=== PATIENT | female | born 1950 | race Caucasian/White ===

== ENCOUNTER 2020-11-26 06:45 | Inpatient (IN) | payer MEDICARE ==
[2020-11-26] MEDS ORDERED: METOPROLOL TARTRATE 5 MG/5 ML VIAL IVP STA (06:47)
[2020-11-26] MEDS ORDERED: HEPARIN SODIUM,PORCINE 5,000 UNIT/ML 1 ML VIAL IV ONE (06:47)
[2020-11-26] MEDS ORDERED: NITROGLYCERIN SL TABS 0.4 MG TAB SUBLINGUAL PRN (06:47)
[2020-11-26] MEDS ORDERED: SODIUM CHLORIDE 0.9% 1,000 ML IV STA (06:47)
[2020-11-26] MEDS ORDERED: ASPIRIN 81 MG PO STA (06:47)
[2020-11-26] MEDS ORDERED: HEPARIN SODIUM,PORCINE 5,000 UNIT/ML 1 ML VIAL IV PRN (06:47)
[2020-11-26] MEDS ORDERED: NITROGLYCERIN-D5W PMX 50 MG in DEXTROSE/WATER 1 250ML.BAG IV ONE (06:50)
--- NOTE | 2020-11-26 06:50 | ED ---
Chest Pain HPI - General Stated Complaint: Chest Pain Time Seen by Provider: 11/26/20 06:47 Source: RN notes reviewed, old records reviewed Limitations: no limitations - History of Present Illness Initial Comments: This is a 70-year-old female DF for evaluation. Patient is a prehospital STEMI secondary severe chest pain and not feeling well. Severe diaphoresis for a cyst, patient is a poor strain secondary to clinical state history obtained by EMS. Prehospital EKG does show positive ST elevated MS MD Complaint: chest pain -: minutes(s) Onset: during rest, awoke with symptoms Pain Location: substernal, left chest Pain Radiation: none Severity: moderate Severity scale (1-10): 6 Quality: tightness, aching, heaviness Consistency: constant Improves With: nothing Worsens With: nothing Anginal Symptoms: diaphoresis, dyspnea Other Symptoms: acid taste in mouth, palpitations Treatments Prior to Arrival: none - Related Data Home Medications Medication Instructions Recorded Confirmed Levothyroxine Sodium [Synthroid] 88 mcg PO SUTUTHSA 02/24/15 11/26/20 Aspirin 81 mg PO DAILY 02/26/15 11/26/20 hydrALAZINE HCL [Apresoline] 50 mg PO TID 02/26/15 11/26/20 Cholecalciferol (Vitamin D3) 125 mcg PO DAILY 11/26/20 11/26/20 [Vitamin D3 (5000 Iu)] Fish Oil/Dha/Epa [Fish Oil 1,200 1 cap PO DAILY 11/26/20 11/26/20 mg Fish Oil] Levothyroxine Sodium [Synthroid] 100 mcg PO MOWEFR 11/26/20 11/26/20 Vitamin B12/Folate & B6 Sl 1 tab PO DAILY 11/26/20 11/26/20 Previous Rx's Medication Instructions Recorded Atorvastatin [Lipitor] 80 mg PO DAILY #30 tab 11/29/20 Clopidogrel [Plavix] 75 mg PO DAILY #30 tab 11/29/20 Furosemide [Lasix] 20 mg PO DAILY #30 tab 11/29/20 Metoprolol Tartrate [Lopressor] 25 mg PO BID #60 tab 11/29/20 Nitroglycerin Sl Tabs [Nitrostat] 0.4 mg SUBLINGUAL Q5M PRN #25 tab 11/29/20 Pantoprazole [Protonix] 40 mg PO AC-BRKFSOnofre #30 tablet. 11/29/20 amLODIPine [Norvasc] 5 mg PO DAILY #30 tab 11/29/20 bisacodyL [Dulcolax] 5 mg PO BID PRN tablet. 11/29/20 Allergies Allergy/AdvReac Type Severity Reaction Status Date / Time NITRILE GLOVES Allergy Rash/Hives-SYSTEMIC Uncoded 11/26/20 07:11 REACTION Review of Systems ROS Statement: Those systems with pertinent positive or pertinent negative responses have been documented in the HPI. ROS Other: All systems not noted in ROS Statement are negative. EKG Findings - EKG Comments: EKG Findings:: EKG shows prehospital EKG rate of 47, ST elevation inferior to 3 aVF and V1 V2 T-wave inversions, KS 226, QRS 62, QTC 4:30. In hospital. EKG shows sinus bradycardia 47 KS 202 QRS 72 QTC 423 Past Medical History Past Medical History: Hypertension, Thyroid Disorder Additional Past Medical History / Comment(s): FRACTURE LEFT ARM History of Any Multi-Drug Resistant Organisms: None Reported Past Surgical History: Cholecystectomy, Hysterectomy Additional Past Surgical History / Comment(s): BILATERAL OOPHORECTOMY Past Anesthesia/Blood Transfusion Reactions: No Reported Reaction Past Psychological History: No Psychological Hx Reported Past Alcohol Use History: Rare Past Drug Use History: None Reported - Past Family History Mother Daughter(s) Family Medical History: Cancer General Exam General appearance: alert, in no apparent distress, anxious Head exam: Present: atraumatic, normocephalic, normal inspection Eye exam: Present: normal appearance, PERRL, EOMI. Absent: scleral icterus, conjunctival injection, periorbital swelling ENT exam: Present: normal exam, mucous membranes moist Neck exam: Present: normal inspection. Absent: tenderness, meningismus, lymphad enopathy Respiratory exam: Present: normal lung sounds bilaterally. Absent: respiratory distress, wheezes, rales, rhonchi, stridor Cardiovascular Exam: Present: regular rate, normal rhythm, normal heart sounds. Absent: systolic murmur, diastolic murmur, rubs, gallop, clicks GI/Abdominal exam: Present: soft, normal bowel sounds. Absent: distended, tenderness, guarding, rebound, rigid Extremities exam: Present: normal inspection, full ROM, normal capillary refill. Absent: tenderness, pedal edema, joint swelling, calf tenderness Back exam: Present: normal inspection Neurological exam: Present: alert, oriented X3, CN II-XII intact Psychiatric exam: Present: normal affect, normal mood Skin exam: Present: warm, dry, intact, normal color. Absent: rash Course Vital Signs 11/26/20 11/26/20 11/26/20 06:46 07:00 07:02 Temperature 98.3 F Pulse Rate 52 L 58 L 58 L Pulse Rate [ Registered Public Surveyor ] Pulse Rate [ Right Supine Radial] Respiratory 18 18 Rate Blood Pressure 170/146 207/116 Blood Pressure [Left Arm] Blood Pressure [Right Arm] O2 Sat by Pulse 95 94 L Oximetry 11/26/20 11/26/20 11/26/20 07:07 07:27 08:55 Temperature Pulse Rate 52 L Pulse Rate [ 66 Registered Public Surveyor ] Pulse Rate [ 56 L Right Supine Radial] Respiratory 18 16 Rate Blood Pressure Blood Pressure 190/82 [Left Arm] Blood Pressure [Right Arm] O2 Sat by Pulse 95 Oximetry 11/26/20 11/26/20 11/26/20 09:10 09:24 09:40 Temperature Pulse Rate Pulse Rate [ 64 63 62 Registered Public Surveyor ] Pulse Rate [ Right Supine Radial] Respiratory 16 16 16 Rate Blood Pressure Blood Pressure 189/81 130/62 146/65 [Left Arm] Blood Pressure [Right Arm] O2 Sat by Pulse 96 96 96 Oximetry 11/26/20 11/26/20 11/26/20 09:55 10:23 10:50 Temperature Pulse Rate Pulse Rate [ 55 L 65 35 L Registered Public Surveyor ] Pulse Rate [ Right Supine Radial] Respiratory 16 16 Rate Blood Pressure Blood Pressure 124/64 135/66 [Left Arm] Blood Pressure [Right Arm] O2 Sat by Pulse 97 96 Oximetry 11/26/20 11/26/20 11/26/20 10:52 11:11 11:17 Temperature Pulse Rate Pulse Rate [ 74 83 80 Registered Public Surveyor ] Pulse Rate [ Right Supine Radial] Respiratory 16 16 16 Rate Blood Pressure Blood Pressure [Left Arm] Blood Pressure 104/58 133/62 132/64 [Right Arm] O2 Sat by Pulse 94 L 92 L Oximetry 11/26/20 12:30 Temperature 97.5 F L Pulse Rate 74 Pulse Rate [ Registered Public Surveyor ] Pulse Rate [ Right Supine Radial] Respiratory 14 Rate Blood Pressure 147/90 Blood Pressure [Left Arm] Blood Pressure [Right Arm] O2 Sat by Pulse 95 Oximetry - Reevaluation(s) Reevaluation #1: STEMI is paged prior to patient arrival Patient is stabilized and taken to the Tinning Equipment Tender Patient is informed of all results and questions are answered Chest Pain MDM - MDM 70 female DEL with prehospital ST elevated MS, patient taken to catheter lab arrival to ER Critical Care Time Critical Care Time: Yes Total Critical Care Time: 31 Disposition Clinical Impression: STEMI (ST elevation myocardial infarction) Disposition: ADMITTED IP TO THIS HOSP Condition: Good Is patient prescribed a controlled substance at d/c from ED?: No
[2020-11-26] MEDS ORDERED: HEPARIN SOD,PORK IN 0.45% NACL 25,000 UNIT in 0.45% NACL 1 250ML.BAG IV SCH (07:00)
[2020-11-26] MEDS ORDERED: NITROGLYCERIN SL TABS 0.4 MG TAB SUBLINGUAL ONE (07:17)
[2020-11-26] MEDS ORDERED: IV FLUID CONTINUATION 1,000 ML IV ONE (07:17)
[2020-11-26] MEDS ORDERED: LIDOCAINE 1% INJ 10MG/ML (20 ML MDV) SQ ONE (07:24)
[2020-11-26] MEDS ORDERED: MIDAZOLAM 2 MG/2 ML VIAL IV ONE (07:25)
[2020-11-26 07:26] LABS: Basophils # (A) 0.1 k/uL (0-0.2); Basophils % (A) 1 %; Eosinophils # (A) 0.3 k/uL (0-0.7); Eosinophils % (A) 4 %; HGB 16.4 gm/dL (11.4-16.0); Lymphocytes % (A) 37 %; MCH 30.5 pg (25.0-35.0); MCHC 32.1 g/dL (31.0-37.0); Mean Platelet Volume 8.9; Monocytes % (A) 13 %; Neutrophils # (A) 3.3 k/uL (1.3-7.7); Neutrophils % (A) 42 %; Platelet Count 197 k/uL (150-450); RBC 5.37 m/uL (3.80-5.40); RDW 13.9 % (11.5-15.5)
[2020-11-26] MEDS ORDERED: fentaNYL (PF) 50 MCG/ML 2 ML AMP ONE (07:31)
[2020-11-26] MEDS ORDERED: fentaNYL (PF) 50 MCG/ML 2 ML AMP IV ONE (07:33)
--- NOTE | 2020-11-26 07:36 | XR ---
EXAMINATION TYPE: XR chest 1V portable DATE OF EXAM: 11/26/2020 COMPARISON: None INDICATION: Chest pain TECHNIQUE: Single frontal view of the chest is obtained. FINDINGS: The heart size is mildly prominent. The pulmonary vasculature is normal. There may be some mild left lower lobe infiltrate present. This is nonspecific. Correlate for atelect asis. IMPRESSION: 1. Cardiomegaly. 2. Mild left lower lobe infiltrate may be related to atelectasis. Follow-up can be performed as clini mary indicated
[2020-11-26 07:45] LABS: Albumin 4.2 g/dL (3.5-5.0); Calcium 9.5 mg/dL (8.4-10.2); Magnesium 1.9 mg/dL (1.6-2.3); Potassium 4.1 mmol/L (3.5-5.1); Total Bilirubin 0.6 mg/dL (0.2-1.3); Total Protein 7.2 g/dL (6.3-8.2)
[2020-11-26] MEDS ORDERED: IOPAMIDOL-370 100ML BTL INJ ONE (07:56)
[2020-11-26] MEDS ORDERED: IOPAMIDOL-370 125ML BTL INJ ONE ×2 (08:05→08:24)
[2020-11-26] MEDS ORDERED: hydrALAZINE HCL 20 MG/ML 1 ML VIAL ONE (08:21)
[2020-11-26] MEDS ORDERED: hydrALAZINE HCL 20 MG/ML 1 ML VIAL IV ONE (08:24)
[2020-11-26] MEDS ORDERED: FUROSEMIDE 10 MG/ML 4 ML VIAL ONE (08:26)
[2020-11-26] MEDS ORDERED: RX INFO: IV CONTRAST WAS GIVEN 1 EACH MISC MISCELLANE PRN (08:34)
[2020-11-26] MEDS ORDERED: FUROSEMIDE 10 MG/ML 4 ML VIAL IV ONE (08:39)
[2020-11-26] MEDS ORDERED: SODIUM CHLORIDE 0.9% 1,000 ML IV SCH (08:45)
[2020-11-26] MEDS ORDERED: LEVOTHYROXINE 88 MCG TAB PO SCH (08:45)
--- NOTE | 2020-11-26 08:47 | P.CRDCN ---
History of Present Illness Consult date: 11/26/20 Chief complaint: Chest pain History of present illness: This is a 70-year-old female patient with hypertension and dyslipidemia who we consulted to see for further evaluation of chest discomfort and possible acute ST segment elevation myocardial infarction. 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 The discomfort was in the middle of the chest as a pre ssure/sharp kind of discomfort with some radiation to her left arm. No associated symptoms of shortness of breath or sweating or dizziness or syncope. In the emergency room we called to see her for possible STEMI. 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 Finally I did perform an aortic root angiogram which revealed fairly calcified right coronary artery which probably is occluded. Potentially down the line she to undergo a CTA for further clarification. We and did not blink any angioplasty on the left circumflex coronary artery because the patient was chest pain-free throughout the procedure. Please note that the patient's blood pressure was more than 200 mm systolic throughout the procedure and also her left ventricular end-diastolic pressure was 35 mmHg. The procedure was performed from the right common femoral artery and ended without any complication. The patient was chest pain-free by the end of the procedure. Past Medical History Past Medical History: Hypertension, Thyroid Disorder Additional Past Medical History / Comment(s): FRACTURE LEFT ARM History of Any Multi-Drug Resistant Organisms: None Reported Past Surgical History: Cholecystectomy, Hysterectomy Additional Past Surgical History / Comment(s): BILATERAL OOPHORECTOMY Past Anesthesia/Blood Transfusion Reactions: No Reported Reaction Past Psychological History: No Psychological Hx Reported Past Alcohol Use History: Rare Past Drug Use History: None Reported - Past Family History Mother Daughter(s) Family Medical History: Cancer Medications and Allergies Home Medications Medication Instructions Recorded Confirmed Type Levothyroxine Sodium [Synthroid] 88 mcg PO MOTUWETHFR 02/24/15 11/26/20 History Aspirin 81 mg PO DAILY 02/26/15 11/26/20 History hydrALAZINE HCL [Apresoline] 50 mg PO QID 02/26/15 11/26/20 History Cholecalciferol (Vitamin D3) 125 mcg PO DAILY 11/26/20 11/26/20 History [Vitamin D3 (5000 Iu)] Fish Oil/Dha/Epa [Fish Oil 1,200 1 cap PO DAILY 11/26/20 11/26/20 History mg Fish Oil] Levothyroxine Sodium [Synthroid] 100 mcg PO SUSA 11/26/20 11/26/20 History Metoprolol Tartrate [Lopressor] 100 mg PO BID 11/26/20 11/26/20 History Vitamin B12/Folate & B6 Sl 1 tab PO DAILY 11/26/20 11/26/20 History Allergies Allergy/AdvReac Type Severity Reaction Status Date / Time NITRILE GLOVES Allergy Rash/Hives-SYSTEMIC Uncoded 11/26/20 07:11 REACTION Physical Exam Vitals: Vital Signs Temp Pulse Pulse Resp BP Pulse Ox 11/26/20 07:27 56 L 11/26/20 07:07 52 L 18 11/26/20 07:02 58 L 18 207/116 94 L 11/26/20 07:00 58 L 11/26/20 06:46 98.3 F 52 L 18 170/146 95 Intake and Output 11/25/20 11/26/20 11/26/20 22:59 06:59 14:59 Intake Total 200 Balance 200 Intake: IV 200 Other: Weight 96.615 kg - Constitutional General appearance: no acute distress - Respiratory Respiratory: bilateral: diminished - Cardiovascular Rhythm: regular Results 11/26/20 06:50 11/26/20 07:02 Cardiac Enzymes 11/26/20 11/26/20 Range/Units 07:02 07:02 AST 32 (14-36) U/L Troponin I <0.012 (0.000-0.034) ng/mL CBC 11/26/20 Range/Units 06:50 WBC 8.0 (3.8-10.6) k/uL RBC 5.37 (3.80-5.40) m/uL Hgb 16.4 H (11.4-16.0) gm/dL Hct 51.0 H (34.0-46.0) % Plt Count 197 (150-450) k/uL Comprehensive Metabolic Panel 11/26/20 Range/Units 07:02 Sodium 140 (137-145) mmol/L Potassium 4.1 (3.5-5.1) mmol/L Chloride 106 (98-107) mmol/L Carbon Dioxide 26 (22-30) mmol/L BUN 25 H (7-17) mg/dL Creatinine 1.34 H (0.52-1.04) mg/dL Glucose 143 H (74-99) mg/dL Calcium 9.5 (8.4-10.2) mg/dL AST 32 (14-36) U/L ALT 30 (4-34) U/L Alkaline Phosphatase 82 (38-126) U/L Total Protein 7.2 (6.3-8.2) g/dL Albumin 4.2 (3.5-5.0) g/dL Current Medications Generic Name Dose Route Start Last Admin Trade Name Freq PRN Reason Stop Dose Admin Aspirin 81 mg 11/26/20 09:00 Aspirin 81 Mg PO DAILY [facility] Atorvastatin Calcium 80 mg 11/26/20 09:00 Atorvastatin 80 Mg Tab PO DAILY [facility] Cholecalciferol 125 mcg 11/26/20 09:00 Cholecalciferol 25 Mcg (1000 Iu) Tablet PO DAILY [facility] Heparin Sodium (Porcine) 0 unit 11/26/20 06:47 Heparin Sodium,Porcine 5,000 Unit/Ml 1 Ml Vial IV Q6HR PRN Low PTT Protocol Hydralazine HCl 50 mg 11/26/20 09:00 Hydralazine Hcl 50 Mg Tab PO QID [facility] Sodium Chloride 1,000 mls @ 100 mls/hr 11/26/20 06:47 11/26/20 07:01 Saline 0.9% IV 11/26/20 16:46 100 mls/hr .Q10H STA Administration Heparin Sodium/Sodium Chloride 250 mls @ 10 mls/hr 11/26/20 07:00 25,000 unit/ Sodium Chloride IV .Q24H [facility] Protocol 10.35 UNITS/KG/HR Nitroglycerin/Dextrose 50 mg/ 250 mls @ 3 mls/hr 11/26/20 06:50 IV Solution IV 11/27/20 06:49 .Q24H ONE Protocol 10 MCG/MIN Sodium Chloride 1,000 mls @ 50 mls/hr 11/26/20 08:45 Saline 0.9% IV 11/26/20 16:46 .Q20H [facility] Levothyroxine Sodium 88 mcg 11/26/20 08:45 Levothyroxine 88 Mcg Tab PO [id number] [facility] Levothyroxine Sodium 100 mcg 11/29/20 06:30 Levothyroxine 100 Mcg Tab PO [id number] [facility] Metoprolol Tartrate 100 mg 11/26/20 09:00 Metoprolol Tartrate 50 Mg Tab PO BID [facility] Miscellaneous Information 1 each 11/26/20 08:34 Rx Info: Iv Contrast Was Given 1 Each Misc MISCELLANE 11/28/20 08:34 DAILY PRN Per Protocol Morphine Sulfate 4 mg 11/26/20 06:47 Morphine Sulfate 4 Mg/Ml Syringe IV Q4HR PRN Chest Pain Nitroglycerin 0.4 mg 11/26/20 06:47 Nitroglycerin Sl Tabs 0.4 Mg Tab SUBLINGUAL Q5M PRN Chest Pain Non-Formulary Medication 1 cap 11/26/20 09:00 Fish Oil/Dha/Epa [Fish Oil 1,200 Mg Fish Oil] PO DAILY [facility] Non-Formulary Medication 1 tab 11/26/20 09:00 Vitamin B12/Folate & B6 Sl PO DAILY [facility] Intake and Output 11/25/20 11/26/20 11/26/20 22:59 06:59 14:59 Intake Total 200 Balance 200 Intake: IV 200 Other: Weight 96.615 kg 11/26/20 06:50 11/26/20 07:02 Assessment and Plan Assessment: Assessment #1 hypertension emergency #2 elevated left ventricular end-diastolic pressure #3 chest discomfort which has resolved and likely related to hypertension emergency #4 dyslipidemia Plan #1 blood pressure control #2 DC metoprolol in view of the bradycardia #3 start the patient on Norvasc #4 start the patient on IV diuretics #5 continue aspirin #6 high intensity statin #7 an echocardiogram was Doppler #8 monitor the kidney function and electrolytes #9 consider PCI of the left circumflex if the patient started symptomatic again Thank you for allowing us participate in her care
[2020-11-26] MEDS ORDERED: METOPROLOL TARTRATE 25 MG TAB PO SCH (09:00)
[2020-11-26] MEDS ORDERED: CHOLECALCIFEROL 25 MCG (1000 IU) TABLET PO SCH (09:00)
[2020-11-26] MEDS ORDERED: METOPROLOL TARTRATE 50 MG TAB PO SCH (09:00)
[2020-11-26] MEDS: amLODIPine 5 MG TAB PO SCH (09:37)
[2020-11-26] MEDS: hydrALAZINE HCL 50 MG TAB PO SCH ×4 (09:37→21:19)
--- NOTE | 2020-11-26 09:40 | LTR ---
November 26, 2020 Re: Sybil Maldonado Dear Dr. Moore: Mrs. Sybil Maldonado presented to [facility] with chest discomfort concerning for acute coronary syndrome. 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 Her pressure was severely elevated and also her left ventricular end-diastolic pressure. I advised the patient to be treated medically at this point. If she continues to be symptomatic, we will consider doing PCI of the left circumflex coronary artery. Sincerely, MD VIDAL Wells / SINGH: [id number] /
--- NOTE | 2020-11-26 09:49 | CC ---
CARDIAC CATHETERIZATION REPORT DATE OF SERVICE: November 26, 2020 PERFORMING PHYSICIAN: Sky Foss MD. PROCEDURE PERFORMED: 1. Selective left and right coronary angiogram. 2. Left heart catheterization. 3. Aortic root angiogram. INDICATION: This is a 70-year-old female patient with hypertension and dyslipidemia who presented to the emergency department complaining of chest discomfort. She was seen and evaluated in the ER where there was a concern about acute coronary syndrome and because of that, a heart catheterization was advised. APPROACH: Right common femoral artery. COMPLICATION: None. LEVEL OF SEDATION: Moderate with sedation length of 78 minutes. PROCEDURE DESCRIPTION: After obtaining an informed consent, the patient was brought to the cardiac farm labor contractor. The right common femoral artery was cannulated using micropuncture technique and a micropuncture wire passed easily then I placed a 6-Arabic sheath at the right common femoral artery. I did perform selective left coronary angiogram with JL4 catheter. Attempting performing selective right coronary angiogram was unsuccessful in spite of trying JR4 catheter, Rudy Right catheter, Rudy Right Posterior catheter, an AL 0.75, an AL1, an ALT 2, and multipurpose, and also the XB right catheter, and also an AR catheters. After that I did non selective right coronary angiogram and aortic root angiogram which revealed very calcified right coronary artery which possibly chronically occluded as well. After that, I did left heart catheterization using 6-Arabic pigtail catheter. The procedure was completed without any complication. SELECTIVE CORONARY ANGIOGRAM: 1. The left main is a large caliber vessel. It is angiographically normal. It bifurcates into LCX and LAD. 2. The LCX is a large caliber vessel. The proximal left circumflex appeared to have intermediate to severe lesion in the range of 60% to 70%.. It gives rise into the first obtuse marginal branch which appeared to be angiographically normal. The circumflex continues after that as a small to medium caliber vessel in the AV groove. 3. The LAD: The proximal LAD is angiographically normal. The mid LAD has mild disease only and the LAD distally appeared to be angiographically normal. The LAD gives rise into diagonal branch which seems to be angiographically normal. 4. The right coronary artery as I mentioned was not opacified. AORTIC ROOT ANGIOGRAM: The aortic root angiogram was performed in the BURGESS projection and using a power injection. The aortic root appeared to be angiographically normal without any evidence of dissection. HEMODYNAMICS: The LVEDP was 35 mmHg without significant gradient across the aortic valve. CONCLUSION: 1. Calcified right and left coronary systems. 2. Intermediate to severe lesion involving the proximal left circumflex coronary artery. 3. Mild disease involving the left anterior descending artery. 4. The RCA was not opacified and probably chronically occluded. 5. Severely elevated LVEDP. POSTPROCEDURE MANAGEMENT: 1. Get the blood pressure under control. 2. Anti-platelet medications. 3. High-intensity statin. 4. Blood pressure control. 5. Obtain an echocardiogram with Doppler. 6. Follow up with the patient. MMODL / IJN: [id number] /
[2020-11-26] MEDS ORDERED: HYDROmorphone 1 MG/ML 1 ML SYRINGE ONE (10:30)
[2020-11-26] MEDS: ASPIRIN 81 MG PO SCH (11:39)
--- NOTE | 2020-11-26 11:59 | ECHOF ---
Referral Reason:ACS MEASUREMENTS -------- HEIGHT: 157.5 cm WEIGHT: 96.6 kg BP: 189/81 RVIDd: 2.8 cm (< 3.3) IVSd: 1.4 cm (0.6 - 1.1) LVIDd: 3.6 cm (3.9 - 5.3) LVPWd: 1.3 cm (0.6 - 1.1) IVSs: 1.9 cm LVIDs: 2.4 cm LVPWs: 1.5 cm LA Diam: 3.6 cm (2.7 - 3.8) Ao Diam: 3.2 cm (2.0 - 3.7) AV Cusp: 2.4 cm (1.5 - 2.6) MV EXCURSION: 15.119 mm (> 18.000) MV EF SLOPE: 25 mm/s (70 - 150) EPSS: 1.4 cm MV E Adolph: 0.90 m/s MV DecT: 288 ms MV A Adolph: 1.12 m/s MV E/A Ratio: 0.80 RAP: 5.00 mmHg RVSP: 30.53 mmHg FINDINGS -------- Resting bradycardia (HR<60bpm). This was a technically difficult study with suboptimal views. The left ventricular size is normal. There is moderate concentric left ventricular hypertrophy. O verall left ventricular systolic function is normal with, an EF between 60 - 65 %. The right ventricle is normal in size. The left atrium is normal in size. The right atrium was not well visualized. Lumason used Interatrial and interventricular septum intact. Aortic valve is trileaflet and is mildly thickened. The mitral valve is normal. Mild tricuspid regurgitation present. Right ventricular systolic pressure is normal at < 35 mmHg. The pulmonic valve was not well visualized. The aortic root size is normal. Normal inferior vena cava with normal inspiratory collapse consistent with estimated right atrial pre ssure of 5 mmHg. There is no pericardial effusion. CONCLUSIONS -------- 1. The left ventricular size is normal. 2. There is moderate concentric left ventricular hypertrophy. 3. Overall left ventricular systolic function is normal with, an EF between 60 - 65 %. 4. Lumason used 5. Aortic valve is trileaflet and is mildly thickened. 6. Mild tricuspid regurgitation present. 7. There is no pericardial effusion. DIRECTOR OF FOOD AND NUTRITION SERVICES: Jazzmine Bryan RDCS
[2020-11-26 12:07] LABS: Glucose,Whole Blood 138 mg/dL (75-99)
--- NOTE | 2020-11-26 12:12 | P.HPIM ---
History of Present Illness H&P Date: 11/26/20 HISTORY OF PRESENT ILLNESS This is a 70-year-old female patient of Dr. Moore with past medical history of hypertension, hypothyroidism, active tobacco use. Patient was last seen in the office 2 days ago at that time had lab work done and did not have any complaints of chest pain. Patient states she had sudden onset of chest pain at 550 this morning and thought it was heartburn-type and tightening in her chest. She also had sweats and shortness of breath. She came into [facility] emergency center for evaluation and EKG by EMS was concerning for ST elevated myocardial infarction and underwent an emergent heart catheterization with Dr. 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 Aaortic root angiogram revealed fairly calcified right coronary artery which probably is occluded. Potentially down the line she to undergo a CTA for further clarification. she did not undergo angioplasty on the left circumflex coronary artery because the patient was chest pain-free throughout the procedure. blood pressure was elevated throughout procedure and Norvasc was added and recommended discontinuing the metoprolol due to alexis ycardia. Patient is seen today on the extended care unit. REVIEW OF SYSTEMS At the time of evaluation: Constitutional: No fever, no chills, no night sweats. No weight change. No weakness, fatigue or lethargy. No daytime sleepiness. EENT: No headache. No blurred vision or double vision, no loss of vision. No loss of Hearing, no ringing in the ears, no dizziness. No nasal drainage or congestion. No epistaxis. No sore throat. Lungs: No shortness of breath, cough, no sputum production. No wheezing. Cardiovascular: No chest pain, no lower extremity edema. No palpitations. No paroxysmal nocturnal dyspnea. No orthopnea. No lightheadedness or dizziness. No syncopal episodes. Abdominal: No abdominal pain. No nausea, vomiting. No diarrhea. No constipation. No bloody or tarry stools.. No loss of appetite. Genitourinary: No dysuria, increased frequency, urgency. No urinary retention. Musculoskeletal: No myalgias. No muscle weakness, no gait dysfunction, no frequent falls. No back pain. No neck pain. Integumentary: No wounds, no lesions. No rash or pruritus. No unusual bruising. No change in hair or nails. Neurologic: No aphasia. No facial droop. No change in mentation. No head injury. No headache. No paralysis. No paresthesia. Psychiatric: No depression. No anxiety. No mood swings. Endocrine: No abnormal blood sugars. No weight change. No excessive sweating or thirst. No cold intolerance. SOCIAL HISTORY patient is an active smoker cut down to 3 cigarettes per day and has been smoking for greater than 50 years. She denies any marijuana or street drug use. No alcohol use. Patient lives at home with her . FAMILY HISTORY Mother at age 86 with history of hypertension. Father is alive at age 91 with history of hypertension, coronary artery disease, diabetes. Patient has 2 brothers with no major medical problems. Patient has 3 sisters and one has history of diabetes. Patient has 1 son and 2 daughters with no major medical problems. PHYSICAL EXAMINATION Gen: This is a 70-year-old obese female. She is resting on a stretcher and a ppears to be in no acute distress. HEENT: Head is atraumatic, normocephalic. Pupils equal, round. Sclerae is anicteric. Oral mucous membranes slightly dry. NECK: Supple. No JVD. No lymphadenopathy. No thyromegaly. LUNGS: Clear to auscultation. No wheezes or rhonchi. No intercostal retractions. HEART: Regular rate and rhythm. No murmur. ABDOMEN: Soft. Bowel sounds are present. No masses. No tenderness. EXTREMITIES: No pedal edema. No calf tenderness. NEUROLOGICAL: Patient is awake, alert and oriented x3. Cranial nerves 2 through 12 are grossly intact. ASSESSMENT AND PLAN 1. Chest pain secondary to hypertensive emergency status post heart catheterization with Dr. Foss. Continue aspirin 81 mg daily, Lipitor 80 mg daily, Norvasc 5 mg daily. 2. Hypertensive emergency. Patient started on Norvasc 5 mg daily, continue hydralazine 50 mg qid, lasix 20 mg IVP every 12 hours. Lopressor discontinued. 3. Bradycardia. Metoprolol discontinued. 4. Hypothyroidism. Continue levothyroxine 88 g Tuesday through Tuesday and 100 g on Tuesday and Tuesday 5. Chronic kidney disease stage 3. Avoid nephrotoxic agents. 6. Tobacco use and dependence. Nicotine patch. 7. GI prophylaxis. Protonic 40 mg po daily. Patient will be admitted to the hospital for a minimum of 2 night stay. DISCHARGE PLAN Home. Impression and plan of care have been directed as dictated by the signing physician. Micki Pinedo nurse practitioner acting as scribe for signing physician. Past Medical History Past Medical History: Hypertension, Thyroid Disorder Additional Past Medical History / Comment(s): FRACTURE LEFT ARM History of Any Multi-Drug Resistant Organisms: None Reported Past Surgical History: Cholecystectomy, Hysterectomy Additional Past Surgical History / Comment(s): BILATERAL OOPHORECTOMY Past Anesthesia/Blood Transfusion Reactions: No Reported Reaction Past Psychological History: No Psychological Hx Reported Past Alcohol Use History: Rare Past Drug Use History: None Reported - Past Family History Mother Daughter(s) Family Medical History: Cancer Medications and Allergies Home Medications Medication Instructions Recorded Confirmed Type Levothyroxine Sodium [Synthroid] 88 mcg PO MOTUWETHFR 02/24/15 11/26/20 History Aspirin 81 mg PO DAILY 02/26/15 11/26/20 History hydrALAZINE HCL [Apresoline] 50 mg PO TID 02/26/15 11/26/20 History Cholecalciferol (Vitamin D3) 125 mcg PO DAILY 11/26/20 11/26/20 History [Vitamin D3 (5000 Iu)] Fish Oil/Dha/Epa [Fish Oil 1,200 1 cap PO DAILY 11/26/20 11/26/20 History mg Fish Oil] Levothyroxine Sodium [Synthroid] 100 mcg PO SUSA 11/26/20 11/26/20 History Metoprolol Tartrate [Lopressor] 100 mg PO BID 11/26/20 11/26/20 History Vitamin B12/Folate & B6 Sl 1 tab PO DAILY 11/26/20 11/26/20 History Allergies Allergy/AdvReac Type Severity Reaction Status Date / Time NITRILE GLOVES Allergy Rash/Hives-SYSTEMIC Uncoded 11/26/20 07:11 REACTION Physical Exam Vitals: Vital Signs Temp Pulse Pulse Resp BP Pulse Ox 11/26/20 07:27 56 L 11/26/20 07:07 52 L 18 11/26/20 07:02 58 L 18 207/116 94 L 11/26/20 07:00 58 L 11/26/20 06:46 98.3 F 52 L 18 170/146 95 Intake and Output 11/25/20 11/26/20 11/26/20 22:59 06:59 14:59 Intake Total 200 Balance 200 Intake: IV 200 Other: Weight 96.615 kg Results CBC & Chem 7: 11/26/20 06:50 11/26/20 07:02 Labs: Abnormal Lab Results - Last 24 Hours (Table) 11/26/20 11/26/20 Range/Units 06:50 07:02 Hgb 16.4 H (11.4-16.0) gm/dL Hct 51.0 H (34.0-46.0) % BUN 25 H (7-17) mg/dL Creatinine 1.34 H (0.52-1.04) mg/dL Glucose 143 H (74-99) mg/dL
[2020-11-26] MEDS: NICOTINE 7MG/24HR PATCH TRANSDERM SCH (12:17)
[2020-11-26] MEDS: B6 PO SCH (12:27)
[2020-11-26] MEDS: NON FORMULARY DRUG (Fish Oil/Dha/Epa [Fish Oil 1,200 Mg Fish Oil] 1 EACH Capsule) PO SCH (12:27)
[2020-11-26] MEDS: FOLATE PO SCH (12:27)
[2020-11-26] MEDS: VITAMIN B12 PO SCH (12:27)
[2020-11-26] MEDS: ATORVASTATIN 80 MG TAB PO SCH (13:00)
[2020-11-26] MEDS: LEVOTHYROXINE 100 MCG TAB PO SCH (14:58)
[2020-11-26] MEDS: MORPHINE SULFATE 4 MG/ML SYRINGE IV PRN (19:01)
[2020-11-26] MEDS: CHOLECALCIFEROL 25 MCG (1000 IU) TABLET PO SCH (21:19)
[2020-11-26] MEDS: FUROSEMIDE 10 MG/ML 2 ML VIAL IV SCH (21:19)
[2020-11-27 05:02] LABS: Basophils # (A) 0.1 k/uL (0-0.2); Basophils % (A) 0 %; Eosinophils # (A) 0.1 k/uL (0-0.7); Eosinophils % (A) 1 %; HGB 15.8 gm/dL (11.4-16.0); Lymphocytes # (A) 1.5 k/uL (1.0-4.8); Lymphocytes % (A) 11 %; MCH 30.7 pg (25.0-35.0); MCHC 32.2 g/dL (31.0-37.0); MCV 95.2 fL (80.0-100.0); Mean Platelet Volume 8.9; Monocytes # (A) 1.2 k/uL (0-1.0); Monocytes % (A) 9 %; Neutrophils # (A) 10.8 k/uL (1.3-7.7); Neutrophils % (A) 78 %; Platelet Count 197 k/uL (150-450); RBC 5.15 m/uL (3.80-5.40); RDW 13.7 % (11.5-15.5); WBC 13.8 k/uL (3.8-10.6)
[2020-11-27 06:16] LABS: Calcium 9.9 mg/dL (8.4-10.2); Potassium 4.5 mmol/L (3.5-5.1)
[2020-11-27] MEDS: PANTOPRAZOLE 40 MG TABLET PO SCH (06:53)
[2020-11-27] MEDS: LEVOTHYROXINE 88 MCG TAB PO SCH (06:55)
[2020-11-27] MEDS ORDERED: ASPIRIN 325 MG TAB PO SCH (09:00)
--- NOTE | 2020-11-27 11:25 | PN ---
PROGRESS NOTE Sybil is a 70-year-old lady who is admitted to the hospital with acute myocardial infarction and underwent emergent cardiac catheterization that showed moderate to severe stenosis involving circumflex coronary artery. The right coronary artery could not be visualized on this test. The patient ruled in for myocardial infarction. The peak troponin was 37 this morning. At the time of my evaluation, she is free of symptoms. Denies chest pain or difficulty in breathing. PHYSICAL EXAMINATION: Afebrile. Heart rate is 61 beats per minute. Blood pressure is 130/72. Respiratory rate is 18. O2 saturation is 95% on 2 L. There is no jugular venous distention. Chest exam reveals good air entry bilaterally. Heart exam reveals first and second heart sounds. Systolic murmur at the apex. Abdomen is soft. Examination of extremities did not reveal any edema. Groin is free of bleeding, bruit or hematoma. Foot pulses are intact. LABS: Labs show that the hemoglobin is 15.8, platelet count is 197. Potassium is 4.5. Creatinine is 1.3. Troponin is 37. Total cholesterol is 176, LDL is 93, HDL is 60. ASSESSMENT: Acute myocardial infarction, status post catheterization and advised medical therapy. Right coronary artery could not be visualized and patient has a moderate stenosis involving circumflex coronary artery. Her echocardiogram showed normal LV systolic function without any wall motion abnormalities. An EKG showed sinus bradycardia with poor R-wave progression. PLAN: The patient will continue with aspirin. I will add Plavix. Continue the amlodipine, is refusing Lipitor and she is on hydralazine, which I am going to continue. I will transfer her out of ICU. MMODL / IJN: [id number] /
[2020-11-27] MEDS: MORPHINE SULFATE 4 MG/ML SYRINGE IV PRN (11:30)
[2020-11-27] MEDS: hydrALAZINE HCL 50 MG TAB PO SCH ×4 (11:31→22:02)
[2020-11-27] MEDS: ATORVASTATIN 80 MG TAB PO SCH (11:31)
[2020-11-27] MEDS: ASPIRIN 81 MG PO SCH (11:32)
[2020-11-27] MEDS: FUROSEMIDE 10 MG/ML 2 ML VIAL IV SCH ×2 (11:32→22:02)
[2020-11-27] MEDS: VITAMIN B12 PO SCH (11:33)
[2020-11-27] MEDS: FOLATE PO SCH (11:33)
[2020-11-27] MEDS: B6 PO SCH (11:33)
[2020-11-27] MEDS: NON FORMULARY DRUG (Fish Oil/Dha/Epa [Fish Oil 1,200 Mg Fish Oil] 1 EACH Capsule) PO SCH (11:33)
[2020-11-27] MEDS: NICOTINE 7MG/24HR PATCH TRANSDERM SCH ×2 (11:46→15:48)
[2020-11-27] MEDS: amLODIPine 5 MG TAB PO SCH (11:46)
[2020-11-27] MEDS: METOPROLOL TARTRATE 25 MG TAB PO SCH ×2 (11:46→22:02)
--- NOTE | 2020-11-27 16:41 | P.PN ---
Subjective Progress Note Date: 11/27/20 HISTORY OF PRESENT ILLNESS This is a 70-year-old female patient of Dr. Moore with past medical history of hypertension, hypothyroidism, active tobacco use. Patient was last seen in the office 2 days ago at that time had lab work done and did not have any complaints of chest pain. Patient states she had sudden onset of chest pain at 550 this morning and thought it was heartburn-type and tightening in her chest. She also had sweats and shortness of breath. She came into [facility] emergency center for evaluation and EKG by EMS was concerning for ST elevated myocardial infarction and underwent an emergent heart catheterization with Dr. 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 Aaortic root angiogram revealed fairly calcified right coronary artery which probably is occluded. Potentially down the line she to undergo a CTA for further clarification. she did not undergo angioplasty on the left circumflex coronary artery because the patient was chest pain-free throughout the procedure. blood pressure was elevated throughout procedure and Norvasc was added and recommended discontinuing the metoprolol due to bradycardi a. Patient is seen today on the extended care unit. 11/27: Echocardiogram reveals EF of 60-65% with moderate concentric left ventricle hypertrophy, mild tricuspid regurgitation, suboptimal study. EKG was sinus bradycardia and poor R-wave progression. Cardiology has added Plavix to her regime and has resumed Lopressor 25 mg twice daily. Plan is to transfer out of ICU today. Patient has been afebrile, heart rate 66, blood pressure 145/71, pulse ox 94% on room air. 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 Patient is stating that she has a little tightness in her chest. Yesterday she had pain in her left arm and face but none today. She is feeling a little short of breath. Repeat blood work reveals WBC 13.8, hemoglobin 15.8, platelet count 197. Electrolytes are all normal except for CO2 of 31, BUN 22 and creatinine 1.36 patient's baseline. Blood sugar 134. Triglycerides 115, cholesterol 176, LDL 93, HDL 60. REVIEW OF SYSTEMS At the time of evaluation: Constitutional: No fever, no chills, no night sweats. No weight change. No weakness, fatigue or lethargy. No daytime sleepiness. EENT: No headache. No blurred vision or double vision, no loss of vision. No loss of Hearing, no ringing in the ears, no dizziness. No nasal drainage or congestion. No epistaxis. No sore throat. Lungs: Reports mild shortness of breath, cough, no sputum production. No wheezing. Cardiovascular: Reports intermittent chest pain, no lower extremity edema. No palpitations. No paroxysmal nocturnal dyspnea. No orthopnea. No lightheadedness or dizziness. No syncopal episodes. Abdominal: No abdominal pain. No nausea, vomiting. No diarrhea. No constipation. No bloody or tarry stools.. No loss of appetite. Genitourinary: No dysuria, increased frequency, urgency. No urinary retention. Musculoskeletal: No myalgias. No muscle weakness, no gait dysfunction, no f requent falls. No back pain. No neck pain. Integumentary: No wounds, no lesions. No rash or pruritus. No unusual bruising. No change in hair or nails. Neurologic: No aphasia. No facial droop. No change in mentation. No head injury. No headache. No paralysis. No paresthesia. Psychiatric: No depression. No anxiety. No mood swings. Endocrine: No abnormal blood sugars. No weight change. No excessive sweating or thirst. No cold intolerance. PHYSICAL EXAMINATION Gen: This is a 70-year-old obese female. She is resting on a stretcher and appears to be in no acute distress. HEENT: Head is atraumatic, normocephalic. Pupils equal, round. Sclerae is anicteric. NECK: Supple. No JVD. No lymphadenopathy. No thyromegaly. LUNGS: Clear to auscultation. No wheezes or rhonchi. No intercostal retractions. HEART: Regular rate and rhythm. No murmur. ABDOMEN: Soft. Bowel sounds are present. No masses. No tenderness. EXTREMITIES: No pedal edema. No calf tenderness. NEUROLOGICAL: Patient is awake, alert and oriented x3. Cranial nerves 2 through 12 are grossly intact. ASSESSMENT AND PLAN 1. Acute myocardial infarction status post heart catheterization with Dr. Foss finding intermediate to severe disease in the proximal left circumflex artery. Continue aspirin 81 mg daily, Lipitor 80 mg daily, Norvasc 5 mg daily, cardiology added Plavix 75 mg daily. 2. Hypertensive emergency. Patient started on Norvasc 5 mg daily, continue hydralazine 50 mg qid, lasix 20 mg IVP every 12 hours. Lopressor resumed at 25 mg twice daily. 3. Bradycardia. Metoprolol discontinued. 4. Hypothyroidism. Continue levothyroxine 88 g Tuesday through Tuesday and 100 g on Tuesday and Tuesday 5. Chronic kidney disease stage 3. Avoid nephrotoxic agents. 6. Tobacco use and dependence. Nicotine patch. 7. GI prophylaxis. Protonic 40 mg po daily. DISCHARGE PLAN Home. Impression and plan of care have been directed as dictated by the signing physician. Micki Pinedo nurse practitioner acting as scribe for signing physician. Objective - Vital Signs Vital signs: Vital Signs Temp 97.7 F 11/27/20 04:00 Pulse 67 11/27/20 07:00 Resp 21 11/27/20 07:00 BP 129/77 11/27/20 07:00 Pulse Ox 95 11/27/20 07:00 Intake & Output 11/26/20 11/27/20 11/27/20 18:59 06:59 18:59 Intake Total 750 Output Total 1845 1075 35 Balance -1095 -1075 -35 Weight 96.615 kg 94.2 kg Intake: IV 750 Sodium Chloride 0.9% 1, 550 000 ml @ 50 mls/hr IV . Q20H [facility] Rx#:[id number] Output: Urine 1845 1075 35 Other: Voiding Method Indwelling Catheter Indwelling Catheter # Voids 1 - Labs CBC & Chem 7: 11/27/20 04:28 11/27/20 04:28 Labs: Abnormal Lab Results - Last 24 Hours (Table) 11/26/20 11/26/20 11/26/20 Range/Units 11:41 12:05 19:44 WBC (3.8-10.6) k/uL Hct (34.0-46.0) % Neutrophils # (1.3-7.7) k/uL Monocytes # (0-1.0) k/uL Carbon Dioxide (22-30) mmol/L BUN (7-17) mg/dL Creatinine (0.52-1.04) mg/dL Glucose (74-99) mg/dL POC Glucose (mg/dL) 138 H (75-99) mg/dL Troponin I 0.618 H* 13.200 H* (0.000-0.034) ng/mL 11/27/20 11/27/20 11/27/20 Range/Units 04:28 04:28 04:28 WBC 13.8 H (3.8-10.6) k/uL Hct 49.0 H (34.0-46.0) % Neutrophils # 10.8 H (1.3-7.7) k/uL Monocytes # 1.2 H (0-1.0) k/uL Carbon Dioxide 31 H (22-30) mmol/L BUN 22 H (7-17) mg/dL Creatinine 1.36 H (0.52-1.04) mg/dL Glucose 134 H (74-99) mg/dL POC Glucose (mg/dL) (75-99) mg/dL Troponin I 37.000 H* (0.000-0.034) ng/mL
[2020-11-27] MEDS: CHOLECALCIFEROL 25 MCG (1000 IU) TABLET PO SCH (22:03)
[2020-11-28] MEDS: LEVOTHYROXINE 100 MCG TAB PO SCH (06:09)
[2020-11-28] MEDS: PANTOPRAZOLE 40 MG TABLET PO SCH (06:09)
[2020-11-28] MEDS: hydrALAZINE HCL 50 MG TAB PO SCH ×4 (08:45→20:33)
[2020-11-28] MEDS: FUROSEMIDE 10 MG/ML 2 ML VIAL IV SCH ×2 (08:45→20:55)
[2020-11-28] MEDS: METOPROLOL TARTRATE 25 MG TAB PO SCH ×2 (08:46→20:33)
[2020-11-28] MEDS: amLODIPine 5 MG TAB PO SCH (08:46)
[2020-11-28] MEDS: NON FORMULARY DRUG (Fish Oil/Dha/Epa [Fish Oil 1,200 Mg Fish Oil] 1 EACH Capsule) PO SCH (08:46)
[2020-11-28] MEDS: CLOPIDOGREL 75 MG TAB PO SCH (08:46)
[2020-11-28] MEDS: ATORVASTATIN 80 MG TAB PO SCH (08:46)
[2020-11-28] MEDS: ASPIRIN 81 MG PO SCH (08:46)
[2020-11-28] MEDS: FOLATE PO SCH (08:47)
[2020-11-28] MEDS: B6 PO SCH (08:47)
[2020-11-28] MEDS: VITAMIN B12 PO SCH (08:47)
[2020-11-28 09:13] LABS: Mean Platelet Volume 8.7; Platelet Count 180 k/uL (150-450)
--- NOTE | 2020-11-28 13:04 | PN ---
PROGRESS NOTE Sybil is a 70-year-old lady who was admitted to the hospital with acute myocardial infarction. The patient underwent emergent cardiac catheterization where she was found to have moderate stenosis involving circumflex coronary artery, but they could not opacify the right coronary artery. Subsequent EKG showed ST-segment elevation in the inferior leads and she had a significant myocardial infarction with a peak troponin of 37, but she remained chest pain free and was not short of breath and an echocardiogram that she had showed normal LV function without any wall motion abnormalities. I saw her yesterday for the first time and treated her with aspirin, Lipitor, Plavix and Lopressor. Clinically, she did fairly well since yesterday. She has renal insufficiency with a creatinine of 1.3. This morning patient remains chest pain free. She is not short of breath and is hemodynamically stable. An EKG shows sinus bradycardia with ST-segment elevation in the inferior leads. I spoke to Dr. Foss, the willow machine tender, who initially evaluated her and performed cardiac catheterization and given the fact that patient is chest pain free, hemodynamically stable and probably completed her infarct and we could not find the right coronary artery in the past, he felt that the patient is better off continuing with medical therapy. However, if patient develops any symptoms, he will consider either revascularizing the circumflex coronary artery or try again to see if we can locate the right coronary artery. PHYSICAL EXAMINATION: On exam today, heart rate is 76 beats per minute. The patient is afebrile. Blood pressure is 150/80. Respiratory rate is .O2 saturation is 94%. Chest exam reveals good air entry bilaterally. Heart exam reveals first and second heart sounds. No gallop. No murmur. Abdomen is soft, nontender. Examination of extremities did not reveal any edema. Peripheral pulses are felt. LABS: Labs from today are pending. From yesterday, potassium was 4.5 creatinine is 1.3, hemoglobin is 15.8. LDL cholesterol is 93. ASSESSMENT: Acute inferior wall myocardial infarction. PLAN: I will repeat an echo on her today to assess her LV function and wall motion again. Unfortunately, we could not locate the right coronary artery and could not revascularize her. We will continue with medical therapy and I want to watch her in the hospital for another day or 2 because of the concern with mechanical complication in a patient in whom we could not perform revascularization. I discussed these issues at length with the patient. She understands these issues and is in agreement with the plans. VIDAL / JORGEN: [id number] /
--- NOTE | 2020-11-28 15:26 | P.PN ---
Subjective Progress Note Date: 11/28/20 HISTORY OF PRESENT ILLNESS This is a 70-year-old female patient of Dr. Moore with past medical history of hypertension, hypothyroidism, active tobacco use. Patient was last seen in the office 2 days ago at that time had lab work done and did not have any complaints of chest pain. Patient states she had sudden onset of chest pain at 550 this morning and thought it was heartburn-type and tightening in her chest. She also had sweats and shortness of breath. She came into [facility] emergency center for evaluation and EKG by EMS was concerning for ST elevated myocardial infarction and underwent an emergent heart catheterization with Dr. 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 Aortic root angiogram revealed fairly calcified right coronary artery which probably is occluded. Potentially down the line she to undergo a CTA for further clarification. she did not undergo angioplasty on the left circumflex coronary artery because the patient was chest pain-free throughout the procedure. blood pressure was elevated throughout procedure and Norvasc was added and recommended discontinuing the metoprolol due to bradycardia. Patient is seen today on the extended care unit. 11/27: Echocardiogram reveals EF of 60-65% with moderate concentric left ventricle hypertrophy, mild tricuspid regurgitation, suboptimal study. EKG was sinus bradycardia and poor R-wave progression. Cardiology has added Plavix to her regime and has resumed Lopressor 25 mg twice daily. Plan is to transfer out of ICU today. Patient has been afebrile, heart rate 66, blood pressure 145/71, pulse ox 94% on room air. monitoring tech is a sinus rhythm. Patient is stating that she has a little tightness in her chest. Yesterday she had pain in her left arm and face but none today. She is feeling a little short of breath. Repeat blood work reveals WBC 13.8, hemoglobin 15.8, platelet count 197. Electrolytes are all normal except for CO2 of 31, BUN 22 and creatinine 1.36 patient's baseline. Blood sugar 134. Triglycerides 115, cholesterol 176, LDL 93, HDL 60. 11/28: Dr. Alvarado reevaluated patient with plan for continued medical management and monitor over the next 1-2 nights with concern for complication. Patient states she's had some nausea. No chest pain. No lightheadedness or dizziness. She has been afebrile, heart rate 76, blood pressure 150/85, pulse ox 94% on room air. Basic chemistry panel ordered for tomorrow. Limited echocardiogram has been done today and report is pending. REVIEW OF SYSTEMS At the time of evaluation: Constitutional: No fever, no chills, no night sweats. No weight change. No weakness, fatigue or lethargy. No daytime sleepiness. EENT: No headache. No blurred vision or double vision, no loss of vision. No loss of Hearing, no ringing in the ears, no dizziness. No nasal drainage or congestion. No epistaxis. No sore throat. Lungs: Reports mild shortness of breath, cough, no sputum production. No wheezing. Cardiovascular: Reports intermittent chest pain, no lower extremity edema. No palpitations. No paroxysmal nocturnal dyspnea. No orthopnea. No lightheade dness or dizziness. No syncopal episodes. Abdominal: No abdominal pain. No nausea, vomiting. No diarrhea. No constipation. No bloody or tarry stools.. No loss of appetite. Genitourinary: No dysuria, increased frequency, urgency. No urinary retention. Musculoskeletal: No myalgias. No muscle weakness, no gait dysfunction, no frequent falls. No back pain. No neck pain. Integumentary: No wounds, no lesions. No rash or pruritus. No unusual bruising. No change in hair or nails. Neurologic: No aphasia. No facial droop. No change in mentation. No head injury. No headache. No paralysis. No paresthesia. Psychiatric: No depression. No anxiety. No mood swings. Endocrine: No abnormal blood sugars. No weight change. No excessive sweating or thirst. No cold intolerance. PHYSICAL EXAMINATION Gen: This is a 70-year-old obese female. She is resting on a stretcher and appears to be in no acute distress. HEENT: Head is atraumatic, normocephalic. Pupils equal, round. Sclerae is anicteric. NECK: Supple. No JVD. No lymphadenopathy. No thyromegaly. LUNGS: Clear to auscultation. No wheezes or rhonchi. No intercostal retractions. HEART: Regular rate and rhythm. No murmur. ABDOMEN: Soft. Bowel sounds are present. No masses. No tenderness. EXTREMITIES: No pedal edema. No calf tenderness. NEUROLOGICAL: Patient is awake, alert and oriented x3. Cranial nerves 2 through 12 are grossly intact. ASSESSMENT AND PLAN 1. Acute inferior wall myocardial infarction status post heart catheterization with Dr. Foss finding intermediate to severe disease in the proximal left circumflex artery, not stented. Continue aspirin 81 mg daily, Lipitor 80 mg daily, Norvasc 5 mg daily, Plavix 75 mg daily. 2. Hypertensive emergency. Patient started on Norvasc 5 mg daily, continue hydralazine 50 mg qid, lasix 20 mg IVP every 12 hours. Lopressor resumed at 25 mg twice daily. 3. Bradycardia. Metoprolol discontinued. 4. Hypothyroidism. Continue levothyroxine 88 g Tuesday through Tuesday and 100 g on Tuesday and Tuesday 5. Chronic kidney disease stage 3. Avoid nephrotoxic agents. 6. Tobacco use and dependence. Nicotine patch. 7. GI prophylaxis. Protonic 40 mg po daily. DISCHARGE PLAN Home over the weekend. Impression and plan of care have been directed as dictated by the signing physician. Micki Pinedo nurse practitioner acting as scribe for signing physician. Objective - Vital Signs Vital signs: Vital Signs Temp 98.2 F 11/27/20 20:00 Pulse 76 11/28/20 04:00 Resp 17 11/28/20 04:00 BP 122/81 11/28/20 04:00 Pulse Ox 94 L 11/28/20 06:00 Intake & Output 11/27/20 11/28/20 11/28/20 18:59 06:59 18:59 Intake Total 200 0 Output Total 785 400 Balance -585 -400 0 Weight 94.1 kg Intake: IV 100 Sodium Chloride 0.9% 1, 100 000 ml @ 50 mls/hr IV . Q20H POLO Rx#:[id number] Oral 100 0 Output: Urine 785 400 Other: Voiding Method Toilet Toilet - Labs CBC & Chem 7: 11/28/20 08:40 11/27/20 04:28
[2020-11-28] MEDS: CALCIUM CARBONATE 500 MG CHEWABLE PO PRN (18:40)
[2020-11-28] MEDS ORDERED: ALPRAZolam 0.25 MG TAB PO STA (20:09)
[2020-11-28] MEDS: bisacodyL 5 MG TABLET.DR PO PRN (20:32)
[2020-11-28] MEDS: CHOLECALCIFEROL 25 MCG (1000 IU) TABLET PO SCH (20:34)
[2020-11-29] MEDS: PANTOPRAZOLE 40 MG TABLET PO SCH (05:43)
[2020-11-29] MEDS: LEVOTHYROXINE 88 MCG TAB PO SCH (05:46)
[2020-11-29] MEDS ORDERED: LEVOTHYROXINE 100 MCG TAB PO SCH (06:30)
[2020-11-29] MEDS: ATORVASTATIN 80 MG TAB PO SCH (08:25)
[2020-11-29] MEDS: CLOPIDOGREL 75 MG TAB PO SCH (08:25)
[2020-11-29] MEDS: FUROSEMIDE 10 MG/ML 2 ML VIAL IV SCH (08:25)
[2020-11-29] MEDS: hydrALAZINE HCL 50 MG TAB PO SCH ×4 (08:25→22:38)
[2020-11-29] MEDS: ASPIRIN 81 MG PO SCH (08:25)
[2020-11-29] MEDS: amLODIPine 5 MG TAB PO SCH (08:25)
[2020-11-29] MEDS: NON FORMULARY DRUG (Fish Oil/Dha/Epa [Fish Oil 1,200 Mg Fish Oil] 1 EACH Capsule) PO SCH (08:27)
[2020-11-29] MEDS: METOPROLOL TARTRATE 25 MG TAB PO SCH ×2 (09:35→20:27)
[2020-11-29 11:24] LABS: Calcium 9.2 mg/dL (8.4-10.2); Potassium 3.8 mmol/L (3.5-5.1)
[2020-11-29] MEDS: FOLATE PO SCH (12:57)
[2020-11-29] MEDS: B6 PO SCH (12:57)
[2020-11-29] MEDS: VITAMIN B12 PO SCH (12:57)
--- NOTE | 2020-11-29 13:52 | CONS ---
LANI Devine is a 70-year-old lady who is admitted to hospital with acute inferior wall myocardial infarction and was initially evaluated by Dr. Foss and underwent emergent cardiac catheterization. Unfortunately, her right coronary artery was not visualized either during the coronary angiogram or with the aortogram and she completed her infarct. She has done fairly well. Does not have symptoms of chest pain or difficulty in breathing. Did not have any episodes of ventricular tachycardia. She is ambulating in the room without any issues. Her initial echocardiogram showed normal LV function, no wall motion abnormality. I repeated an echo on her yesterday. I do not have the report yet. An EKG done yesterday shows persistent ST-segment elevation. I will repeat an EKG on her today. She is currently on aspirin, Lipitor 80 mg daily, Plavix 75 mg daily, Apresoline 50 mg 3 times a day, Lopressor 25 b.i.d. and amlodipine 5 mg daily. LABS: Her labs show that the BUN is 36, creatinine is 3. Potassium is 3.8. Creatinine has actually jumped from 1.36 to 3. Hemoglobin is normal at 15.8. I had a long conversation with the patient and her about the treatment options including making another effort at trying to locate the right coronary artery, performing angioplasty of the circumflex coronary artery or performing a stress test on her prior to discharge to optimally risk stratify her. Understanding all the issues, the patient wishes to go home and consider further evaluation in the outpatient setting with Dr. Foss. They understand the risk of cardiac arrhythmia and mechanical complications. EXAM TODAY: Heart rate is 90 beats per minute, blood pressure is 116/71, respiratory rate is 16, O2 saturation is 92%. There is no jugular venous distention. Chest exam reveals good air entry bilaterally. I do not hear any crackles or rhonchi. Heart exam reveals first and second heart sounds. I do not hear any murmur of mitral regurgitation. Abdomen is soft. Exam of extremities did not reveal any edema. Peripheral pulses are felt. ASSESSMENT: 1. Acute inferior wall myocardial infarction, inability to perform angioplasty due to inability to visualize the right coronary artery. 2. Chronic renal insufficiency with acute worsening, probably due to acute tubular necrosis. PLAN: I will continue with the current medical therapy. Given the sudden change in her renal functions, we are not going to discharge her home today. I will repeat an EKG on her today. MMODL / IJN: [id number] /
--- NOTE | 2020-11-29 14:50 | P.NPCON ---
History of Present Illness - Reason for Consult Consult date: 11/29/20 acute renal failure - Chief Complaint Acute kidney injury - History of Present Illness Admitted to the hospital on 11/26/2020 secondary to chest pain. Denies any previous kidney problems/nephrology care. She does have history of renal stones. Admitted with chest pain had emergent cardiac cath secondary to STEMI, baseline creatinine 1.3 on admission got worse to 3.09 today.She was on Lasix 20 mg IV twice a day, no NSAID use. Denies any herbal supplements.No history of diabetes, history of hypertension on hydralazine at home. Denies any nausea vomiting diarrhea. Denies incomplete emptying of the bladder. Review of Systems Constitutional: Reports as per HPI Past Medical History Past Medical History: Hypertension, Thyroid Disorder Additional Past Medical History / Comment(s): FRACTURE LEFT ARM History of Any Multi-Drug Resistant Organisms: None Reported Past Surgical History: Cholecystectomy, Hysterectomy Additional Past Surgical History / Comment(s): BILATERAL OOPHORECTOMY Past Anesthesia/Blood Transfusion Reactions: No Reported Reaction Smoking Status: Current every day smoker - Past Family History Mother Daughter(s) Family Medical History: Cancer Medications and Allergies Home Medications Medication Instructions Recorded Confirmed Type Levothyroxine Sodium [Synthroid] 88 mcg PO SUTUTHSA 02/24/15 11/26/20 History Aspirin 81 mg PO DAILY 02/26/15 11/26/20 History hydrALAZINE HCL [Apresoline] 50 mg PO TID 02/26/15 11/26/20 History Cholecalciferol (Vitamin D3) 125 mcg PO DAILY 11/26/20 11/26/20 History [Vitamin D3 (5000 Iu)] Fish Oil/Dha/Epa [Fish Oil 1,200 1 cap PO DAILY 11/26/20 11/26/20 History mg Fish Oil] Levothyroxine Sodium [Synthroid] 100 mcg PO MOWEFR 11/26/20 11/26/20 History Vitamin B12/Folate & B6 Sl 1 tab PO DAILY 11/26/20 11/26/20 History Atorvastatin [Lipitor] 80 mg PO DAILY #30 tab 11/29/20 Rx Clopidogrel [Plavix] 75 mg PO DAILY #30 tab 11/29/20 Rx Furosemide [Lasix] 20 mg PO DAILY #30 tab 11/29/20 Rx Metoprolol Tartrate [Lopressor] 25 mg PO BID #60 tab 11/29/20 Rx Nitroglycerin Sl Tabs [Nitrostat] 0.4 mg SUBLINGUAL Q5M PRN #25 tab 11/29/20 Rx Pantoprazole [Protonix] 40 mg PO AC-BRKFST #30 tablet. 11/29/20 Rx amLODIPine [Norvasc] 5 mg PO DAILY #30 tab 11/29/20 Rx bisacodyL [Dulcolax] 5 mg PO BID PRN tablet. 11/29/20 Rx Allergies Allergy/AdvReac Type Severity Reaction Status Date / Time NITRILE GLOVES Allergy Rash/Hives-SYSTEMIC Uncoded 11/26/20 07:11 REACTION Physical Exam Vitals: Vital Signs Temp Pulse Pulse Resp BP BP Pulse Ox 11/29/20 12:00 73 16 119/63 93 L 11/29/20 08:00 98.3 F 92 16 116/71 92 L 11/29/20 03:55 87 16 118/78 94 L 11/28/20 23:24 73 16 121/76 95 11/28/20 20:00 97.4 F L 69 18 128/73 93 L 11/28/20 16:04 80 16 11/28/20 16:00 97.5 F L 80 18 127/78 Intake and Output 11/28/20 11/29/20 11/29/20 22:59 06:59 14:59 Intake Total 480 400 Output Total 100 400 Balance 380 -400 400 Intake: Oral 480 400 Output: Urine 100 400 Other: Voiding Method Toilet Toilet Toilet Weight 90.9 kg No acute distress S1-S2 heard Lungs clear Abdomen soft No edema Results - Lab Results Most recent lab results Calcium 9.2 mg/dL (8.4-10.2) 11/29/20 10:41 Magnesium 1.9 mg/dL (1.6-2.3) 11/26/20 07:02 11/28/20 08:40 11/29/20 10:41 Assessment and Plan Assessment: #1 nonoliguric acute kidney injury secondary to ELVIS. #2 chronic kidney disease stage III A secondary to nephrosclerosis with a base line creatinine of 1.3 MG per DL. #3 hypertension with chronic kidney disease #4 ST elevation MO status post cardiac cath #5 metabolic alkalosis with hyponatremia secondary to diuretic use. Plan: #1 stop Lasix #2 add IV fluids at 75 ML's an hour. #3 check urine analysis, urine electrolytes, bladder scan and strict ins and outs. #4 repeat labs in the morning. No acute indication for [employer] at this time.
--- NOTE | 2020-11-29 15:32 | US ---
EXAMINATION TYPE: US kidneys/renal and bladder DATE OF EXAM: 11/29/2020 COMPARISON: NONE CLINICAL HISTORY: frances. FRANCES EXAM MEASUREMENTS: Right Kidney: 8.8 x 3.5 x 4.0 cm Left Kidney: 11.9 x 5.8 x 5.9 cm Right Kidney: stone mid = 0.9cm. hypoechoic area with calcified border laterally = 3.6 x 3.9 x 4.0cm Left Kidney: mild to moderate hydronephrosis Bladder: not fully distended Bilateral Jets seen: no IMPRESSION: There is no evidence of bladder mass. There is shadowing 4 cm area on the lateral right kidney that c ould be complex cyst containing calcium. There is 9 mm calculus in the interpolar right kidney. Left-sided hydronephrosis. no significant renal atrophy.
[2020-11-29] MEDS: SODIUM CHLORIDE 0.9% 1,000 ML IV SCH (16:10)
[2020-11-29] MEDS: CALCIUM CARBONATE 500 MG CHEWABLE PO PRN (16:11)
[2020-11-29 17:29] LABS: Amorphous Sediment,Urine Rare /hpf; Appearance,Urine Cloudy (Clear); Bacteria,Urine Rare /hpf; Bilirubin,Urine Negative (Negative); Blood,Urine Negative (Negative); Color,Urine Light Yellow; Glucose,Urine (UA) Negative (Negative); Ketones,Urine Negative (Negative); Leukocyte Esterase,Urine Moderate (Negative); Mucus,Urine Rare /hpf; Nitrite,Urine Negative (Negative); Protein,Urine Trace (Negative); RBC,Urine 22 /hpf (0-5); Squamous Epithelial Cell,Urine 4 /hpf (0-4); Urobilinogen,Urine <2.0 mg/dL (<2.0); WBC,Urine 24 /hpf (0-5)
[2020-11-29 17:46] LABS: Creatinine,Urine Random 70.9 mg/dL
[2020-11-29] MEDS: bisacodyL 5 MG TABLET.DR PO PRN (20:27)
[2020-11-29] MEDS: CHOLECALCIFEROL 25 MCG (1000 IU) TABLET PO SCH (20:27)
--- NOTE | 2020-11-29 21:52 | P.PN ---
Subjective Progress Note Date: 11/29/20 HISTORY OF PRESENT ILLNESS This is a 70-year-old female patient of Dr. Moore with past medical history of hypertension, hypothyroidism, active tobacco use. Patient was last seen in the office 2 days ago at that time had lab work done and did not have any complaints of chest pain. Patient states she had sudden onset of chest pain at 550 this morning and thought it was heartburn-type and tightening in her chest. She also had sweats and shortness of breath. She came into [facility] emergency center for evaluation and EKG by EMS was concerning for ST elevated myocardial infarction and underwent an emergent heart catheterization with Dr. 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 Aortic root angiogram revealed fairly calcified right coronary artery which probably is occluded. Potentially down the line she to undergo a CTA for further clarification. she did not undergo angioplasty on the left circumflex coronary artery because the patient was chest pain-free throughout the procedure. blood pressure was elevated throughout procedure and Norvasc was added and recommended discontinuing the metoprolol due to bradycardia. Patient is seen today on the extended care unit. 11/27: Echocardiogram reveals EF of 60-65% with moderate concentric left ventricle hypertrophy, mild tricuspid regurgitation, suboptimal study. EKG was sinus bradycardia and poor R-wave progression. Cardiology has added Plavix to her regime and has resumed Lopressor 25 mg twice daily. Plan is to transfer out of ICU today. Patient has been afebrile, heart rate 66, blood pressure 145/71, pulse ox 94% on room air. monitor and storage bin tender is a sinus rhythm. Patient is stating that she has a little tightness in her chest. Yesterday she had pain in her left arm and face but none today. She is feeling a little short of breath. Repeat blood work reveals WBC 13.8, hemoglobin 15.8, platelet count 197. Electrolytes are all normal except for CO2 of 31, BUN 22 and creatinine 1.36 patient's baseline. Blood sugar 134. Triglycerides 115, cholesterol 176, LDL 93, HDL 60. 11/28: Dr. Alvarado reevaluated patient with plan for continued medical management and monitor over the next 1-2 nights with concern for complication. Patient states she's had some nausea. No chest pain. No lightheadedness or dizziness. She has been afebrile, heart rate 76, blood pressure 150/85, pulse ox 94% on room air. Basic chemistry panel ordered for tomorrow. Limited echocardiogram has been done today and report is pending. 12/29: Patient was supposed to be discharged home today surprisingly creatinine is up to 3.09 with BUN of 36 will be seen nephrology and most likely be going for Route renal ultrasound along with hydration repeat BUN/creatinine tomorrow before deciding is any patient's home. REVIEW OF SYSTEMS At the time of evaluation: Constitutional: No fever, no chills, no night sweats. No weight change. No weakness, fatigue or lethargy. No daytime sleepiness. EENT: No headache. No blurred vision or double vision, no loss of vision. No loss of Hearing, no ringing in the ears, no dizziness. No nasal drainage or congestion. No epistaxis. No sore throat. Lungs: Reports mild shortness of breath, cough, no sputum production. No wheezing. Cardiovascular: Reports intermittent chest pain, no lower extremity edema. No palpitations. No paroxysmal nocturnal dyspnea. No orthopnea. No lightheadedness or dizziness. No syncopal episodes. Abdominal: No abdominal pain. No nausea, vomiting. No diarrhea. No constipation. No bloody or tarry stools.. No loss of appetite. Genitourinary: No dysuria, increased frequency, urgency. No urinary retention. Musculoskeletal: No myalgias. No muscle weakness, no gait dysfunction, no frequent falls. No back pain. No neck pain. Integumentary: No wounds, no lesions. No rash or pruritus. No unusual bruising. No change in hair or nails. Neurologic: No aphasia. No facial droop. No change in mentation. No head injury. No headache. No paralysis. No paresthesia. Psychiatric: No depression. No anxiety. No mood swings. Endocrine: No abnormal blood sugars. No weight change. No excessive sweating or thirst. No cold intolerance. PHYSICAL EXAMINATION Gen: This is a 70-year-old obese female. She is resting on a stretcher and appears to be in no acute distress. HEENT: Head is atraumatic, normocephalic. Pupils equal, round. Sclerae is anicteric. NECK: Supple. No JVD. No lymphadenopathy. No thyromegaly. LUNGS: Clear to auscultation. No wheezes or rhonchi. No intercostal retractions. HEART: Regular rate and rhythm. No murmur. ABDOMEN: Soft. Bowel sounds are present. No masses. No tenderness. EXTREMITIES: No pedal edema. No calf tenderness. NEUROLOGICAL: Patient is awake, alert and oriented x3. Cranial nerves 2 through 12 are grossly intact. ASSESSMENT AND PLAN 1. Acute inferior wall myocardial infarction status post heart catheterization with Dr. Foss finding intermediate to severe disease in the proximal left circumflex artery, not stented. Continue aspirin 81 mg daily, Lipitor 80 mg daily, Norvasc 5 mg daily, Plavix 75 mg daily. Did not have any intervention on medical management only. 2 acute kidney injury: Most likely from the effect of the iodine along with hypoperfusion continue hydration and keep patient off any nephrotoxic agent at this point and patient be seen nephrology today along with renal ultrasound be done to exclude any obstructive uropathy. 3. Hypertensive emergency. Patient started on Norvasc 5 mg daily, continue hydralazine 50 mg qid, lasix 20 mg IVP every 12 hours. Lopressor resumed at 25 mg twice daily. 4. Hypothyroidism. Continue levothyroxine 88 g Tuesday through Tuesday and 100 g on Tuesday and Tuesday 5. Chronic kidney disease stage 3. Avoid nephrotoxic agents. Worsening kidney function require little bit more attention at this point. 6. Bradycardia. Metoprolol discontinued. 7. GI prophylaxis. Protonic 40 mg po daily. DISCHARGE PLAN Hopefully home if kidney function is better by tomorrow. Objective - Vital Signs Vital signs: Vital Signs Temp 97.4 F L 11/28/20 20:00 Pulse 87 11/29/20 03:55 Resp 16 11/29/20 03:55 BP 118/78 11/29/20 03:55 Pulse Ox 94 L 11/29/20 03:55 Intake & Output 11/28/20 11/28/20 11/29/20 06:59 18:59 06:59 Intake Total 720 Output Total 400 500 Balance -400 720 -500 Weight 94.1 kg Intake: Oral 720 Output: Urine 400 500 Other: Voiding Method Toilet Toilet Toilet # Voids 1 - Labs CBC & Chem 7: 11/28/20 08:40 11/29/20 10:41
[2020-11-30] MEDS: SODIUM CHLORIDE 0.9% 1,000 ML IV SCH ×2 (04:02→16:04)
[2020-11-30] MEDS: LEVOTHYROXINE 88 MCG TAB PO SCH (06:22)
[2020-11-30] MEDS: PANTOPRAZOLE 40 MG TABLET PO SCH (06:22)
[2020-11-30 07:40] LABS: Calcium 8.7 mg/dL (8.4-10.2); Potassium 3.6 mmol/L (3.5-5.1)
[2020-11-30] MEDS: CLOPIDOGREL 75 MG TAB PO SCH (07:41)
[2020-11-30] MEDS: VITAMIN B12 PO SCH (07:41)
[2020-11-30] MEDS: ASPIRIN 81 MG PO SCH (07:41)
[2020-11-30] MEDS: NON FORMULARY DRUG (Fish Oil/Dha/Epa [Fish Oil 1,200 Mg Fish Oil] 1 EACH Capsule) PO SCH (07:41)
[2020-11-30] MEDS: FOLATE PO SCH (07:41)
[2020-11-30] MEDS: ATORVASTATIN 80 MG TAB PO SCH (07:41)
[2020-11-30] MEDS: amLODIPine 5 MG TAB PO SCH (07:41)
[2020-11-30] MEDS: B6 PO SCH (07:41)
[2020-11-30] MEDS: METOPROLOL TARTRATE 25 MG TAB PO SCH ×2 (07:41→21:23)
[2020-11-30] MEDS: hydrALAZINE HCL 50 MG TAB PO SCH ×4 (07:41→21:23)
--- NOTE | 2020-11-30 09:54 | P.GSCN ---
History of Present Illness Consult date: 11/30/20 History of present illness: 70-year-old female recently admitted to the hospital with chest pain. She is found to have a non-STEMI myocardial infarction. An emergency cardiac catheter. Her creatinine went from 1.3-3.0. Nephrology consult. An ultrasound was obtained identifying left-sided hydronephrosis. The patient has a known history of stones. She has had previous shockwave lithotripsy or gone. She may have passed a stone within the last couple months. She has not seen a urologist since she moved to [place] in 2019. Her stones were calcium. She has not had any fever. Her urinalysis showed 22 reds 24 whites and 4 epithelial cells. Review of Systems All systems: negative - Constitutional Denies fever, Denies weight loss - EENT Eyes: denies blurred vision Ears, nose, mouth and throat: Denies dysphagia - Cardiovascular Denies chest pain, Denies shortness of breath - Respiratory Denies cough, Denies 7 - Gastrointestinal Reports as per HPI - Genitourinary Genitourinary: Denies dysuria, Denies hematuria - Integumentary Denies rash, Denies unusual bruising - Neurological Denies headaches, Denies syncope - Hematologic/Lymphatic Denies easy bleeding, Denies easy bruising Past Medical History Past Medical History: Hypertension, Thyroid Disorder Additional Past Medical History / Comment(s): FRACTURE LEFT ARM, kidney stones History of Any Multi-Drug Resistant Organisms: None Reported Past Surgical History: Cholecystectomy, Hysterectomy Additional Past Surgical History / Comment(s): BILATERAL OOPHORECTOMY, extracorporeal shockwave lithotripsy Past Anesthesia/Blood Transfusion Reactions: No Reported Reaction Smoking Status: Current every day smoker - Past Family History Mother Daughter(s) Family Medical History: Cancer Medications and Allergies Home Medications Medication Instructions Recorded Confirmed Type Levothyroxine Sodium [Synthroid] 88 mcg PO SUTUTHSA 02/24/15 11/26/20 History Aspirin 81 mg PO DAILY 02/26/15 11/26/20 History hydrALAZINE HCL [Apresoline] 50 mg PO TID 02/26/15 11/26/20 History Cholecalciferol (Vitamin D3) 125 mcg PO DAILY 11/26/20 11/26/20 History [Vitamin D3 (5000 Iu)] Fish Oil/Dha/Epa [Fish Oil 1,200 1 cap PO DAILY 11/26/20 11/26/20 History mg Fish Oil] Levothyroxine Sodium [Synthroid] 100 mcg PO MOWEFR 11/26/20 11/26/20 History Vitamin B12/Folate & B6 Sl 1 tab PO DAILY 11/26/20 11/26/20 History Atorvastatin [Lipitor] 80 mg PO DAILY #30 tab 11/29/20 Rx Clopidogrel [Plavix] 75 mg PO DAILY #30 tab 11/29/20 Rx Furosemide [Lasix] 20 mg PO DAILY #30 tab 11/29/20 Rx Metoprolol Tartrate [Lopressor] 25 mg PO BID #60 tab 11/29/20 Rx Nitroglycerin Sl Tabs [Nitrostat] 0.4 mg SUBLINGUAL Q5M PRN #25 tab 11/29/20 Rx Pantoprazole [Protonix] 40 mg PO AC-BRKFST #30 tablet. 11/29/20 Rx amLODIPine [Norvasc] 5 mg PO DAILY #30 tab 11/29/20 Rx bisacodyL [Dulcolax] 5 mg PO BID PRN tablet. 11/29/20 Rx Allergies Allergy/AdvReac Type Severity Reaction Status Date / Time NITRILE GLOVES Allergy Rash/Hives-SYSTEMIC Uncoded 11/26/20 07:11 REACTION Surgical - Exam Vital Signs Temp Pulse Resp BP Pulse Ox 98.3 F 52 L 18 170/146 95 11/26/20 06:46 11/26/20 06:46 11/26/20 06:46 11/26/20 06:46 11/26/20 06:46 - General well developed, well nourished, no distress - Eyes PERRL - ENT no hearing loss - Neck no masses - Respiratory normal expansion, normal respiratory effort - Cardiovascular Rhythm: regular - Abdomen Mild tenderness left flank - Integumentary no rash, no growths - Neurologic normal coordination, normal sensation - Musculoskeletal normal posture - Psychiatric oriented to time, oriented to person, oriented to place, speech is normal, memory intact Results - Labs 11/28/20 08:40 11/30/20 07:00 Abnormal Lab Results - Last 24 Hours (Table) 11/29/20 11/29/20 11/30/20 Range/Units 10:41 16:19 07:00 Sodium 132 L 133 L (137-145) mmol/L Chloride 93 L 94 L (98-107) mmol/L Carbon Dioxide 32 H 33 H (22-30) mmol/L BUN 36 H 40 H (7-17) mg/dL Creatinine 3.09 H 3.73 H (0.52-1.04) mg/dL Glucose 123 H 114 H (74-99) mg/dL Urine Appearance Cloudy H (Clear) Urine Protein Trace H (Negative) Ur Leukocyte Esterase Moderate H (Negative) Urine RBC 22 H (0-5) /hpf Urine WBC 24 H (0-5) /hpf Amorphous Sediment Rare H (None) /hpf Urine Bacteria Rare H (None) /hpf Urine Mucus Rare H (None) /hpf Diabetes panel 11/29/20 11/30/20 Range/Units 10:41 07:00 Sodium 132 L 133 L (137-145) mmol/L Potassium 3.8 3.6 (3.5-5.1) mmol/L Chloride 93 L 94 L (98-107) mmol/L Carbon Dioxide 32 H 33 H (22-30) mmol/L BUN 36 H 40 H (7-17) mg/dL Creatinine 3.09 H 3.73 H (0.52-1.04) mg/dL Glucose 123 H 114 H (74-99) mg/dL Calcium 9.2 8.7 (8.4-10.2) mg/dL Calcium panel 11/29/20 11/30/20 Range/Units 10:41 07:00 Calcium 9.2 8.7 (8.4-10.2) mg/dL Pituitary panel 11/29/20 11/30/20 Range/Units 10:41 07:00 Sodium 132 L 133 L (137-145) mmol/L Potassium 3.8 3.6 (3.5-5.1) mmol/L Chloride 93 L 94 L (98-107) mmol/L Carbon Dioxide 32 H 33 H (22-30) mmol/L BUN 36 H 40 H (7-17) mg/dL Creatinine 3.09 H 3.73 H (0.52-1.04) mg/dL Glucose 123 H 114 H (74-99) mg/dL Calcium 9.2 8.7 (8.4-10.2) mg/dL Adrenal panel 11/29/20 11/30/20 Range/Units 10:41 07:00 Sodium 132 L 133 L (137-145) mmol/L Potassium 3.8 3.6 (3.5-5.1) mmol/L Chloride 93 L 94 L (98-107) mmol/L Carbon Dioxide 32 H 33 H (22-30) mmol/L BUN 36 H 40 H (7-17) mg/dL Creatinine 3.09 H 3.73 H (0.52-1.04) mg/dL Glucose 123 H 114 H (74-99) mg/dL Calcium 9.2 8.7 (8.4-10.2) mg/dL - Imaging US - kidney/bladder: report reviewed, image reviewed Assessment and Plan Assessment: Impression: Non-STEMI PR. History of kidney stones with left-sided hyd ronephrosis on ultrasound. Elevation of creatinine to 3 from 1.3. Probable kidney stone and left ureter. Recommendations I'll obtain a computed tomography scan without contrast to see if indeed we can find the stone in the ureter which will probably be present. Depending on location as to treatment options a. We will have to discuss this with cardiology with regards to potential anesthetic. Time with Patient: Greater than 30
--- NOTE | 2020-11-30 10:31 | P.PN ---
Subjective Progress Note Date: 11/30/20 HISTORY OF PRESENT ILLNESS This is a 70-year-old female patient of Dr. Moore with past medical history of hypertension, hypothyroidism, active tobacco use. Patient was last seen in the office 2 days ago at that time had lab work done and did not have any complaints of chest pain. Patient states she had sudden onset of chest pain at 550 this morning and thought it was heartburn-type and tightening in her chest. She also had sweats and shortness of breath. She came into [facility] emergency center for evaluation and EKG by EMS was concerning for ST elevated myocardial infarction and underwent an emergent heart catheterization with Dr. 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 Aortic root angiogram revealed fairly calcified right coronary artery which probably is occluded. Potentially down the line she to undergo a CTA for further clarification. she did not undergo angioplasty on the left circumflex coronary artery because the patient was chest pain-free throughout the procedure. blood pressure was elevated throughout procedure and Norvasc was added and recommended discontinuing the metoprolol due to bradycardia. Patient is seen today on the extended care unit. 11/27: Echocardiogram reveals EF of 60-65% with moderate concentric left ventricle hypertrophy, mild tricuspid regurgitation, suboptimal study. EKG was sinus bradycardia and poor R-wave progression. Cardiology has added Plavix to her regime and has resumed Lopressor 25 mg twice daily. Plan is to transfer out of ICU today. Patient has been afebrile, heart rate 66, blood pressure 145/71, pulse ox 94% on room air. site monitor is a sinus rhythm. Patient is stating that she has a little tightness in her chest. Yesterday she had pain in her left arm and face but none today. She is feeling a little short of breath. Repeat blood work reveals WBC 13.8, hemoglobin 15.8, platelet count 197. Electrolytes are all normal except for CO2 of 31, BUN 22 and creatinine 1.36 patient's baseline. Blood sugar 134. Triglycerides 115, cholesterol 176, LDL 93, HDL 60. 11/28: Dr. Alvarado reevaluated patient with plan for continued medical management and monitor over the next 1-2 nights with concern for complication. Patient states she's had some nausea. No chest pain. No lightheadedness or dizziness. She has been afebrile, heart rate 76, blood pressure 150/85, pulse ox 94% on room air. Basic chemistry panel ordered for tomorrow. Limited echocardiogram has been done today and report is pending. 11/29: Patient was supposed to be discharged home today surprisingly creatinine is up to 3.09 with BUN of 36 will be seen nephrology and most likely be going for Route renal ultrasound along with hydration repeat BUN/creatinine tomorrow before deciding is any patient's home. 11/30: Patient is doing much better today clinically except kidney function much worse ultrasound showed obstructive uropathy of the left side with atrophy of the right side sinus kidney stone, we will consult urology, still seen nephrology no need for hemodialysis at this point this is probably an underlying chronic kidney disease and affect of the iodine dye. REVIEW OF SYSTEMS At the time of evaluation: Constitutional: No fever, no chills, no night sweats. No weight change. No weakness, fatigue or lethargy. No daytime sleepiness. EENT: No headache. No blurred vision or double vision, no loss of vision. No loss of Hearing, no ringing in the ears, no dizziness. No nasal drainage or congestion. No epistaxis. No sore throat. Lungs: Reports mild shortness of breath, cough, no sputum production. No wheezing. Cardiovascular: Reports intermittent chest pain, no lower extremity edema. No palpitations. No paroxysmal nocturnal dyspnea. No orthopnea. No lightheadedness or dizziness. No syncopal episodes. Abdominal: No abdominal pain. No nausea, vomiting. No diarrhea. No constipation. No bloody or tarry stools.. No loss of appetite. Genitourinary: No dysuria, increased frequency, urgency. No urinary retention. Musculoskeletal: No myalgias. No muscle weakness, no gait dysfunction, no frequent falls. No back pain. No neck pain. Integumentary: No wounds, no lesions. No rash or pruritus. No unusual bruising. No change in hair or nails. Neurologic: No aphasia. No facial droop. No change in mentation. No head injury. No headache. No paralysis. No paresthesia. Psychiatric: No depression. No anxiety. No mood swings. Endocrine: No abnormal blood sugars. No weight change. No excessive sweating or thirst. No cold intolerance. PHYSICAL EXAMINATION Gen: This is a 70-year-old obese female. She is resting on a stretcher and appears to be in no acute distress. HEENT: Head is atraumatic, normocephalic. Pupils equal, round. Sclerae is anicteric. NECK: Supple. No JVD. No lymphadenopathy. No thyromegaly. LUNGS: Clear to auscultation. No wheezes or rhonchi. No intercostal retr actions. HEART: Regular rate and rhythm. No murmur. ABDOMEN: Soft. Bowel sounds are present. No masses. No tenderness. EXTREMITIES: No pedal edema. No calf tenderness. NEUROLOGICAL: Patient is awake, alert and oriented x3. Cranial nerves 2 through 12 are grossly intact. ASSESSMENT AND PLAN 1. Acute inferior wall myocardial infarction status post heart catheterization with Dr. Foss finding intermediate to severe disease in the proximal left circumflex artery, not stented. Continue aspirin 81 mg daily, Lipitor 80 mg daily, Norvasc 5 mg daily, Plavix 75 mg daily. Did not have any intervention on medical management only. 2 acute kidney injury: Most likely from the effect of the iodine along with hypoperfusion continue hydration and keep patient off any nephrotoxic agent at this point and patient be seen nephrology today along with renal ultrasound be done to exclude any obstructive uropathy. With obstructive uropathy patient be seen urology for possible need stent of the left side. 3. Hypertensive emergency. Patient started on Norvasc 5 mg daily, continue hydralazine 50 mg qid, lasix 20 mg IVP every 12 hours. Lopressor resumed at 25 mg twice daily. 4. Hypothyroidism. Continue levothyroxine 88 g Tuesday through Tuesday and 100 g on Tuesday and Tuesday 5. Chronic kidney disease stage 3. Avoid nephrotoxic agents. Worsening kidney function require little bit more attention at this point. 6. Bradycardia. Metoprolol discontinued. 7. GI prophylaxis. Protonic 40 mg po daily. DISCHARGE PLAN We will delay discharged her kidney function is better. Objective - Vital Signs Vital signs: Vital Signs Temp 98.1 F 11/30/20 07:38 Pulse 87 11/30/20 07:38 Resp 16 11/30/20 07:38 BP 128/75 11/30/20 07:38 Pulse Ox 96 11/30/20 07:38 Intake & Output 11/29/20 11/30/20 11/30/20 18:59 06:59 18:59 Intake Total 518 0 Output Total 800 Balance 518 -800 Weight 91.9 kg Intake: Oral 518 0 Output: Urine 800 Other: Voiding Method Toilet Toilet # Voids 2 - Labs CBC & Chem 7: 11/28/20 08:40 11/30/20 07:00 Labs: Abnormal Lab Results - Last 24 Hours (Table) 11/29/20 11/29/20 11/30/20 Range/Units 10:41 16:19 07:00 Sodium 132 L 133 L (137-145) mmol/L Chloride 93 L 94 L (98-107) mmol/L Carbon Dioxide 32 H 33 H (22-30) mmol/L BUN 36 H 40 H (7-17) mg/dL Creatinine 3.09 H 3.73 H (0.52-1.04) mg/dL Glucose 123 H 114 H (74-99) mg/dL Urine Appearance Cloudy H (Clear) Urine Protein Trace H (Negative) Ur Leukocyte Esterase Moderate H (Negative) Urine RBC 22 H (0-5) /hpf Urine WBC 24 H (0-5) /hpf Amorphous Sediment Rare H (None) /hpf Urine Bacteria Rare H (None) /hpf Urine Mucus Rare H (None) /hpf
--- NOTE | 2020-11-30 12:38 | P.PN ---
Subjective Progress Note Date: 11/30/20 HISTORY OF PRESENT ILLNESS: Patient examined this morning at the bedside. Patient denies chest pain or pressure. She denies shortness of breath. She has been evaluated by nephrology and started on IV fluids. Lasix has been discontinued. Creatinine increased from 3.0-3.73. PHYSICAL EXAM: VITAL SIGNS: Reviewed. GENERAL: Well-developed in no acute distress. NECK: Supple. No JVD or thyromegaly LUNGS: Respirations even and unlabored. Lungs essentially clear to auscultation bilaterally. HEART: Regular rate and rhythm. S1 and S2 heard. EXTREMITIES: Normal range of motion. No clubbing or cyanosis. Peripheral pulses intact. No lower extremity edema ASSESSMENT: Acute inferior wall STEMI, unable to perform angioplasty due to inability to visualize right coronary artery Acute on chronic kidney disease Hypertension Hypothyroidism PLAN: Continue current cardiac medications Continue telemetry monitoring Nephrology following Continue to monitor kidney function Further recommendations pending patient's course Nurse practitioner note has been reviewed by physician. Signing provider agrees with the documented findings, assessment, and plan of care. Objective - Vital Signs Vital signs: Vital Signs Temp 98.1 F 11/30/20 11:20 Pulse 65 11/30/20 11:20 Resp 16 11/30/20 11:20 BP 134/61 11/30/20 11:20 Pulse Ox 93 L 11/30/20 11:20 Intake & Output 11/29/20 11/30/20 11/30/20 18:59 06:59 18:59 Intake Total 518 0 840 Output Total 800 Balance 518 -800 840 Weight 91.9 kg Intake: Intake, IV Titration 600 Amount Sodium Chloride 0.9% 1, 600 000 ml @ 75 mls/hr IV . [id number] [facility] Rx#:[id number] Oral 518 0 240 Output: Urine 800 Other: Voiding Method Toilet Toilet # Voids 2 - Labs CBC & Chem 7: 11/28/20 08:40 11/30/20 07:00 Labs: Abnormal Lab Results - Last 24 Hours (Table) 11/29/20 11/30/20 Range/Units 16:19 07:00 Sodium 133 L (137-145) mmol/L Chloride 94 L (98-107) mmol/L Carbon Dioxide 33 H (22-30) mmol/L BUN 40 H (7-17) mg/dL Creatinine 3.73 H (0.52-1.04) mg/dL Glucose 114 H (74-99) mg/dL Urine Appearance Cloudy H (Clear) Urine Protein Trace H (Negative) Ur Leukocyte Esterase Moderate H (Negative) Urine RBC 22 H (0-5) /hpf Urine WBC 24 H (0-5) /hpf Amorphous Sediment Rare H (None) /hpf Urine Bacteria Rare H (None) /hpf Urine Mucus Rare H (None) /hpf
--- NOTE | 2020-11-30 13:17 | P.PN ---
Subjective Progress Note Date: 11/30/20 Follow-up for acute kidney injury. Denies any nausea vomiting diarrhea. Urine output of 800 ML's in the last 24 hours. Objective - Vital Signs Vital signs: Vital Signs Temp 98.1 F 11/30/20 11:20 Pulse 65 11/30/20 11:20 Resp 16 11/30/20 11:20 BP 134/61 11/30/20 11:20 Pulse Ox 93 L 11/30/20 11:20 Intake & Output 11/29/20 11/30/20 11/30/20 18:59 06:59 18:59 Intake Total 518 0 840 Output Total 800 Balance 518 -800 840 Weight 91.9 kg Intake: Intake, IV Titration 600 Amount Sodium Chloride 0.9% 1, 600 000 ml @ 75 mls/hr IV . [id number] [facility] Rx#:[id number] Oral 518 0 240 Output: Urine 800 Other: Voiding Method Toilet Toilet # Voids 2 - Exam No acute distress S1-S2 heard Decreased breath sounds Abdomen soft No edema - Labs CBC & Chem 7: 11/28/20 08:40 11/30/20 07:00 Labs: Abnormal Lab Results - Last 24 Hours (Table) 11/29/20 11/30/20 Range/Units 16:19 07:00 Sodium 133 L (137-145) mmol/L Chloride 94 L (98-107) mmol/L Carbon Dioxide 33 H (22-30) mmol/L BUN 40 H (7-17) mg/dL Creatinine 3.73 H (0.52-1.04) mg/dL Glucose 114 H (74-99) mg/dL Urine Appearance Cloudy H (Clear) Urine Protein Trace H (Negative) Ur Leukocyte Esterase Moderate H (Negative) Urine RBC 22 H (0-5) /hpf Urine WBC 24 H (0-5) /hpf Amorphous Sediment Rare H (None) /hpf Urine Bacteria Rare H (None) /hpf Urine Mucus Rare H (None) /hpf Assessment and Plan Assessment: #1 nonoliguric acute kidney injury secondary to suspected ELVIS /obstructive uropathy with left hydronephrosis on ultrasound. #2 chronic kidney disease stage III A secondary to nephrosclerosis/renal stones with a baseline creatinine of 1.3 MG per DL. #3 hypertension with chronic kidney disease #4 ST elevation MA status post cardiac cath #5 metabolic alkalosis with hyponatremia secondary to diuretic use. Plan: #1 renal function worsening. Continue with IV fluids. #2 appreciate urology input. Might benefit from cystoscopy with stent if renal function continued to worsen. #3 planned renal function, no acute indication for A [employer] at this time.
--- NOTE | 2020-11-30 13:18 | CT ---
EXAMINATION TYPE: CT abdomen pelvis wo con DATE OF EXAM: 11/30/2020 COMPARISON: Correlation ultrasound kidneys 12/16/2020 HISTORY: 70-year-old female with pain, Left ureteral stone CT DLP: 822.4 mGycm. Automated exposure control for dose reduction was used. TECHNIQUE: Contiguous axial scanning of the abdomen and pelvis without IV contrast. Coronal and sagit peg reconstructions performed. FINDINGS: Heart upper limits of normal in size without pericardial effusion. Some scattered coronary artery brando cifications are present. Lung bases clear without pleural effusion. Small hiatal hernia. Diminished attenuation of the hepatic parenchyma suggesting mild fatty infiltration. Cholecystectomy clips. Mild diffuse low-density thickening of the left greater than right adrenal glands. Peripherally calcified 4.0 cm cyst of the right kidney and a 8 mm nonobstructive right lower pole luís al calculus. Nonspecific 1.2 cm hypodensity posterior upper pole right kidney, probable cyst. There is moderate left-sided hydronephrosis and mild hydroureter with a 7 mm calculus in the distal t hird left ureter just beyond the iliac vessel crossing. Spleen and pancreas show no gross abnormal by noncontrast CT. Scattered [id number] prostatic calcifications abdominal aorta and common iliac arteries. No dilated small bowel, free fluid, or free air. No mesenteric or retroperitoneal lymphadenopathy see n. Normal appendix. Mild stool within the right side of the abdomen. Mild diverticular change mid sigmoi d colon. No pericolonic inflammatory change. Bladder is collapsed but with mild circumferential wall thickening. Uterus surgically absent. Neither ovary clearly visualized. Pelvic fluid was. No abnormal fluid collection in the pelvis or pelvic lym phadenopathy. Bones: Mild degenerative changes of both hips. Degenerative subarticular sclerosis right SI joint. Fa cet arthropathy lower lumbar spine. Grade 1 anterolisthesis L4-fill 5. Large endplate Schmorl's nodes T9 and T11 vertebral bodies. IMPRESSION: 1. A 7 mm calculus in the distal third left ureter with moderate obstructive uropathy. 2. A 4.0 cm peripherally calcified cystic appearing lesion of the right kidney. Six-month follow-up CT with contrast recommended to reassess and further characterize. 3. 8 mm nonobstructive right renal calculus. 4. Small hiatal hernia and mild hepatic steatosis. Mid sigmoid diverticulosis. 5. Mild circumferential bladder wall thickening may be chronic for the patient. Correlate to exclude cystitis.
--- NOTE | 2020-11-30 15:08 | P.PN ---
Subjective Progress Note Date: 11/30/20 The patient was seen this morning for an elevated creatinine at 3 (1.3) and left hydronephrosis. The patient has a history of stones. She is having persistent left flank pain. A computed tomography scan showed a 7 mm distal ureteral stone. I spoke with Dr. Chambers and he approved an anesthetic with her cardiac status. The patient will undergo cystoscopy left ureteroscopy laser lithotripsy and stent placement tomorrow. The patient consents that she is still having discomfort. She understands the procedure. Objective - Vital Signs Vital signs: Vital Signs Temp 98.1 F 11/30/20 11:20 Pulse 65 11/30/20 11:20 Resp 16 11/30/20 14:00 BP 134/61 11/30/20 11:20 Pulse Ox 93 L 11/30/20 11:20 Intake & Output 11/29/20 11/30/20 11/30/20 18:59 06:59 18:59 Intake Total 518 0 840 Output Total 800 Balance 518 -800 840 Weight 91.9 kg Intake: Intake, IV Titration 600 Amount Sodium Chloride 0.9% 1, 600 000 ml @ 75 mls/hr IV . [id number] [facility] Rx#:[id number] Oral 518 0 240 Output: Urine 800 Other: Voiding Method Toilet Toilet # Voids 2 - Labs CBC & Chem 7: 11/28/20 08:40 11/30/20 07:00 Labs: Abnormal Lab Results - Last 24 Hours (Table) 11/29/20 11/30/20 Range/Units 16:19 07:00 Sodium 133 L (137-145) mmol/L Chloride 94 L (98-107) mmol/L Carbon Dioxide 33 H (22-30) mmol/L BUN 40 H (7-17) mg/dL Creatinine 3.73 H (0.52-1.04) mg/dL Glucose 114 H (74-99) mg/dL Urine Appearance Cloudy H (Clear) Urine Protein Trace H (Negative) Ur Leukocyte Esterase Moderate H (Negative) Urine RBC 22 H (0-5) /hpf Urine WBC 24 H (0-5) /hpf Amorphous Sediment Rare H (None) /hpf Urine Bacteria Rare H (None) /hpf Urine Mucus Rare H (None) /hpf
[2020-11-30] MEDS: CHOLECALCIFEROL 25 MCG (1000 IU) TABLET PO SCH (21:23)
[2020-12-01] MEDS: PANTOPRAZOLE 40 MG TABLET PO SCH (06:29)
[2020-12-01] MEDS: LEVOTHYROXINE 100 MCG TAB PO SCH (06:29)
[2020-12-01 08:16] LABS: HCT 44.4 % (34.0-46.0); MCH 31.8 pg (25.0-35.0); MCHC 33.9 g/dL (31.0-37.0); MCV 93.8 fL (80.0-100.0); Mean Platelet Volume 8.8; Platelet Count 179 k/uL (150-450); RBC 4.73 m/uL (3.80-5.40); RDW 13.1 % (11.5-15.5); WBC 11.5 k/uL (3.8-10.6)
[2020-12-01 08:40] LABS: Albumin 3.5 g/dL (3.5-5.0); Calcium 8.7 mg/dL (8.4-10.2); Potassium 3.8 mmol/L (3.5-5.1); Total Bilirubin 0.9 mg/dL (0.2-1.3); Total Protein 6.4 g/dL (6.3-8.2)
[2020-12-01] MEDS: VITAMIN B12 PO SCH (09:05)
[2020-12-01] MEDS: B6 PO SCH (09:05)
[2020-12-01] MEDS: FOLATE PO SCH (09:05)
[2020-12-01] MEDS: NON FORMULARY DRUG (Fish Oil/Dha/Epa [Fish Oil 1,200 Mg Fish Oil] 1 EACH Capsule) PO SCH (09:05)
[2020-12-01] MEDS: hydrALAZINE HCL 50 MG TAB PO SCH ×4 (09:14→23:19)
[2020-12-01] MEDS: ASPIRIN 81 MG PO SCH (09:14)
[2020-12-01] MEDS: amLODIPine 5 MG TAB PO SCH (09:15)
[2020-12-01] MEDS: CLOPIDOGREL 75 MG TAB PO SCH (09:15)
[2020-12-01] MEDS: METOPROLOL TARTRATE 25 MG TAB PO SCH ×2 (09:15→19:56)
[2020-12-01] MEDS: ATORVASTATIN 80 MG TAB PO SCH (09:15)
[2020-12-01] MEDS: MORPHINE SULFATE 4 MG/ML SYRINGE IV PRN (09:25)
[2020-12-01] MEDS ORDERED: IV FLUID CONTINUATION 1,000 ML IV ONE (11:56)
--- NOTE | 2020-12-01 11:56 | P.PN ---
Subjective Progress Note Date: 12/01/20 HISTORY OF PRESENT ILLNESS This is a 70-year-old female patient of Dr. Moore with past medical history of hypertension, hypothyroidism, active tobacco use. Patient was last seen in the office 2 days ago at that time had lab work done and did not have any complaints of chest pain. Patient states she had sudden onset of chest pain at 550 this morning and thought it was heartburn-type and tightening in her chest. She also had sweats and shortness of breath. She came into [facility] emergency center for evaluation and EKG by EMS was concerning for ST elevated myocardial infarction and underwent an emergent heart catheterization with Dr. 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 Aortic root angiogram revealed fairly calcified right coronary artery which probably is occluded. Potentially down the line she to undergo a CTA for further clarification. she did not undergo angioplasty on the left circumflex coronary artery because the patient was chest pain-free throughout the procedure. blood pressure was elevated throughout procedure and Norvasc was added and recommended discontinuing the metoprolol due to bradycardia. Patient is seen today on the extended care unit. 11/27: Echocardiogram reveals EF of 60-65% with moderate concentric left ventricle hypertrophy, mild tricuspid regurgitation, suboptimal study. EKG was sinus bradycardia and poor R-wave progression. Cardiology has added Plavix to her regime and has resumed Lopressor 25 mg twice daily. Plan is to transfer out of ICU today. Patient has been afebrile, heart rate 66, blood pressure 145/71, pulse ox 94% on room air. media monitor is a sinus rhythm. Patient is stating that she has a little tightness in her chest. Yesterday she had pain in her left arm and face but none today. She is feeling a little short of breath. Repeat blood work reveals WBC 13.8, hemoglobin 15.8, platelet count 197. Electrolytes are all normal except for CO2 of 31, BUN 22 and creatinine 1.36 patient's baseline. Blood sugar 134. Triglycerides 115, cholesterol 176, LDL 93, HDL 60. 11/28: Dr. Alvarado reevaluated patient with plan for continued medical management and monitor over the next 1-2 nights with concern for complication. Patient states she's had some nausea. No chest pain. No lightheadedness or dizziness. She has been afebrile, heart rate 76, blood pressure 150/85, pulse ox 94% on room air. Basic chemistry panel ordered for tomorrow. Limited echocardiogram has been done today and report is pending. 11/29: Patient was supposed to be discharged home today surprisingly creatinine is up to 3.09 with BUN of 36 will be seen nephrology and most likely be going for Route renal ultrasound along with hydration repeat BUN/creatinine tomorrow before deciding is any patient's home. 11/30: Patient is doing much better today clinically except kidney function much worse ultrasound showed obstructive uropathy of the left side with atrophy of the right side sinus kidney stone, we will consult urology, still seen nephrology no need for hemodialysis at this point this is probably an underlying chronic kidney disease and affect of the iodine dye. 12/01: Repeat blood work reveals WBC 11.5. Na 134. BUN 43, creat 3.66. AST 46, ALT 38. Patient followed by Dr. Ray with plan for cystoscopy left ureteroscopy laser lithotripsy and stent placement. She has been afebrile, HR 81, BP 140/70, PO 94% on RA. Patient is also followed by nephrology. Plan to continue IVF currently at 75 cc/hr. Urine output is 800 ml over 24 hours. No Nausea, vomiting, diarrhea. She continues to have left flank discomfort. REVIEW OF SYSTEMS At the time of evaluation: Constitutional: No fever, no chills, no night sweats. No weight change. No weakness, fatigue or lethargy. No daytime sleepiness. EENT: No headache. No blurred vision or double vision, no loss of vision. No loss of Hearing, no ringing in the ears, no dizziness. No nasal drainage or congestion. No epistaxis. No sore throat. Lungs: Reports mild shortness of breath, cough, no sputum production. No wheezing. Cardiovascular: Reports intermittent chest pain, no lower extremity edema. No palpitations. No paroxysmal nocturnal dyspnea. No orthopnea. No lightheadedness or dizziness. No syncopal episodes. Abdominal: No abdominal pain. No nausea, vomiting. No diarrhea. No constipation. No bloody or tarry stools.. No loss of appetite. Genitourinary: No dysuria, increased frequency, urgency. No urinary retention. Ports left flank pain Musculoskeletal: No myalgias. No muscle weakness, no gait dysfunction, no frequent falls. No back pain. No neck pain. Integumentary: No wounds, no lesions. No rash or pruritus. No unusual bruising. No change in hair or nails. Neurologic: No aphasia. No facial droop. No change in mentation. No head injury. No headache. No paralysis. No paresthesia. Psychiatric: No depression. No anxiety. No mood swings. Endocrine: No abnormal blood sugars. No weight change. No excessive sweating or thirst. No cold intolerance. PHYSICAL EXAMINATION Gen: This is a 70-year-old obese female. She is resting in bed and appears to be in no acute distress. HEENT: Head is atraumatic, normocephalic. Pupils equal, round. Sclerae is anicteric. NECK: Supple. No JVD. No lymphadenopathy. No thyromegaly. LUNGS: Clear to auscultation. No wheezes or rhonchi. No intercostal retractions. HEART: Regular rate and rhythm. No murmur. ABDOMEN: Soft. Bowel sounds are present. No masses. No tenderness. EXTREMITIES: No pedal edema. No calf tenderness. NEUROLOGICAL: Patient is awake, alert and oriented x3. Cranial nerves 2 through 12 are grossly intact. ASSESSMENT AND PLAN 1. Acute inferior wall myocardial infarction status post heart catheterization with Dr. Foss finding intermediate to severe disease in the proximal left circumflex artery, not stented. Continue aspirin 81 mg daily, Lipitor 80 mg daily, Norvasc 5 mg daily, Plavix 75 mg daily. Did not have any intervention on medical management only. 2. Acute kidney injury: Most likely from the effect of the iodine along with hypoperfusion, obstructive uropathy. Continue IVF, consults with urology and nephrology appreciated. Plan for cystoscopy left ureteroscopy laser lithotripsy and stent placement tpoday. 3. Hypertensive emergency. Patient started on Norvasc 5 mg daily, continue hydralazine 50 mg qid, lasix 20 mg IVP every 12 hours. Lopressor resumed at 25 mg twice daily. 4. Hypothyroidism. Continue levothyroxine 88 g Tuesday through Tuesday and 100 g on Tuesday and Tuesday 5. Chronic kidney disease stage 3. Avoid nephrotoxic agents. Worsening kidney function require little bit more attention at this point. 6. Bradycardia. Metoprolol discontinued. 7. GI prophylaxis. Protonic 40 mg po daily. DISCHARGE PLAN We will delay discharged her kidney function is better. Possible discharge on Tuesday. Impression and plan of care have been directed as dictated by the signing physician. Micki Pinedo nurse practitioner acting as scribe for signing physi maura. Objective - Vital Signs Vital signs: Vital Signs Temp 98 F 11/30/20 15:53 Pulse 81 12/01/20 04:00 Resp 16 12/01/20 04:00 BP 140/70 12/01/20 04:00 Pulse Ox 94 L 12/01/20 04:00 Intake & Output 11/30/20 12/01/20 12/01/20 18:59 06:59 18:59 Intake Total 1080 Output Total 400 Balance 1080 -400 Weight 92.9 kg Intake: Intake, IV Titration 600 Amount Sodium Chloride 0.9% 1, 600 000 ml @ 75 mls/hr IV . [id number] [facility] Rx#:[id number] Oral 480 Output: Urine 400 - Labs CBC & Chem 7: 12/01/20 07:44 12/01/20 07:44 Labs: Abnormal Lab Results - Last 24 Hours (Table) 12/01/20 12/01/20 Range/Units 07:44 07:44 WBC 11.5 H (3.8-10.6) k/uL Sodium 134 L (137-145) mmol/L BUN 43 H (7-17) mg/dL Creatinine 3.66 H (0.52-1.04) mg/dL Glucose 109 H (74-99) mg/dL AST 46 H (14-36) U/L ALT 38 H (4-34) U/L
[2020-12-01] MEDS ORDERED: ONDANSETRON 4 MG/2 ML VIAL ONE (12:07)
[2020-12-01] MEDS ORDERED: ONDANSETRON 4 MG/2 ML VIAL IVP ONE (12:10)
[2020-12-01] MEDS ORDERED: SUCCINYLCHOLINE CHLORIDE 100 MG/5 ML SYR IV ONE (12:52)
[2020-12-01] MEDS ORDERED: PROPOFOL 10 MG/ML 20 ML VIAL IV ONE (12:52)
[2020-12-01] MEDS ORDERED: LIDOCAINE 1% INJ 10MG/ML (20 ML MDV) ONE (12:52)
[2020-12-01] MEDS ORDERED: fentaNYL (PF) 50 MCG/ML 2 ML AMP ONE (12:52)
[2020-12-01] MEDS ORDERED: ETOMIDATE 2 MG/ML 10 ML VIAL ONE (12:52)
[2020-12-01] MEDS ORDERED: ALBUTEROL HFA INHALER INHALATION ONE (12:52)
[2020-12-01] MEDS ORDERED: ePHEDrine SULFATE/0.9% NACL/PF 50 MG/5 ML SYRINGE IV ONE (12:52)
[2020-12-01] MEDS: SODIUM CHLORIDE 0.9% 1,000 ML IV SCH ×2 (13:06→19:59)
[2020-12-01] MEDS ORDERED: SODIUM CHLORIDE 0.9% 100 ML with ceFAZolin 2,000 MG IV ONE ×2 (13:20)
--- NOTE | 2020-12-01 13:49 | FL ---
EXAMINATION TYPE: FL urography retrograde DATE OF EXAM: 12/01/2020 COMPARISON: NONE HISTORY: Fluoroscopy TECHNIQUE: Fluoroscopy. FINDINGS: Fluoroscopic guidance was provided during procedure of less than 1 minute.
--- NOTE | 2020-12-01 14:01 | P.OP ---
Date of Procedure: 12/01/20 Preoperative Diagnosis: Left ureteral calculus with obstruction Postoperative Diagnosis: Same Procedure(s) Performed: Cystoscopy, left ureteroscopy with laser lithotripsy, placement of 624 double-J catheter Anesthesia: SELENE Surgeon: Bridger Ray Estimated Blood Loss (ml): 0 Pathology: other (Stone) Condition: stable Disposition: PACU Indications for Procedure: The patient is 70. She is in the hospital for hypertension emergency and a STEMI. Cardiac catheter. Postoperatively her creatinine went from 1.3-3.0. An ultrasound was obtained identifying left-sided hydronephrosis and I was consult. VT scan without contrast identifies a 7to 8 mm distal ureteral stone. The pat ient has a history of stones and this is consistent with that. She comes for stent placement and possible stone removal because its distal Description of Procedure: The patient is brought to the operating suite. She is given 2 g Kefzol preoperatively. She's given a general anesthetic. She's placed lithotomy position with sterile prep and drape. Cystoscopy Foroblique lens and 21-Emirati sheath identifies chronic cystitis cystica. Both ureteral orifices are normal. The stone was seen in the distal left ureter under fluoroscopy. The 7-Emirati mini ureteroscope was easily passed to the stone with minimal trauma. With the 270 laser probe quickly the stone was broken into tiny pieces and flushed out of the left ureter. Because of the level of creatinine a stent will be placed. An 035 wire is passed a the ureteroscope. The scope was removed. Over the wires passed a left 6 x 24 double-J catheter that coils in the left renal pelvis and the bladder. The bladder strain the patient's awake and returned recovery room good condition. From urologic standpoint she can be discharged home at any time. She should follow-up in the office in one week for cystoscopy stent removal. Blood loss was negligible. The patient tolerated the procedure well.
--- NOTE | 2020-12-01 14:44 | PN ---
PROGRESS NOTE The patient is seen for followup for acute kidney injury. She is scheduled for a cystoscopy today. When she was seen this morning patient was awaiting for her procedure. However, it looks like it has been performed and patient had left ureteroscopy with laser lithotripsy and placement of double-J catheter on the left side. This morning she denied any significant complaints. Some discomfort in the lower back area. PHYSICAL EXAMINATION: Blood pressure this morning at 130/64, heart rate 79 per minute. She is afebrile. EXAMINATION OF THE HEART: S1, S2. EXAMINATION OF THE LUNGS: Bilateral breath sounds are heard. Abdomen is soft, nontender. Examination of lower extremities shows no significant edema. [employer] exam grossly intact. LABS: Labs show sodium 134, potassium 3.8, BUN 43, creatinine 3.6, hemoglobin 15.0. ASSESSMENT: 1. Acute kidney injury, obstructive uropathy with left hydronephrosis with component of chronic interstitial nephropathy/acute tubular necrosis. 2. Chronic kidney disease stage 3 secondary to nephrosclerosis, nephrolithiasis. Baseline creatinine about 1.3. 3. ST elevation myocardial infarction, status post cardiac cath. 4. Hypertension with chronic kidney disease. PLAN: Repeat labs in a.m. Monitor urine output postprocedure and continue with IV fluids for now. MMODL / IJN: [id number] /
--- NOTE | 2020-12-01 14:51 | P.PN ---
Subjective This is a 70-year-old female patient with hypertension and dyslipidemia who we consulted to see for further evaluation of chest discomfort and possible acute ST segment elevation myocardial infarction. 11/26/2020: She underwent an emergent heart catheterization and was found to have intermediate to severe disease involving the proximal left circumflex coronary artery but the right coronary artery was not well opacified in spite of using multiple diagnosed think and guiding catheters. The procedure was performed from the right common femoral artery and ended without any complication. US kidneys/renal and bladder- Left sided hydronephrosis, no significant renal atrophy CT abdomen and pelvis revealed 7mm calculus in norm distal third left ureter with moderate obstructive uropathy. 12/01/2020: Patient examined this morning at the bedside. Patient denies chest pain or pressure. She denies shortness of breath. She has been evaluated by nephrology and started on IV fluids. Lasix has been discontinued. BP 130/64, heart rate 79, maintaining oxygen saturation is on room air, afebrile. Telemetry reveiwed, patient sinus rhythm HR 70s-80s. Laboratory data reviewed, WBC 11.5, hemoglobin 15, platelets 179, sodium 134, potassium 3.8, serum creatinine 3.6, BUN 43. Patient is currently being maintained on amlodipine 5mg daily, aspirin 81 mg daily, atorvastatin 80 mg daily, Plavix 75 mg daily, hydralazine 50 mg 4 times a day, metoprolol titrate 25 mg twice a day PHYSICAL EXAM: VITAL SIGNS: Reviewed. GENERAL: Well-developed in no acute distress. NECK: Supple. No JVD or thyromegaly LUNGS: Respirations even and unlabored. Lungs essentially clear to auscultation bilaterally. HEART: Regular rate and rhythm. S1 and S2 heard. EXTREMITIES: Normal range of motion. No clubbing or cyanosis. Peripheral pulses intact. No lower extremity edema. R femoral site, clean dry and intact, no hematoma ASSESSMENT: Acute inferior wall STEMI, unable to perform angioplasty due to inability to visualize right coronary artery Acute on Chronic Kidney Disease Hypertension Hypothyroidism PLAN: Plan for patient to undergo cystoscopy left ureteroscopy laser lithotripsy and stent placement today Continue current cardiac medications- amlodipine 5mg daily, aspirin 81 mg daily, atorvastatin 80 mg daily, Plavix 75 mg daily, hydralazine 50 mg QID, metoprolol titrate 25 mg BID Continue telemetry monitoring Nephrology following Urology following Continue to monitor kidney function Further recommendations pending patient's course Nurse practitioner note has been reviewed by physician. Signing provider agrees with the documented findings, assessment, and plan of care. Objective - Vital Signs Vital signs: Vital Signs Temp 97.1 F L 12/01/20 13:52 Pulse 99 12/01/20 14:22 Resp 16 12/01/20 14:22 BP 156/75 12/01/20 14:22 Pulse Ox 99 12/01/20 14:22 Intake & Output 11/30/20 12/01/20 12/01/20 18:59 06:59 18:59 Intake Total 1080 750 Output Total 400 0 Balance 1080 -400 750 Weight 92.9 kg Intake: IV 600 Intake, IV Titration 600 150 Amount Sodium Chloride 0.9% 1, 600 150 000 ml @ 75 mls/hr IV . [id number] [facility] Rx#:[id number] Oral 480 0 Output: Urine 400 Estimated Blood Loss 0 Other: Voiding Method Toilet - Labs CBC & Chem 7: 12/01/20 07:44 12/01/20 07:44 Labs: Abnormal Lab Results - Last 24 Hours (Table) 12/01/20 12/01/20 Range/Units 07:44 07:44 WBC 11.5 H (3.8-10.6) k/uL Sodium 134 L (137-145) mmol/L BUN 43 H (7-17) mg/dL Creatinine 3.66 H (0.52-1.04) mg/dL Glucose 109 H (74-99) mg/dL AST 46 H (14-36) U/L ALT 38 H (4-34) U/L
[2020-12-01] MEDS: CHOLECALCIFEROL 25 MCG (1000 IU) TABLET PO SCH (19:56)
[2020-12-02] MEDS: PANTOPRAZOLE 40 MG TABLET PO SCH (06:32)
[2020-12-02] MEDS: LEVOTHYROXINE 88 MCG TAB PO SCH (06:32)
[2020-12-02] MEDS: NON FORMULARY DRUG (Fish Oil/Dha/Epa [Fish Oil 1,200 Mg Fish Oil] 1 EACH Capsule) PO SCH (08:17)
[2020-12-02] MEDS: B6 PO SCH (08:18)
[2020-12-02] MEDS: VITAMIN B12 PO SCH (08:18)
[2020-12-02] MEDS: FOLATE PO SCH (08:18)
[2020-12-02] MEDS: hydrALAZINE HCL 50 MG TAB PO SCH ×4 (08:34→22:30)
[2020-12-02] MEDS: ATORVASTATIN 80 MG TAB PO SCH (08:34)
[2020-12-02] MEDS: ASPIRIN 81 MG PO SCH (08:35)
[2020-12-02] MEDS: METOPROLOL TARTRATE 25 MG TAB PO SCH ×2 (08:35→19:45)
[2020-12-02] MEDS: amLODIPine 5 MG TAB PO SCH (08:35)
[2020-12-02] MEDS: CLOPIDOGREL 75 MG TAB PO SCH (08:35)
[2020-12-02 09:24] LABS: HCT 44.8 % (34.0-46.0); HGB 14.6 gm/dL (11.4-16.0); MCH 31.3 pg (25.0-35.0); MCHC 32.7 g/dL (31.0-37.0); MCV 95.9 fL (80.0-100.0); Mean Platelet Volume 8.7; Platelet Count 194 k/uL (150-450); RBC 4.67 m/uL (3.80-5.40); RDW 13.3 % (11.5-15.5); WBC 13.3 k/uL (3.8-10.6)
--- NOTE | 2020-12-02 09:32 | P.PN ---
Progress Note - Text Progress Note Date: 12/02/20 The patient underwent successful ureteroscopic removal of her left ureteral calculus yesterday. She is very comfortable today. She reports minimal hematuria, and was reassured that this is expected. She is urologically stable for discharge and will follow-up with Dr. Ray in 1 week for office cystoscopy with stent removal. Please notify us if we can be of further assistance.
[2020-12-02 09:57] LABS: Albumin 3.2 g/dL (3.5-5.0); Calcium 8.4 mg/dL (8.4-10.2); Total Bilirubin 0.7 mg/dL (0.2-1.3); Total Protein 6.1 g/dL (6.3-8.2)
[2020-12-02 10:01] LABS: Potassium 3.9 mmol/L (3.5-5.1)
--- NOTE | 2020-12-02 11:44 | P.PN ---
Subjective Progress Note Date: 12/02/20 HISTORY OF PRESENT ILLNESS This is a 70-year-old female patient of Dr. Moore with past medical history of hypertension, hypothyroidism, active tobacco use. Patient was last seen in the office 2 days ago at that time had lab work done and did not have any complaints of chest pain. Patient states she had sudden onset of chest pain at 550 this morning and thought it was heartburn-type and tightening in her chest. She also had sweats and shortness of breath. She came into [facility] emergency center for evaluation and EKG by EMS was concerning for ST elevated myocardial infarction and underwent an emergent heart catheterization with Dr. 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 Aortic root angiogram revealed fairly calcified right coronary artery which probably is occluded. Potentially down the line she to undergo a CTA for further clarification. she did not undergo angioplasty on the left circumflex coronary artery because the patient was chest pain-free throughout the procedure. blood pressure was elevated throughout procedure and Norvasc was added and recommended discontinuing the metoprolol due to bradycardia. Patient is seen today on the extended care unit. 11/27: Echocardiogram reveals EF of 60-65% with moderate concentric left ventricle hypertrophy, mild tricuspid regurgitation, suboptimal study. EKG was sinus bradycardia and poor R-wave progression. Cardiology has added Plavix to her regime and has resumed Lopressor 25 mg twice daily. Plan is to transfer out of ICU today. Patient has been afebrile, heart rate 66, blood pressure 145/71, pulse ox 94% on room air. 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 Patient is stating that she has a little tightness in her chest. Yesterday she had pain in her left arm and face but none today. She is feeling a little short of breath. Repeat blood work reveals WBC 13.8, hemoglobin 15.8, platelet count 197. Electrolytes are all normal except for CO2 of 31, BUN 22 and creatinine 1.36 patient's baseline. Blood sugar 134. Triglycerides 115, cholesterol 176, LDL 93, HDL 60. 11/28: Dr. Alvarado reevaluated patient with plan for continued medical management and monitor over the next 1-2 nights with concern for complication. Patient states she's had some nausea. No chest pain. No lightheadedness or dizziness. She has been afebrile, heart rate 76, blood pressure 150/85, pulse ox 94% on room air. Basic chemistry panel ordered for tomorrow. Limited echocardiogram has been done today and report is pending. 11/29: Patient was supposed to be discharged home today surprisingly creatinine is up to 3.09 with BUN of 36 will be seen nephrology and most likely be going for Route renal ultrasound along with hydration repeat BUN/creatinine tomorrow before deciding is any patient's home. 11/30: Patient is doing much better today clinically except kidney function much worse ultrasound showed obstructive uropathy of the left side with atrophy of the right side sinus kidney stone, we will consult urology, still seen nephrology no need for hemodialysis at this point this is probably an underlying chronic kidney disease and affect of the iodine dye. 12/01: Repeat blood work reveals WBC 11.5. Na 134. BUN 43, creat 3.66. AST 46, ALT 38. Patient followed by Dr. Ray with plan for cystoscopy left ureteroscopy laser lithotripsy and stent placement. She has been afebrile, HR 81, BP 140/70, PO 94% on RA. Patient is also followed by nephrology. Plan to continue IVF currently at 75 cc/hr. Urine output is 800 ml over 24 hours. No Nausea, vomiting, diarrhea. She continues to have left flank discomfort. 12/02: Patient has been afebrile, heart rate 79, blood pressure 125/79, pulse ox 94% on 2 L nasal cannula. Repeat blood work reveals WBC 13.3. Hemoglobin 14.6. Sodium 136 otherwise electrolytes are normal. Potassium is 3.9. BUN 35 and creatinine 2.41. Blood sugar 100. AST 53 and AST 65. Patient is currently on IV fluids at 75 mL per hour followed by nephrology. Anticipate continued improvement of her renal function by tomorrow. She is status post cystoscopy, left ureteroscopy with laser lithotripsy, placement of 624 double-J catheter with Dr. Ray. Patient has been rechecked by urology and cleared for discharge with planned follow-up Dr. Ray in the office in a week. Vision is anxious to go home but willing to stay for another day. REVIEW OF SYSTEMS At the time of evaluation: Constitutional: No fever, no chills, no night sweats. No weight change. No weakness, fatigue or lethargy. No daytime sleepiness. EENT: No headache. No blurred vision or double vision, no loss of vision. No loss of Hearing, no ringing in the ears, no dizziness. No nasal drainage or congestion. No epistaxis. No sore throat. Lungs: Reports mild shortness of breath, cough, no sputum production. No wheezing. Cardiovascular: Reports intermittent chest pain, no lower extremity edema. No palpitations. No paroxysmal nocturnal dyspnea. No orthopnea. No lightheadedness or dizziness. No syncopal episodes. Abdominal: No abdominal pain. No nausea, vomiting. No diarrhea. No constipation. No bloody or tarry stools.. No loss of appetite. Genitourinary: No dysuria, increased frequency, urgency. No urinary retention. Improved left flank pain and minimal hematuria. Musculoskeletal: No myalgias. No muscle weakness, no gait dysfunction, no frequent falls. No back pain. No neck pain. Integumentary: No wounds, no lesions. No rash or pruritus. No unusual bruising. No change in hair or nails. Neurologic: No aphasia. No facial droop. No change in mentation. No head injury. No headache. No paralysis. No paresthesia. Psychiatric: No depression. No anxiety. Endocrine: No abnormal blood sugars. No weight change. PHYSICAL EXAMINATION Gen: This is a 70-year-old obese female. She is resting in bed and appears to be in no acute distress. HEENT: Head is atraumatic, normocephalic. Pupils equal, round. Sclerae is anicteric. NECK: Supple. No JVD. No lymphadenopathy. No thyromegaly. LUNGS: Clear to auscultation. No wheezes or rhonchi. No intercostal retractions. HEART: Regular rate and rhythm. No murmur. ABDOMEN: Soft. Bowel sounds are present. No masses. No tenderness. EXTREMITIES: No pedal edema. No calf tenderness. NEUROLOGICAL: Patient is awake, alert and oriented x3. Cranial nerves 2 through 12 are grossly intact. ASSESSMENT AND PLAN 1. Acute inferior wall myocardial infarction status post heart catheterization with Dr. Foss finding intermediate to severe disease in the proximal left circumflex artery, not stented. Continue aspirin 81 mg daily, Lipitor 80 mg daily, Norvasc 5 mg daily, Plavix 75 mg daily. Did not have any intervention on medical management only. 2. Acute kidney injury on the improving: Most likely from the effect of the iodine along with hypoperfusion, obstructive uropathy. Continue IVF, consults with urology and nephrology appreciated. Status post cystoscopy left ureteroscopy laser lithotripsy and stent placement . 3. Hypertensive emergency. Patient started on Norvasc 5 mg daily, continue hydralazine 50 mg qid. Lopressor resumed at 25 mg twice daily. 4. Hypothyroidism. Continue levothyroxine 88 g Tuesday through Tuesday and 100 g on Tuesday and Tuesday 5. Chronic kidney disease stage 3. Avoid nephrotoxic agents. Worsening kidney function require little bit more attention at this point. 6. Bradycardia. Metoprolol discontinued. 7. GI prophylaxis. Protonic 40 mg po daily. DISCHARGE PLAN Possible discharge on Tuesday. Impression and plan of care have been directed as dictated by the signing physician. Micki Pinedo nurse practitioner acting as scribe for signing physician. Objective - Vital Signs Vital signs: Vital Signs Temp 98.5 F 12/01/20 20:00 Pulse 79 12/02/20 04:00 Resp 17 12/02/20 04:00 BP 125/79 12/02/20 04:00 Pulse Ox 94 L 12/02/20 07:53 Intake & Output 12/01/20 12/02/20 12/02/20 18:59 06:59 18:59 Intake Total 750 303 Output Total 0 Balance 750 303 Intake: IV 600 10 Invasive Line 6 10 Intake, IV Titration 150 75 Amount Sodium Chloride 0.9% 1, 150 75 000 ml @ 75 mls/hr IV . [id number] [facility] Rx#:[id number] Oral 0 218 Output: Estimated Blood Loss 0 Other: Voiding Method Toilet Toilet # Voids 1 # Bowel Movements 1 - Labs CBC & Chem 7: 12/02/20 08:20 12/02/20 08:20 Labs: Abnormal Lab Results - Last 24 Hours (Table) 12/01/20 Range/Units 07:44 Sodium 134 L (137-145) mmol/L BUN 43 H (7-17) mg/dL Creatinine 3.66 H (0.52-1.04) mg/dL Glucose 109 H (74-99) mg/dL AST 46 H (14-36) U/L ALT 38 H (4-34) U/L
--- NOTE | 2020-12-02 14:53 | P.PN ---
Subjective This is a 70-year-old female patient with hypertension and dyslipidemia who we consulted to see for further evaluation of chest discomfort and possible acute ST segment elevation myocardial infarction. 11/26/2020: She underwent an emergent heart catheterization and was found to have intermediate to severe disease involving the proximal left circumflex coronary artery but the right coronary artery was not well opacified in spite of using multiple diagnosed think and guiding catheters. The procedure was performed from the right common femoral artery and ended without any complication. US kidneys/renal and bladder- Left sided hydronephrosis, no significant renal atrophy CT abdomen and pelvis revealed 7mm calculus in norm distal third left ureter with moderate obstructive uropathy. 12/01/2020:Patient underwent cystoscopy left ureteroscopy laser lithotripsy and stent placement 12/02/2020 Patient examined this morning at the bedside, sitting up in chair. Patient denies chest pain or pressure. She denies shortness of breath. BP 125/79, heart rate 79, maintaining oxygen saturation is on room air, afebrile. Telemetry reveiwed, patient sinus rhythm HR 70s-80s. Laboratory data reviewed, WBC 13.3 hemoglobin 14.6 platelets 194 sodium 136, potassium 3.9, serum creatinine 2.41 (improving from yesterday 3.66), BUN 35. Patient is currently being maintained on amlodipine 5mg daily, aspirin 81 mg daily, atorvastatin 80 mg daily, Plavix 75 mg daily, hydralazine 50 mg 4 times a day, metoprolol titrate 25 mg twice a day PHYSICAL EXAM: VITAL SIGNS: Reviewed. GENERAL: Well-developed in no acute distress. NECK: Supple. No JVD or thyromegaly LUNGS: Respirations even and unlabored. Lungs essentially clear to auscultation bilaterally. HEART: Regular rate and rhythm. S1 and S2 heard. EXTREMITIES: Normal range of motion. No clubbing or cyanosis. Peripheral pulses intact. No lower extremity edema. R femoral site, clean dry and intact, no hematoma ASSESSMENT: Acute inferior wall STEMI, unable to perform angioplasty due to inability to visualize right coronary artery Acute on Chronic Kidney Disease Hypertension Hypothyroidism PLAN: Continue current cardiac medications- amlodipine 5mg daily, aspirin 81 mg daily, atorvastatin 80 mg daily, Plavix 75 mg daily, hydralazine 50 mg QID, metoprolol titrate 25 mg BID Continue telemetry monitoring Nephrology following Urology following Continue to monitor kidney function No changes from cardiology standpoint, no further cardiac workup at this time. Patient will follow up with Dr. Foss outpatient for further cardiac workup in 1 week. Nurse practitioner note has been reviewed by physician. Signing provider agrees with the documented findings, assessment, and plan of care. Objective - Vital Signs Vital signs: Vital Signs Temp 98.5 F 12/01/20 20:00 Pulse 79 12/02/20 04:00 Resp 17 12/02/20 04:00 BP 125/79 12/02/20 04:00 Pulse Ox 94 L 12/02/20 07:53 Intake & Output 12/01/20 12/02/20 12/02/20 18:59 06:59 18:59 Intake Total 750 303 240 Output Total 0 Balance 750 303 240 Intake: IV 600 10 Invasive Line 6 10 Intake, IV Titration 150 75 Amount Sodium Chloride 0.9% 1, 150 75 000 ml @ 75 mls/hr IV . [id number] [facility] Rx#:[id number] Oral 0 218 240 Output: Estimated Blood Loss 0 Other: Voiding Method Toilet Toilet # Voids 1 # Bowel Movements 1 - Labs CBC & Chem 7: 12/02/20 08:20 12/02/20 08:20 Labs: Abnormal Lab Results - Last 24 Hours (Table) 12/02/20 12/02/20 Range/Units 08:20 08:20 WBC 13.3 H (3.8-10.6) k/uL Sodium 136 L (137-145) mmol/L BUN 35 H (7-17) mg/dL Creatinine 2.41 H (0.52-1.04) mg/dL Glucose 100 H (74-99) mg/dL AST 53 H (14-36) U/L ALT 35 H (4-34) U/L Total Protein 6.1 L (6.3-8.2) g/dL Albumin 3.2 L (3.5-5.0) g/dL
--- NOTE | 2020-12-02 16:16 | PN ---
PROGRESS NOTE Patient is seen for followup for acute kidney injury, acute tubular necrosis, with component of obstructive uropathy, status post cystoscopy and ureteroscopic removal of left ureteral calculus. Overall patient is feeling better. Her creatinine has improved, and it is down to 2.4 from 3.6 yesterday. PHYSICAL EXAMINATION: On examination today, blood pressure 125/79, heart rate 79 per minute. She is afebrile. EXAMINATION OF THE HEART: S1 and S2. EXAMINATION OF LUNGS: Bilateral breath sounds are heard. ABDOMEN: Soft, non-tender. Examination of lower extremities shows no evidence of edema. INTERNAL COMMUNICATIONS WRITER exam is grossly intact. LABS: Sodium 136, potassium 3.9, chloride 101, BUN 35, creatinine 2.4, hemoglobin 14.6 g/dL. ASSESSMENT: 1. Acute kidney injury, acute tubular necrosis and obstructive uropathy, currently improving. 2. Chronic kidney disease, stage 3. Baseline creatinine about 1.3 secondary to nephrosclerosis/nephrolithiasis. 3. ST-elevation myocardial infarction, status post cardiac catheterization. 4. Hypertension with chronic kidney disease. PLAN: Continue current antihypertensive regimen. Decrease IV fluids. Repeat labs in a.m. Patient will need close followup post discharge. Her previous creatinine was as low as 1.3 on 11/26/2020. MMODL / IJN: [id number] /
[2020-12-02] MEDS: SODIUM CHLORIDE 0.9% 1,000 ML IV SCH ×2 (17:57→22:34)
[2020-12-02] MEDS: CHOLECALCIFEROL 25 MCG (1000 IU) TABLET PO SCH (19:45)
[2020-12-03] MEDS: PANTOPRAZOLE 40 MG TABLET PO SCH (06:34)
[2020-12-03] MEDS: LEVOTHYROXINE 100 MCG TAB PO SCH (06:34)
[2020-12-03] MEDS: amLODIPine 5 MG TAB PO SCH (09:25)
[2020-12-03] MEDS: ASPIRIN 81 MG PO SCH (09:25)
[2020-12-03] MEDS: ATORVASTATIN 80 MG TAB PO SCH (09:25)
[2020-12-03] MEDS: hydrALAZINE HCL 50 MG TAB PO SCH ×4 (09:26→20:42)
[2020-12-03] MEDS: METOPROLOL TARTRATE 25 MG TAB PO SCH ×2 (09:26→20:42)
[2020-12-03] MEDS: CLOPIDOGREL 75 MG TAB PO SCH (09:26)
[2020-12-03] MEDS: NON FORMULARY DRUG (Fish Oil/Dha/Epa [Fish Oil 1,200 Mg Fish Oil] 1 EACH Capsule) PO SCH (09:54)
[2020-12-03] MEDS: VITAMIN B12 PO SCH (09:55)
[2020-12-03] MEDS: FOLATE PO SCH (09:55)
[2020-12-03] MEDS: B6 PO SCH (09:55)
[2020-12-03] MEDS ORDERED: FUROSEMIDE 10 MG/ML 2 ML VIAL IV STA (10:09)
--- NOTE | 2020-12-03 10:41 | XR ---
EXAMINATION TYPE: XR chest 1V portable DATE OF EXAM: 12/03/2020 COMPARISON: 11/26/2020 HISTORY: Shortness of breath TECHNIQUE: Single frontal view of the chest is obtained. FINDINGS: Coarsened interstitium with bibasilar infiltrate. Hyperinflation. Diffuse osteopenia with arthropathy of the shoulders. Diffuse osteopenia with arthropathy of the shoulders. No sizable pneumo thorax. IMPRESSION: Bibasilar infiltrate similar to the prior exam..
[2020-12-03 11:48] VITALS: BMI 37.5
[2020-12-03 11:59] LABS: Calcium 8.8 mg/dL (8.4-10.2); Potassium 3.6 mmol/L (3.5-5.1)
--- NOTE | 2020-12-03 12:07 | NM ---
EXAMINATION TYPE: NM pul perfusion DATE OF EXAM: 12/03/2020 COMPARISON: Chest x-ray 12/03/2020 HISTORY: Hypoxia Following administration of 5.1 mCi Tc 99m MAA. Images obtained post injection. FINDINGS: There is heterogeneous uptake involving the right lower lobe and left upper lobe. No ventilation imag es are submitted. IMPRESSION: Patchy peripheral reduced uptake involving the lungs bilaterally. Findings compatible perfusion defec ts. Cannot give a probability due to lack of ventilation images. Pulmonary embolism not excluded.
[2020-12-03 12:10] LABS: Glucose,Whole Blood 81 mg/dL (75-99)
[2020-12-03] MEDS ORDERED: HEPARIN SODIUM 1,000 UN/ML (10ML VL) IV ONE (13:23)
[2020-12-03] MEDS ORDERED: HEPARIN SODIUM 1,000 UN/ML (10ML VL) IV PRN (13:23)
--- NOTE | 2020-12-03 13:42 | P.PN ---
Subjective Progress Note Date: 12/03/20 HISTORY OF PRESENT ILLNESS This is a 70-year-old female patient of Dr. Moore with past medical history of hypertension, hypothyroidism, active tobacco use. Patient was last seen in the office 2 days ago at that time had lab work done and did not have any complaints of chest pain. Patient states she had sudden onset of chest pain at 550 this morning and thought it was heartburn-type and tightening in her chest. She also had sweats and shortness of breath. She came into [facility] emergency center for evaluation and EKG by EMS was concerning for ST elevated myocardial infarction and underwent an emergent heart catheterization with Dr. 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 Aortic root angiogram revealed fairly calcified right coronary artery which probably is occluded. Potentially down the line she to undergo a CTA for further clarification. she did not undergo angioplasty on the left circumflex coronary artery because the patient was chest pain-free throughout the procedure. blood pressure was elevated throughout procedure and Norvasc was added and recommended discontinuing the metoprolol due to bradycardia. Patient is seen today on the extended care unit. 11/27: Echocardiogram reveals EF of 60-65% with moderate concentric left ventricle hypertrophy, mild tricuspid regurgitation, suboptimal study. EKG was sinus bradycardia and poor R-wave progression. Cardiology has added Plavix to her regime and has resumed Lopressor 25 mg twice daily. Plan is to transfer out of ICU today. Patient has been afebrile, heart rate 66, blood pressure 145/71, pulse ox 94% on room air. school lunch monitor is a sinus rhythm. Patient is stating that she has a little tightness in her chest. Yesterday she had pain in her left arm and face but none today. She is feeling a little short of breath. Repeat blood work reveals WBC 13.8, hemoglobin 15.8, platelet count 197. Electrolytes are all normal except for CO2 of 31, BUN 22 and creatinine 1.36 patient's baseline. Blood sugar 134. Triglycerides 115, cholesterol 176, LDL 93, HDL 60. 11/28: Dr. Alvarado reevaluated patient with plan for continued medical management and monitor over the next 1-2 nights with concern for complication. Patient states she's had some nausea. No chest pain. No lightheadedness or dizziness. She has been afebrile, heart rate 76, blood pressure 150/85, pulse ox 94% on room air. Basic chemistry panel ordered for tomorrow. Limited echocardiogram has been done today and report is pending. 11/29: Patient was supposed to be discharged home today surprisingly creatinine is up to 3.09 with BUN of 36 will be seen nephrology and most likely be going for Route renal ultrasound along with hydration repeat BUN/creatinine tomorrow before deciding is any patient's home. 11/30: Patient is doing much better today clinically except kidney function much worse ultrasound showed obstructive uropathy of the left side with atrophy of the right side sinus kidney stone, we will consult urology, still seen nephrology no need for hemodialysis at this point this is probably an underlying chronic kidney disease and affect of the iodine dye. 12/01: Repeat blood work reveals WBC 11.5. Na 134. BUN 43, creat 3.66. AST 46, ALT 38. Patient followed by Dr. Ray with plan for cystoscopy left ureteroscopy laser lithotripsy and stent placement. She has been afebrile, HR 81, BP 140/70, PO 94% on RA. Patient is also followed by nephrology. Plan to continue IVF currently at 75 cc/hr. Urine output is 800 ml over 24 hours. No Nausea, vomiting, diarrhea. She continues to have left flank discomfort. 12/02: Patient has been afebrile, heart rate 79, blood pressure 125/79, pulse ox 94% on 2 L nasal cannula. Repeat blood work reveals WBC 13.3. Hemoglobin 14.6. Sodium 136 otherwise electrolytes are normal. Potassium is 3.9. BUN 35 and creatinine 2.41. Blood sugar 100. AST 53 and AST 65. Patient is currently on IV fluids at 75 mL per hour followed by nephrology. Anticipate continued improvement of her renal function by tomorrow. She is status post cystoscopy, left ureteroscopy with laser lithotripsy, placement of 624 double-J catheter with Dr. Ray. Patient has been rechecked by urology and cleared for discharge with planned follow-up Dr. Ray in the office in a week. Vision is anxious to go home but willing to stay for another day. 12/03: Patient has had several episodes of descending down into the 70s. She is currently turned down to 2 L nasal cannula. Pulse ox 95% on 2 L. Patient dropped down to 87% on room air. Patient seems to be asymptomatic with this. VQ scan reveals patchy peripheral reduced uptake involving the lungs bilaterally. Findings compatible perfusion defects. Cannot give a probability due to lack of ventilation images. Pulmonary embolism not excluded. Consult added for pul monary medicine and patient started on heparin drip. Repeat chest x-ray reveals bibasilar infiltrates similar to prior exam. Renal function continues to improve slowly with BUN 29 creatinine 1.82. She received 1 dose of IV Lasix 20 mg this morning ordered by nephrology. REVIEW OF SYSTEMS At the time of evaluation: Constitutional: No fever, no chills, no night sweats. No weight change. No weakness, reports mild fatigue no lethargy. No daytime sleepiness. EENT: No headache. No blurred vision or double vision, no loss of vision. No loss of Hearing, no ringing in the ears, no dizziness. No nasal drainage or congestion. No epistaxis. No sore throat. Lungs: Reports mild shortness of breath, cough, no sputum production. No wheezing. Cardiovascular: Reports intermittent chest pain, no lower extremity edema. No palpitations. No paroxysmal nocturnal dyspnea. No orthopnea. No lightheadedness or dizziness. No syncopal episodes. Abdominal: No abdominal pain. No nausea, vomiting. No diarrhea. No constipation. No bloody or tarry stools.. No loss of appetite. Genitourinary: No dysuria, increased frequency, urgency. No urinary retention. Improved left flank pain and minimal hematuria. Musculoskeletal: No myalgias. No muscle weakness, no gait dysfunction, no frequent falls. No back pain. No neck pain. Integumentary: No wounds, no lesions. No rash or pruritus. No unusual bruising. No change in hair or nails. Neurologic: No aphasia. No facial droop. No change in mentation. No head injury. No headache. No paralysis. No paresthesia. Psychiatric: No depression. No anxiety. Endocrine: No abnormal blood sugars. No weight change. PHYSICAL EXAMINATION Gen: This is a 70-year-old obese female. She is resting in recliner and appears to be in no acute distress. HEENT: Head is atraumatic, normocephalic. Pupils equal, round. Sclerae is anicteric. NECK: Supple. No JVD. No lymphadenopathy. No thyromegaly. LUNGS: Clear to auscultation. No wheezes or rhonchi. No intercostal retractions. HEART: Regular rate and rhythm. No murmur. ABDOMEN: Soft. Bowel sounds are present. No masses. No tenderness. EXTREMITIES: No pedal edema. No calf tenderness. NEUROLOGICAL: Patient is awake, alert and oriented x3. Cranial nerves 2 through 12 are grossly intact. ASSESSMENT AND PLAN 1. Acute inferior wall myocardial infarction status post heart catheterization with Dr. Foss finding intermediate to severe disease in the proximal left circumflex artery, not stented. Continue aspirin 81 mg daily, Lipitor 80 mg daily, Norvasc 5 mg daily, Plavix 75 mg daily. Did not have any intervention on medical management only. 2. Acute kidney injury on the improving: Most likely from the effect of the iodine along with hypoperfusion, obstructive uropathy. Discontinue IVF, consults with urology and nephrology appreciated. Status post cystoscopy left ureteroscopy laser lithotripsy and stent placement. 3. Hypertensive emergency. Patient started on Norvasc 5 mg daily, continue hydralazine 50 mg qid. Lopressor resumed at 25 mg twice daily. 4. Acute hypoxic respiratory failure requiring O2. VQ scan possible pulmonary embolism. Consult with pulmonary medicine, heparin drip started. 5. Hypothyroidism. Continue levothyroxine 88 g Tuesday through Tuesday and 100 g on Tuesday and Tuesday 6. Chronic kidney disease stage 3. Avoid nephrotoxic agents. Worsening kidney function require little bit more attention at this point. 7. Bradycardia, resolved 8. GI prophylaxis. Protonic 40 mg po daily. DISCHARGE PLAN Possible discharge on /Tuesday. Impression and plan of care have been directed as dictated by the signing physician. Micki Pinedo nurse practitioner acting as scribe for signing physician. Objective - Vital Signs Vital signs: Vital Signs Temp 98.1 F 12/03/20 08:07 Pulse 75 12/03/20 08:07 Resp 15 12/03/20 08:07 BP 131/64 12/03/20 08:07 Pulse Ox 95 12/03/20 10:00 Intake & Output 12/02/20 12/03/20 12/03/20 18:59 06:59 18:59 Intake Total 1718 500 790 Balance 1718 500 790 Weight 93.2 kg Intake: IV 40 Invasive Line 6 40 Intake, IV Titration 600 300 450 Amount Sodium Chloride 0.9% 1, 600 300 450 000 ml @ 75 mls/hr IV . [id number] [facility] Rx#:[id number] Oral 1078 200 340 Other: Voiding Method Toilet Toilet Bedside Commode # Voids 2 2 - Labs CBC & Chem 7: 12/02/20 08:20 12/03/20 11:22
[2020-12-03 14:45] LABS: Basophils # (A) 0.1 k/uL (0-0.2); Basophils % (A) 1 %; Eosinophils # (A) 0.3 k/uL (0-0.7); Eosinophils % (A) 3 %; HCT 41.8 % (34.0-46.0); HGB 13.8 gm/dL (11.4-16.0); Lymphocytes # (A) 0.9 k/uL (1.0-4.8); Lymphocytes % (A) 9 %; MCH 31.3 pg (25.0-35.0); MCHC 32.9 g/dL (31.0-37.0); Mean Platelet Volume 8.1; Monocytes # (A) 1.1 k/uL (0-1.0); Monocytes % (A) 11 %; Neutrophils # (A) 7.6 k/uL (1.3-7.7); Neutrophils % (A) 74 %; Platelet Count 255 k/uL (150-450); RDW 13.1 % (11.5-15.5); WBC 10.2 k/uL (3.8-10.6)
[2020-12-03 15:10] LABS: INR 1.1 (<1.2); Prothrombin Time 11.1 sec (9.0-12.0)
[2020-12-03] MEDS: HEPARIN SOD,PORK IN 0.45% NACL 25,000 UNIT in 0.45% NACL 1 250ML.BAG IV SCH (15:50)
--- NOTE | 2020-12-03 16:14 | P.PN ---
Subjective This is a 70-year-old female patient with hypertension and dyslipidemia who we consulted to see for further evaluation of chest discomfort and possible acute ST segment elevation myocardial infarction. 11/26/2020: She underwent an emergent heart catheterization and was found to have intermediate to severe disease involving the proximal left circumflex coronary artery but the right coronary artery was not well opacified in spite of using multiple diagnosed think and guiding catheters. The procedure was performed from the right common femoral artery and ended without any complication. US kidneys/renal and bladder- Left sided hydronephrosis, no significant renal atrophy CT abdomen and pelvis revealed 7mm calculus in norm distal third left ureter with moderate obstructive uropathy. 12/01/2020: Patient underwent cystoscopy left ureteroscopy laser lithotripsy and stent placement 12/02/2020 Patient examined this morning at the bedside, sitting up in chair. Patient denies chest pain or pressure. She denies shortness of breath. BP 125/79, heart rate 79, maintaining oxygen saturation is on room air, afebrile. Telemetry reveiwed, patient sinus rhythm HR 70s-80s. Laboratory data reviewed, WBC 13.3 hemoglobin 14.6 platelets 194 sodium 136, potassium 3.9, serum creatinine 2.41 (improving from yesterday 3.66), BUN 35. Patient is currently being maintained on amlodipine 5mg daily, aspirin 81 mg daily, atorvastatin 80 mg daily, Plavix 7 5 mg daily, hydralazine 50 mg 4 times a day, metoprolol titrate 25 mg twice a day 12/03/2020: Patient seen and examined this point bedside, sitting up in chair. Patient having shortness of breath when lying flat, and also minimal with activity. Patient has been hypoxic on room air, now requiring oxygen to maintain saturations. Patient's oxygen saturation is 72% on room air overnight. Patient requiring 4 L nasal cannula to maintain oxygen saturations above 92%. Attempted to wean oxygen today and patient's oxygen saturations are 87% on room air. Blood pressure 103/57, heart rate 75, afebrile. Left ear reviewed, sodium 138, potassium 3.6, renal function improving with serum creatinine 1.82 (2.41 yesterday), BUN 29. Chest x-ray today revealed bibasal infiltrates someway to prior exam. Patient underwent VQ scan todayfindings compatible with perfusion defects. Cannot give probably due to lack ventilation images. Pulmonary embolism not excluded PHYSICAL EXAM: VITAL SIGNS: Reviewed. GENERAL: Well-developed in no acute distress. NECK: Supple. No JVD or thyromegaly LUNGS: Respirations even and unlabored. Lungs with some fine crackles in the right lower base. Other lung garcia clear to auscultation bilaterally. HEART: Regular rate and rhythm. S1 and S2 heard. EXTREMITIES: Normal range of motion. No clubbing or cyanosis. Peripheral pulses intact. No lower extremity edema. R femoral site, clean dry and intact, no hematoma ASSESSMENT: Acute inferior wall STEMI, unable to perform angioplasty due to inability to visualize right coronary artery Acute on Chronic Kidney Disease Hypertension Hypothyroidism PLAN: Patient started on heparin drip for possible pulmonary embolism (per VQ scan results above) Will obtain repeat 2D echo to evaluate for RV strain and Left to Right Shunt Continue current cardiac medications- amlodipine 5mg daily, aspirin 81 mg daily, atorvastatin 80 mg daily, Plavix 75 mg daily, hydralazine 50 mg QID, metoprolol titrate 25 mg BID Continue telemetry monitoring Nephrology following Urology following Continue to monitor kidney function Further recommendations based on clinical course Nurse practitioner note has been reviewed by physician. Signing provider agrees with the documented findings, assessment, and plan of care. Objective - Vital Signs Vital signs: Vital Signs Temp 98.1 F 12/03/20 08:07 Pulse 75 12/03/20 13:21 Resp 18 12/03/20 13:21 BP 103/57 12/03/20 13:21 Pulse Ox 87 L 12/03/20 13:21 Intake & Output 12/02/20 12/03/20 12/03/20 18:59 06:59 18:59 Intake Total 1726 879 7299 Balance 3713 814 6338 Weight 93.2 kg 93.2 kg Intake: IV 40 Invasive Line 6 40 Intake, IV Titration 600 300 450 Amount Sodium Chloride 0.9% 1, 600 300 450 000 ml @ 75 mls/hr IV . [id number] [facility] Rx#:[id number] Oral 1078 200 580 Other: Voiding Method Toilet Toilet Bedside Commode # Voids 2 2 - Labs CBC & Chem 7: 12/03/20 14:00 12/03/20 11:22 Labs: Abnormal Lab Results - Last 24 Hours (Table) 12/03/20 12/03/20 Range/Units 11:22 14:00 Lymphocytes # 0.9 L (1.0-4.8) k/uL Monocytes # 1.1 H (0-1.0) k/uL BUN 29 H (7-17) mg/dL Creatinine 1.82 H (0.52-1.04) mg/dL Glucose 113 H (74-99) mg/dL
[2020-12-03 16:50] LABS: Glucose,Whole Blood 111 mg/dL (75-99)
--- NOTE | 2020-12-03 17:45 | P.CNPUL ---
History of Present Illness Consult date: 12/03/20 Requesting physician: Jhon Lopez Reason for consult: dyspnea, hypoxemia Chief complaint: Chest pain History of present illness: This is a very pleasant 70-year-old female patient with a known history of hypothyroidism, chronic tobacco dependence, hypertension. She presented here to the emergency room on 11/26/2020 with complaints of chest pain. He was found to have an acute inferior wall myocardial infarction and had undergone heart catheterization with intermediate to severe disease involving the left circumflex artery, not distended. To be treated medically. She also was found to have acute kidney injury, hypertension. She had developed acute hypoxic respiratory failure and a VQ scan could not completely rule out pulmonary embolism. We were consulted today for the same. She was 87% O2 saturation on room air. 95% on 2 L. Presently she is sitting up in a chair at the bedside. Awake and alert in no acute distress. No chest pain currently. No cough or congestion. No hemoptysis. White count 10.2. Hemoglobin 13.8. Platelet count 255. Sodium 138. Potassium 3.6. Creatinine 1.82. Guillen virus not detected. She is currently on a heparin drip. She received Lasix 20 mg IVP 1 this morning. Chest x-ray reveals bibasilar infiltrates. Similar compared to previo us. VQ scan revealed patchy peripheral reduced uptake involving the lungs bilaterally. Findings compatible with perfusion defect. Could not obtain ventilation images. Pulmonary embolism could not be excluded. Review of Systems REVIEW OF SYSTEMS: CONSTITUTIONAL: Denies any recent significant weight loss or weight gain. EYES: Denies change in vision. EARS, NOSE, MOUTH, THROAT: Denies headaches, denies sore throat. CARDIOVASCULAR: Positive for chest pain, no palpitations or syncopal episodes. RESPIRATORY: Positive for shortness of breath, cough, congestion no hemoptysis. GASTROINTESTINAL: Positive for heartburn. Denies change in appetite, denies abdominal pain GENITOURINARY: Denies hematuria, denies infections. MUSKULOSKELETAL: Denies pain, denies swelling. INTEGUMENTARY: Denies rash, denies eczema. NEUROLOGICAL: Denies recent memory loss, no recent seizure activity. PSYCHIATRIC: Denies anxiety, denies depression. HEMATOLOGIC/LYMPHATIC: Denies anemia, denies enlarged lymph nodes. Past Medical History Past Medical History: Hypertension, Thyroid Disorder Additional Past Medical History / Comment(s): FRACTURE LEFT ARM, kidney stones History of Any Multi-Drug Resistant Organisms: None Reported Past Surgical History: Cholecystectomy, Hysterectomy Additional Past Surgical History / Comment(s): BILATERAL OOPHORECTOMY, extracorporeal shockwave lithotripsy Past Anesthesia/Blood Transfusion Reactions: No Reported Reaction Smoking Status: Current every day smoker - Past Family History Mother Daughter(s) Family Medical History: Cancer Medications and Allergies Home Medications Medication Instructions Recorded Confirmed Type Levothyroxine Sodium [Synthroid] 88 mcg PO SUTUTHSA 02/24/15 11/26/20 History Aspirin 81 mg PO DAILY 02/26/15 11/26/20 History hydrALAZINE HCL [Apresoline] 50 mg PO TID 02/26/15 11/26/20 History Cholecalciferol (Vitamin D3) 125 mcg PO DAILY 11/26/20 11/26/20 History [Vitamin D3 (5000 Iu)] Fish Oil/Dha/Epa [Fish Oil 1,200 1 cap PO DAILY 11/26/20 11/26/20 History mg Fish Oil] Levothyroxine Sodium [Synthroid] 100 mcg PO MOWEFR 11/26/20 11/26/20 History Vitamin B12/Folate & B6 Sl 1 tab PO DAILY 11/26/20 11/26/20 History Atorvastatin [Lipitor] 80 mg PO DAILY #30 tab 11/29/20 Rx Clopidogrel [Plavix] 75 mg PO DAILY #30 tab 11/29/20 Rx Furosemide [Lasix] 20 mg PO DAILY #30 tab 11/29/20 Rx Metoprolol Tartrate [Lopressor] 25 mg PO BID #60 tab 11/29/20 Rx Nitroglycerin Sl Tabs [Nitrostat] 0.4 mg SUBLINGUAL Q5M PRN #25 tab 11/29/20 Rx Pantoprazole [Protonix] 40 mg PO AC-BRKFST #30 tablet. 11/29/20 Rx amLODIPine [Norvasc] 5 mg PO DAILY #30 tab 11/29/20 Rx bisacodyL [Dulcolax] 5 mg PO BID PRN tablet. 11/29/20 Rx Allergies Allergy/AdvReac Type Severity Reaction Status Date / Time NITRILE GLOVES Allergy Rash/Hives-SYSTEMIC Uncoded 11/26/20 07:11 REACTION Physical Exam Vitals: Vital Signs Temp Pulse Pulse Resp BP Pulse Ox 12/03/20 13:21 75 18 103/57 87 L 12/03/20 10:00 95 12/03/20 08:07 98.1 F 75 15 131/64 95 12/03/20 08:00 15 12/03/20 04:00 77 17 133/77 95 12/03/20 01:04 73 18 12/02/20 23:04 97.9 F 73 18 116/61 92 L 12/02/20 20:05 18 92 L 12/02/20 20:00 98.9 F 79 18 126/66 72 L Intake and Output 12/03/20 12/03/20 12/03/20 06:59 14:59 22:59 Intake Total 250 1030 Output Total 1800 Balance 250 1030 -1800 Intake: Intake, IV Titration 150 450 Amount Sodium Chloride 0.9% 1, 150 450 000 ml @ 75 mls/hr IV . [id number] [facility] Rx#:[id number] Oral 100 580 Output: Urine 1800 Other: Voiding Method Toilet Bedside Commode # Voids 2 2 Weight 93.2 kg 93.2 kg GENERAL EXAM: Alert, very pleasant 70-year-old female patient, up in a chair at the bedside, and 2 L nasal cannula, comfortable in no apparent distress. HEAD: Normocephalic. EYES: Normal reaction of pupils, equal size. NOSE: Clear with pink turbinates. THROAT: No erythema or exudates. NECK: No masses, no JVD. CHEST: No chest wall deformity. LUNGS: Equal air entry with crackles in the bilateral posterior bases. CVS: S1 and S2 normal with no audible murmur, regular rhythm. ABDOMEN: No hepatosplenomegaly, normal bowel sounds, no guarding or rigidity. SPINE: No scoliosis or deformity SKIN: No rashes CENTRAL NERVOUS SYSTEM: No focal deficits, tone is normal in all 4 extremities. EXTREMITIES: There is no peripheral edema. No clubbing, no cyanosis. Peripheral pulses are intact. Results - Laboratory Findings CBC and BMP: 12/03/20 14:00 12/03/20 11:22 PT/INR, D-dimer PT 11.1 sec (9.0-12.0) 12/03/20 14:00 INR 1.1 (<1.2) 12/03/20 14:00 Abnormal lab findings: Abnormal Labs 11/26/20 11/26/20 11/26/20 06:50 07:02 11:41 WBC Hgb 16.4 H Hct 51.0 H Neutrophils # Lymphocytes # Monocytes # Sodium Chloride Carbon Dioxide BUN 25 H Creatinine 1.34 H Glucose 143 H POC Glucose (mg/dL) AST ALT Troponin I 0.618 H* Total Protein Albumin Urine Appearance Urine Protein Ur Leukocyte Esterase Urine RBC Urine WBC Amorphous Sediment Urine Bacteria Urine Mucus 11/26/20 11/26/20 11/27/20 12:05 19:44 04:28 WBC Hgb Hct Neutrophils # Lymphocytes # Monocytes # Sodium Chloride Carbon Dioxide BUN Creatinine Glucose POC Glucose (mg/dL) 138 H AST ALT Troponin I 13.200 H* 37.000 H* Total Protein Albumin Urine Appearance Urine Protein Ur Leukocyte Esterase Urine RBC Urine WBC Amorphous Sediment Urine Bacteria Urine Mucus 11/27/20 11/27/20 11/29/20 04:28 04:28 10:41 WBC 13.8 H Hgb Hct 49.0 H Neutrophils # 10.8 H Lymphocytes # Monocytes # 1.2 H Sodium 132 L Chloride 93 L Carbon Dioxide 31 H 32 H BUN 22 H 36 H Creatinine 1.36 H 3.09 H Glucose 134 H 123 H POC Glucose (mg/dL) AST ALT Troponin I Total Protein Albumin Urine Appearance Urine Protein Ur Leukocyte Esterase Urine RBC Urine WBC Amorphous Sediment Urine Bacteria Urine Mucus 11/29/20 11/30/20 12/01/20 16:19 07:00 07:44 WBC 11.5 H Hgb Hct Neutrophils # Lymphocytes # Monocytes # Sodium 133 L Chloride 94 L Carbon Dioxide 33 H BUN 40 H Creatinine 3.73 H Glucose 114 H POC Glucose (mg/dL) AST ALT Troponin I Total Protein Albumin Urine Appearance Cloudy H Urine Protein Trace H Ur Leukocyte Esterase Moderate H Urine RBC 22 H Urine WBC 24 H Amorphous Sediment Rare H Urine Bacteria Rare H Urine Mucus Rare H 12/01/20 12/02/20 12/02/20 07:44 08:20 08:20 WBC 13.3 H Hgb Hct Neutrophils # Lymphocytes # Monocytes # Sodium 134 L 136 L Chloride Carbon Dioxide BUN 43 H 35 H Creatinine 3.66 H 2.41 H Glucose 109 H 100 H POC Glucose (mg/dL) AST 46 H 53 H ALT 38 H 35 H Troponin I Total Protein 6.1 L Albumin 3.2 L Urine Appearance Urine Protein Ur Leukocyte Esterase Urine RBC Urine WBC Amorphous Sediment Urine Bacteria Urine Mucus 12/03/20 12/03/20 12/03/20 11:22 14:00 16:46 WBC Hgb Hct Neutrophils # Lymphocytes # 0.9 L Monocytes # 1.1 H Sodium Chloride Carbon Dioxide BUN 29 H Creatinine 1.82 H Glucose 113 H POC Glucose (mg/dL) 111 H AST ALT Troponin I Total Protein Albumin Urine Appearance Urine Protein Ur Leukocyte Esterase Urine RBC Urine WBC Amorphous Sediment Urine Bacteria Urine Mucus - Diagnostic Findings Chest x-ray: image reviewed Assessment and Plan Assessment: 1 Acute inferior wall myocardial infarction status post heart catheterization which revealed intermediate to severe disease involving the proximal left ci rcumflex artery, unable to be stented. 2 Acute hypoxic respiratory failure. VQ scan not completed, PE not excluded, currently on a heparin drip 3 Acute kidney injury secondary to left ureteral calculus with obstruction, status post double-J catheter placement on 12/01/2020 4 Hypertension 5 Hypothyroidism 6 Chronic kidney disease stage III Plan: The patient was seen and evaluated by Dr. Barros V/Q scan, labs reviewed We'll order Doppler of the bilateral lower extremities Remains on heparin drip Titrate the O2 as tolerated We will continue to follow and make further recommendations based on her clinical status I, the cosigning physician, performed a history & physical examination of the patient. Lungs sounds with crackles in the bilateral posterior bases. Maintaining good O2 saturations in the 90s on 2 L/m per nasal cannula. I discussed the assessment and plan of care with my nurse practitioner, Roxie Childress. I attest to the above consultation as dictated by her. Time with Patient: Greater than 30
--- NOTE | 2020-12-03 19:37 | PN ---
PROGRESS NOTE The patient is seen for followup for acute kidney injury secondary to acute tubular necrosis and an element of obstructive uropathy. Her renal function has been improving. Patient is status post cystoscopy and removal of left ureteral calculus and placement of double-J catheter. This morning it was noted that patient's O2 sats were slightly lower and her oxygen was increased to 4 L. She has been on IV fluids. Therefore, I will discontinue the IV fluids and I will give her a dose of IV Lasix. We will also obtain a chest x-ray. ASSESSMENT: 1. Hypoxia as stated above. Check chest x-ray and IV fluids and give one dose of IV Lasix. 2. Left ureteral calculus status post cystoscopy and double-J catheter placement and removal of stone. 3. ST-elevation IN status post cardiac catheterization. 4. Hypertension with chronic kidney disease. PLAN: Discontinue IV fluids. Check chest x-ray. Lasix IV x1. MMODL / IJN: [id number] /
[2020-12-03] MEDS: CHOLECALCIFEROL 25 MCG (1000 IU) TABLET PO SCH (20:42)
[2020-12-03 20:49] LABS: Glucose,Whole Blood 145 mg/dL (75-99)
--- NOTE | 2020-12-03 23:56 | US ---
EXAMINATION TYPE: US venous doppler duplex LE BI DATE OF EXAM: 12/03/2020 4:46 PM COMPARISON: NONE CLINICAL HISTORY: Hypoxemia. numb legs, no swelling, no h/o dvt SIDE PERFORMED: bilateral TECHNIQUE: The lower extremity deep venous system is examined utilizing real time linear array sonog reyes with graded compression, doppler sonography and color-flow sonography. VESSELS IMAGED: Common Femoral Vein Deep Femoral Vein Greater Saphenous Vein * Femoral Vein Popliteal Vein Small Saphenous Vein * Proximal Calf Veins (* superficial vessels) Right Leg: Negative for DVT Left Leg: Negative for DVT IMPRESSION: No evidence of deep vein thrombosis in both legs.
[2020-12-04 05:05] VITALS: RESP 16
[2020-12-04 06:00] LABS: Glucose,Whole Blood 93 mg/dL (75-99)
[2020-12-04] MEDS: PANTOPRAZOLE 40 MG TABLET PO SCH (06:34)
[2020-12-04] MEDS: LEVOTHYROXINE 88 MCG TAB PO SCH (06:34)
[2020-12-04] MEDS: LEVOTHYROXINE 100 MCG TAB PO SCH (06:34)
[2020-12-04 07:18] LABS: Basophils % (A) 1 %; Eosinophils # (A) 0.4 k/uL (0-0.7); Eosinophils % (A) 4 %; HCT 42.5 % (34.0-46.0); HGB 13.6 gm/dL (11.4-16.0); Lymphocytes # (A) 1.5 k/uL (1.0-4.8); Lymphocytes % (A) 15 %; MCHC 32.1 g/dL (31.0-37.0); MCV 93.5 fL (80.0-100.0); Mean Platelet Volume 8.2; Monocytes # (A) 1.3 k/uL (0-1.0); Monocytes % (A) 13 %; Neutrophils # (A) 6.3 k/uL (1.3-7.7); Neutrophils % (A) 65 %; Platelet Count 260 k/uL (150-450); RBC 4.54 m/uL (3.80-5.40); RDW 12.9 % (11.5-15.5); WBC 9.8 k/uL (3.8-10.6)
[2020-12-04 07:58] VITALS: TEMP 97.8
[2020-12-04] MEDS: METOPROLOL TARTRATE 25 MG TAB PO SCH (08:09)
[2020-12-04] MEDS: ASPIRIN 81 MG PO SCH (08:09)
[2020-12-04] MEDS: CLOPIDOGREL 75 MG TAB PO SCH (08:09)
[2020-12-04] MEDS: hydrALAZINE HCL 50 MG TAB PO SCH ×2 (08:09→12:38)
[2020-12-04] MEDS: amLODIPine 5 MG TAB PO SCH (08:09)
[2020-12-04] MEDS: ATORVASTATIN 80 MG TAB PO SCH (08:09)
[2020-12-04] MEDS: B6 PO SCH (08:10)
[2020-12-04] MEDS: FOLATE PO SCH (08:10)
[2020-12-04] MEDS: NON FORMULARY DRUG (Fish Oil/Dha/Epa [Fish Oil 1,200 Mg Fish Oil] 1 EACH Capsule) PO SCH (08:10)
[2020-12-04] MEDS: VITAMIN B12 PO SCH (08:10)
[2020-12-04 08:41] LABS: Calcium 8.9 mg/dL (8.4-10.2); Potassium 3.3 mmol/L (3.5-5.1)
[2020-12-04] MEDS: HEPARIN SOD,PORK IN 0.45% NACL 25,000 UNIT in 0.45% NACL 1 250ML.BAG IV SCH (09:21)
[2020-12-04] MEDS ORDERED: POTASSIUM CHLORIDE ER 20 MEQ TAB.ER PO STA (09:35)
--- NOTE | 2020-12-04 10:54 | ECHOF ---
Referral Reason:new hypoxia MEASUREMENTS -------- HEIGHT: 160.0 cm WEIGHT: 93.0 kg BP: RVIDd: 2.9 cm (< 3.3) TR Vmax: 2.04 m/s TR maxP.70 mmHg RAP: 5.00 mmHg RVSP: 21.70 mmHg FINDINGS -------- Sinus rhythm. Pt had echo 4,2 & : Limited study for bubble study no shunt noted. The right ventricle is normal in size and function. CONCLUSIONS -------- 1. Pt had echo 4,2 & : Limited study for bubble study no shunt noted. 2. The right ventricle is normal in size and function. tds, [employer]IVETER: Nishi Monahan RDCS
[2020-12-04] MEDS ORDERED: APIXABAN 5 MG TAB PO SCH (11:00)
[2020-12-04 11:51] LABS: Glucose,Whole Blood 106 mg/dL (75-99)
--- NOTE | 2020-12-04 12:20 | P.DS ---
Providers Date of admission: 11/26/20 06:49 Expected date of discharge: 12/04/20 Attending physician: Jhon Lopez MD Consults: 11/26/20 06:47 Consult Physician Urgent Consulting Provider: Quincy Thornton Consult Reason/Comments: stemi Do you want consulting provider notified?: Yes 11/29/20 11:41 Consult Physician Routine Consulting Provider: Tommy Razo Consult Reason/Comments: acute renal failure Do you want consulting provider notified?: Yes 11/30/20 09:24 Consult Physician Routine Consulting Provider: Bridger Ray Consult Reason/Comments: Obstructive Uropathy Do you want consulting provider notified?: Yes 12/03/20 13:23 Consult Physician Routine Consulting Provider: Meghana Neal Consult Reason/Comments: Pe Do you want consulting provider notified?: Yes Primary care physician: Genesis Moore [facility] Course: HISTORY OF PRESENT ILLNESS This is a 70-year-old female patient of Dr. Moore with past medical history of hypertension, hypothyroidism, active tobacco use. Patient was last seen in the office 2 days ago at that time had lab work done and did not have any complaints of chest pain. Patient states she had sudden onset of chest pain at 550 this morning and thought it was heartburn-type and tightening in her chest. She also had sweats and shortness of breath. She came into [facility] emergency center for evaluation and EKG by EMS was concerning for ST elevated myocardial infarction and underwent an emergent heart catheterization with Dr. 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 Aortic root angiogram revealed fairly calcified right coronary artery which probably is occluded. Potentially down the line she to undergo a CTA for further clarification. she did not undergo angioplasty on the left circumflex coronary artery because the patient was chest pain-free throughout the procedure. blood pressure was elevated throughout procedure and Norvasc was added and recommended discontinuing the metoprolol due to bradycardia. Patient is seen today on the extended care unit. 11/27: Echocardiogram reveals EF of 60-65% with moderate concentric left ventricle hypertrophy, mild tricuspid regurgitation, suboptimal study. EKG was sinus bradycardia and poor R-wave progression. Cardiology has added Plavix to her regime and has resumed Lopressor 25 mg twice daily. Plan is to transfer out of ICU today. Patient has been afebrile, heart rate 66, blood pressure 145/71, pulse ox 94% on room air. residential monitor is a sinus rhythm. Patient is stating that she has a little tightness in her chest. Yesterday she had pain in her left arm and face but none today. She is feeling a little short of breath. Repeat blood work reveals WBC 13.8, hemoglobin 15.8, platelet count 197. Electrolytes are all normal except for CO2 of 31, BUN 22 and creatinine 1.36 patient's baseline. Blood sugar 134. Triglycerides 115, cholesterol 176, LDL 93, HDL 60. 11/28: Dr. Alvarado reevaluated patient with plan for continued medical management and monitor over the next 1-2 nights with concern for complication. Patient states she's had some nausea. No chest pain. No lightheadedness or dizziness. She has been afebrile, heart rate 76, blood pressure 150/85, pulse ox 94% on room air. Basic chemistry panel ordered for tomorrow. Limited echocardiogram has been done today and report is pending. 3: Patient was supposed to be discharged home today surprisingly creatinine is up to 3.09 with BUN of 36 will be seen nephrology and most likely be going for Route renal ultrasound along with hydration repeat BUN/creatinine tomorrow before deciding is any patient's home. 11/30: Patient is doing much better today clinically except kidney function much worse ultrasound showed obstructive uropathy of the left side with atrophy of the right side sinus kidney stone, we will consult urology, still seen nephrology no need for hemodialysis at this point this is probably an underlying chronic kidney disease and affect of the iodine dye. 12/01: Repeat blood work reveals WBC 11.5. Na 134. BUN 43, creat 3.66. AST 46, ALT 38. Patient followed by Dr. Ray with plan for cystoscopy left ureteroscopy laser lithotripsy and stent placement. She has been afebrile, HR 81, BP 140/70, PO 94% on RA. Patient is also followed by nephrology. Plan to continue IVF currently at 75 cc/hr. Urine output is 800 ml over 24 hours. No Nausea, vomiting, diarrhea. She continues to have left flank discomfort. 12/02: Patient has been afebrile, heart rate 79, blood pressure 125/79, pulse ox 94% on 2 L nasal cannula. Repeat blood work reveals WBC 13.3. Hemoglobin 14.6. Sodium 136 otherwise electrolytes are normal. Potassium is 3.9. BUN 35 and creatinine 2.41. Blood sugar 100. AST 53 and AST 65. Patient is currently on IV fluids at 75 mL per hour followed by nephrology. Anticipate continued improvement of her renal function by tomorrow. She is status post cystoscopy, left ureteroscopy with laser lithotripsy, placement of 624 double-J catheter with Dr. Ray. Patient has been rechecked by urology and cleared for discharge with planned follow-up Dr. Ray in the office in a week. Vision is anxious to go home but willing to stay for another day. 12/03: Patient has had several episodes of descending down into the 70s. She is currently turned down to 2 L nasal cannula. Pulse ox 95% on 2 L. Patient dropped down to 87% on room air. Patient seems to be asymptomatic with this. VQ scan reveals patchy peripheral reduced uptake involving the lungs bilaterally. Findings compatible perfusion defects. Cannot give a probability due to lack of ventilation images. Pulmonary embolism not excluded. Consult added for pulmonary medicine and patient started on heparin drip. Repeat chest x-ray reveals bibasilar infiltrates similar to prior exam. Renal function continues to improve slowly with BUN 29 creatinine 1.82. She received 1 dose of IV Lasix 20 mg this morning ordered by nephrology. 12/04: Patient has been seen by pulmonary medicine rule out or rule and pulmonary embolism. Ultrasound of bilateral lower extremities negative for DVT. A repeat limited echocardiogram has been ordered by cardiology. Pulse ox 95% on room air. Patient's been afebrile, heart rate 84, blood pressure 126/63. CBC is unremarkable. Potassium 3.3 and will be replaced. BUN 26 and creatinine 1.64, CO2 32. Heparin drip will be transitioned to oral eliquis. Perception has been sent to her pharmacy. Patient will be discharged home today once cleared by pulmonary medicine. ASSESSMENT AND PLAN 1. Acute inferior wall myocardial infarction status post heart catheterization with Dr. Foss finding intermediate to severe disease in the proximal left circumflex artery, not stented. Did not have any intervention on medical management only. 2. Acute kidney injury. 3. Hypertensive emergency. 4. Acute hypoxic respiratory failure requiring O2. VQ scan possible pulmonary embolism. 5. Hypothyroidism. 6. Chronic kidney disease stage 3. 7. Bradycardia, resolved DISCHARGE PLAN Possible discharge on /Tuesday. Impression and plan of care have been directed as dictated by the signing physician. Micki Pinedo nurse practitioner acting as scribe for signing physician. Patient Condition at Discharge: Good Plan - Discharge Summary Discharge Rx Participant: Yes New Discharge Prescriptions: New bisacodyL [Dulcolax] 5 mg PO BID PRN tablet. PRN Reason: Constipation Furosemide [Lasix] 20 mg PO DAILY #30 tab Atorvastatin [Lipitor] 80 mg PO DAILY #30 tab Metoprolol Tartrate [Lopressor] 25 mg PO BID #60 tab Clopidogrel [Plavix] 75 mg PO DAILY #30 tab Pantoprazole [Protonix] 40 mg PO AC-BRKFST #30 tablet. hydrALAZINE HCL [Apresoline] 50 mg PO QID #120 tab Nitroglycerin Sl Tabs [Nitrostat] 0.4 mg SUBLINGUAL Q5M PRN #25 tab PRN Reason: Chest Pain amLODIPine [Norvasc] 5 mg PO DAILY #30 tab Apixaban [Eliquis Starter Pack (for VTE)] 0 mg PO DIRECTED 30 Days #1 pack Continue Levothyroxine Sodium [Synthroid] 88 mcg PO SUTUTHSA Aspirin 81 mg PO DAILY Levothyroxine Sodium [Synthroid] 100 mcg PO MOWEFR Fish Oil/Dha/Epa [Fish Oil 1,200 mg Fish Oil] 1 cap PO DAILY Cholecalciferol (Vitamin D3) [Vitamin D3 (5000 Iu)] 125 mcg PO DAILY Vitamin B12/Folate & B6 Sl 1 tab PO DAILY Discontinued hydrALAZINE HCL [Apresoline] 50 mg PO TID Metoprolol Tartrate [Lopressor] 100 mg PO BID Discharge Medication List Levothyroxine Sodium [Synthroid] 88 mcg PO SUTUTHSA 02/24/15 [History] Aspirin 81 mg PO DAILY 02/26/15 [History] Cholecalciferol (Vitamin D3) [Vitamin D3 (5000 Iu)] 125 mcg PO DAILY 11/26/20 [History] Fish Oil/Dha/Epa [Fish Oil 1,200 mg Fish Oil] 1 cap PO DAILY 11/26/20 [History] Levothyroxine Sodium [Synthroid] 100 mcg PO MOWEFR 11/26/20 [History] Vitamin B12/Folate & B6 Sl 1 tab PO DAILY 11/26/20 [History] Atorvastatin [Lipitor] 80 mg PO DAILY #30 tab 11/29/20 [Rx] Clopidogrel [Plavix] 75 mg PO DAILY #30 tab 11/29/20 [Rx] Furosemide [Lasix] 20 mg PO DAILY #30 tab 11/29/20 [Rx] Metoprolol Tartrate [Lopressor] 25 mg PO BID #60 tab 11/29/20 [Rx] Nitroglycerin Sl Tabs [Nitrostat] 0.4 mg SUBLINGUAL Q5M PRN #25 tab 11/29/20 [Rx] Pantoprazole [Protonix] 40 mg PO AC-BRKFST #30 tablet. 11/29/20 [Rx] amLODIPine [Norvasc] 5 mg PO DAILY #30 tab 11/29/20 [Rx] bisacodyL [Dulcolax] 5 mg PO BID PRN tablet. 11/29/20 [Rx] Apixaban [Eliquis Starter Pack (for VTE)] 0 mg PO DIRECTED 30 Days #1 pack 12/04/20 [Rx] hydrALAZINE HCL [Apresoline] 50 mg PO QID #120 tab 12/04/20 [Rx] Follow up Appointment(s)/Referral(s): Genesis Moore MD [Primary Care Provider] - 12/05/20 10:00 am (Phone call visit) Sky Foss MD [STAFF PHYSICIAN] - 1 Week (Spoke to ward clerk. Office will call with appointment time) Roxie Childress NPC [Nurse Practitioner] - 12/24/20 3:15 pm (Tuesday -ward clerk is asking that you arrive at 2:45pm) Bridger Ray MD [STAFF PHYSICIAN] - 12/10/20 11:20 am (Tuesday) Patient Instructions/Handouts: *Surgery [facility] - After Heart Catheterization - Snagger Instructions, Pulmonary Embolism (DC), How to Stop Smoking (DC), Safe Use of Anticoagulants (DC) Discharge Disposition: HOME SELF-CARE
[2020-12-04 12:38] VITALS: BP 144/70; PULSE 74
--- NOTE | 2020-12-04 14:38 | P.PN ---
Subjective Progress Note Date: 12/04/20 Principal diagnosis: Shortness of breath, hypoxemia This is a very pleasant 70-year-old female patient with a known history of hypothyroidism, chronic tobacco dependence, hypertension. She presented here to the emergency room on 11/26/2020 with complaints of chest pain. He was found to have an acute inferior wall myocardial infarction and had undergone heart catheterization with intermediate to severe disease involving the left circumflex artery, not distended. To be treated medically. She also was found to have acute kidney injury, hypertension. She had developed acute hypoxic respiratory failure and a VQ scan could not completely rule out pulmonary embolism. We were consulted today for the same. She was 87% O2 saturation on room air. 95% on 2 L. Presently she is sitting up in a chair at the bedside. Awake and alert in no acute distress. No chest pain currently. No cough or congestion. No hemoptysis. White count 10.2. Hemoglobin 13.8. Platelet count 255. Sodium 138. Potassium 3.6. Creatinine 1.82. Guillen virus not detected. She is currently on a heparin drip. She received Lasix 20 mg IVP 1 this morning. Chest x-ray reveals bibasilar infiltrates. Similar compared to previous. VQ scan revealed patchy peripheral reduced uptake involving the lungs bilaterally. Findings compatible with perfusion defect. Could not obtain ventilation images. Pulmonary embolism could not be excluded. The patient is seen today 12/04/2020 follow-up on the selective care unit. Currently sitting up in a chair at the bedside. Awake and alert in no acute distress. Maintaining O2 saturations in the 90s on room air. She denies any shortness of breath, cough or congestion. No hemoptysis. Dopplers of the lower extremities were negative for DVT. She is now anticoagulated with Eliquis. Objective - Vital Signs Vital signs: Vital Signs Temp 97.8 F 12/04/20 07:58 Pulse 74 12/04/20 12:00 Resp 16 12/04/20 12:00 BP 144/70 12/04/20 12:00 Pulse Ox 93 L 12/04/20 12:00 Intake & Output 12/03/20 12/04/20 12/04/20 18:59 06:59 18:59 Intake Total 1030 259.757 332.920 Output Total 1800 600 Balance -770 -340.243 332.920 Weight 93.2 kg 91.2 kg Intake: Intake, IV Titration 450 141.757 92.920 Amount Heparin Sod,Pork in 0.45% 141.757 92.920 NaCl 25,000 unit In 0.45 % NaCl 1 250ml.bag @ 18 UNITS/KG/HR 16.776 mls/hr IV .[id number] POLO Rx#: [id number] Sodium Chloride 0.9% 1, 450 000 ml @ 75 mls/hr IV . [id number] POLO Rx#:[id number] Oral 580 118 240 Output: Urine 1800 600 Other: Voiding Method Bedside Commode Bedside Commode # Voids 2 4 # Bowel Movements 1 - Exam GENERAL EXAM: Alert, active, very pleasant 70-year-old female, on room air, in no apparent distress. HEAD: Normocephalic. EYES: Normal reaction of pupils, equal size. NOSE: Clear with pink turbinates. THROAT: No erythema or exudates. NECK: No masses, no JVD. CHEST: No chest wall deformity. LUNGS: Equal air entry with no crackles, wheeze, rhonchi or dullness. CVS: S1 and S2 normal with no audible murmur, regular rhythm. ABDOMEN: No hepatosplenomegaly, normal bowel sounds, no guarding or rigidity. SPINE: No scoliosis or deformity SKIN: No rashes CENTRAL NERVOUS SYSTEM: No focal deficits, tone is normal in all 4 extremities. EXTREMITIES: There is no peripheral edema. No clubbing, no cyanosis. Peripheral pulses are intact. - Labs CBC & Chem 7: 12/04/20 06:11 12/04/20 06:11 Labs: Abnormal Lab Results - Last 24 Hours (Table) 12/03/20 12/03/20 12/03/20 Range/Units 14:00 16:46 20:33 Lymphocytes # 0.9 L (1.0-4.8) k/uL Monocytes # 1.1 H (0-1.0) k/uL APTT (22.0-30.0) sec Potassium (3.5-5.1) mmol/L Carbon Dioxide (22-30) mmol/L BUN (7-17) mg/dL Creatinine (0.52-1.04) mg/dL Glucose (74-99) mg/dL POC Glucose (mg/dL) 111 H 145 H (75-99) mg/dL 12/03/20 12/04/20 12/04/20 Range/Units 22:49 06:11 06:11 Lymphocytes # (1.0-4.8) k/uL Monocytes # (0-1.0) k/uL APTT 135.9 H* 97.7 H (22.0-30.0) sec Potassium 3.3 L (3.5-5.1) mmol/L Carbon Dioxide 32 H (22-30) mmol/L BUN 26 H (7-17) mg/dL Creatinine 1.64 H (0.52-1.04) mg/dL Glucose 105 H (74-99) mg/dL POC Glucose (mg/dL) (75-99) mg/dL 12/04/20 12/04/20 Range/Units 06:11 11:48 Lymphocytes # (1.0-4.8) k/uL Monocytes # 1.3 H (0-1.0) k/uL APTT (22.0-30.0) sec Potassium (3.5-5.1) mmol/L Carbon Dioxide (22-30) mmol/L BUN (7-17) mg/dL Creatinine (0.52-1.04) mg/dL Glucose (74-99) mg/dL POC Glucose (mg/dL) 106 H (75-99) mg/dL Assessment and Plan Assessment: 1 Acute inferior wall myocardial infarction status post heart catheterization which revealed intermediate to severe disease involving the proximal left circumflex artery, unable to be stented. 2 Acute hypoxic respiratory failure. VQ scan not completed, PE not excluded, currently on a heparin drip 3 Acute kidney injury secondary to left ureteral calculus with obstruction, status post double-J catheter placement on 12/01/2020 4 Hypertension 5 Hypothyroidism 6 Chronic kidney disease stage III Plan: The patient was seen and evaluated by Dr. Barros Doppler of the lower extremities negative Stable and on room air Transition to [facility] Plan is for home today I, the cosigning physician, performed a history & physical examination of the patient. Lungs sounds clear. Maintaining good O2 saturations in the 90s on room air. I discussed the assessment and plan of care with my nurse practitioner, Roxie Childress. I attest to the above note as dictated by her.
--- NOTE | 2020-12-04 14:44 | P.PN ---
Subjective This is a 70-year-old female patient with hypertension and dyslipidemia who we consulted to see for further evaluation of chest discomfort and possible acute ST segment elevation myocardial infarction. 11/26/2020: She underwent an emergent heart catheterization and was found to have intermediate to severe disease involving the proximal left circumflex coronary artery but the right coronary artery was not well opacified in spite of using multiple diagnosed think and guiding catheters. The procedure was performed from the right common femoral artery and ended without any complication. US kidneys/renal and bladder- Left sided hydronephrosis, no significant renal atrophy CT abdomen and pelvis revealed 7mm calculus in norm distal third left ureter with moderate obstructive uropathy. 12/01/2020: Patient underwent cystoscopy left ureteroscopy laser lithotripsy and stent placement 12/02/2020 Patient examined this morning at the bedside, sitting up in chair. Patient denies chest pain or pressure. She denies shortness of breath. BP 125/79, heart rate 79, maintaining oxygen saturation is on room air, afebrile. Telemetry reveiwed, patient sinus rhythm HR 70s-80s. Laboratory data reviewed, WBC 13.3 hemoglobin 14.6 platelets 194 sodium 136, potassium 3.9, serum creatinine 2.41 (improving from yesterday 3.66), BUN 35. Patient is currently being maintained on amlodipine 5mg daily, aspirin 81 mg daily, atorvastatin 80 mg daily, Plavix 7 5 mg daily, hydralazine 50 mg 4 times a day, metoprolol titrate 25 mg twice a day 12/03/2020: Patient seen and examined this point bedside, sitting up in chair. Patient having shortness of breath when lying flat, and also minimal with activity. Patient has been hypoxic on room air, now requiring oxygen to maintain saturations. Patient's oxygen saturation is 72% on room air overnight. Patient requiring 4 L nasal cannula to maintain oxygen saturations above 92%. Attempted to wean oxygen today and patient's oxygen saturations are 87% on room air. Blood pressure 103/57, heart rate 75, afebrile. Left ear reviewed, sodium 138, potassium 3.6, renal function improving with serum creatinine 1.82 (2.41 yesterday), BUN 29. Chest x-ray today revealed bibasal infiltrates someway to prior exam. Patient underwent VQ scan todayfindings compatible with perfusion defects. Cannot give probably due to lack ventilation images. Pulmonary embolism not excluded - patient started on heparin drip 12/04/20: Patient shortness of breath has improved. BP 126/63, 84, afebrile, maintaining oxygen saturation on room air. Sodium 139, potassium 3.3, serum creatinine 1.64, BUN 26. Patient with no complaints at this time.Eager to go home PHYSICAL EXAM: VITAL SIGNS: Reviewed. GENERAL: Well-developed in no acute distress. NECK: Supple. No JVD or thyromegaly LUNGS: Respirations even and unlabored. Lungs with some fine crackles in the right lower base. Other lung garcia clear to auscultation bilaterally. HEART: Regular rate and rhythm. S1 and S2 heard. EXTREMITIES: Normal range of motion. No clubbing or cyanosis. Peripheral pulses intact. No lower extremity edema. R femoral site, clean dry and intact, no hematoma ASSESSMENT: Acute inferior wall STEMI, unable to perform angioplasty due to inability to visualize right coronary artery Acute on Chronic Kidney Disease Hypertension Hypothyroidism PLAN: Limited 2D echo with no evidence of RV strain and Left to Right Shunt. Patient being started Eliquis for PE, we will discontinue aspirin Continue current cardiac medications- amlodipine 5mg daily, atorvastatin 80 mg daily, Plavix 75 mg daily, hydralazine 50 mg QID, metoprolol titrate 25 mg BID From cardiology perspective patient is stable for discharge home. Patient should follow up with Dr. Foss within 1-2 weeks in the office for further management. Nurse practitioner note has been reviewed by physician. Signing provider agrees with the documented findings, assessment, and plan of care. Objective - Vital Signs Vital signs: Vital Signs Temp 97.8 F 12/04/20 07:58 Pulse 74 12/04/20 12:00 Resp 16 12/04/20 12:00 BP 144/70 12/04/20 12:00 Pulse Ox 93 L 12/04/20 12:00 Intake & Output 12/03/20 12/04/20 12/04/20 18:59 06:59 18:59 Intake Total 1030 259.757 332.920 Output Total 1800 600 Balance -770 -340.243 332.920 Weight 93.2 kg 91.2 kg Intake: Intake, IV Titration 450 141.757 92.920 Amount Heparin Sod,Pork in 0.45% 141.757 92.920 NaCl 25,000 unit In 0.45 % NaCl 1 250ml.bag @ 18 UNITS/KG/HR 16.776 mls/hr IV .[id number] POLO Rx#: [id number] Sodium Chloride 0.9% 1, 450 000 ml @ 75 mls/hr IV . [id number] POLO Rx#:[id number] Oral 580 118 240 Output: Urine 1800 600 Other: Voiding Method Bedside Commode Bedside Commode # Voids 2 4 # Bowel Movements 1 - Labs CBC & Chem 7: 12/04/20 06:11 12/04/20 06:11 Labs: Abnormal Lab Results - Last 24 Hours (Table) 12/03/20 12/03/20 12/03/20 Range/Units 14:00 16:46 20:33 Lymphocytes # 0.9 L (1.0-4.8) k/uL Monocytes # 1.1 H (0-1.0) k/uL APTT (22.0-30.0) sec Potassium (3.5-5.1) mmol/L Carbon Dioxide (22-30) mmol/L BUN (7-17) mg/dL Creatinine (0.52-1.04) mg/dL Glucose (74-99) mg/dL POC Glucose (mg/dL) 111 H 145 H (75-99) mg/dL 12/03/20 12/04/20 12/04/20 Range/Units 22:49 06:11 06:11 Lymphocytes # (1.0-4.8) k/uL Monocytes # (0-1.0) k/uL APTT 135.9 H* 97.7 H (22.0-30.0) sec Potassium 3.3 L (3.5-5.1) mmol/L Carbon Dioxide 32 H (22-30) mmol/L BUN 26 H (7-17) mg/dL Creatinine 1.64 H (0.52-1.04) mg/dL Glucose 105 H (74-99) mg/dL POC Glucose (mg/dL) (75-99) mg/dL 12/04/20 12/04/20 Range/Units 06:11 11:48 Lymphocytes # (1.0-4.8) k/uL Monocytes # 1.3 H (0-1.0) k/uL APTT (22.0-30.0) sec Potassium (3.5-5.1) mmol/L Carbon Dioxide (22-30) mmol/L BUN (7-17) mg/dL Creatinine (0.52-1.04) mg/dL Glucose (74-99) mg/dL POC Glucose (mg/dL) 106 H (75-99) mg/dL
--- NOTE | 2020-12-04 19:59 | PN ---
PROGRESS NOTE Patient is seen for followup for acute kidney injury. Overall, patient's renal function has improved significantly with creatinine down to 1.6 from peak of 3.7. Patient had low O2 saturations yesterday and she had a dose of IV Lasix. Perfusion lung V/Q scan could not rule out PE, and therefore Pulmonology was consulted. Heparin is now discontinued and patient is being discharged. She denies any shortness of breath and she will be maintained on low-dose loop diuretics. PHYSICAL EXAMINATION: On examination today, blood pressure is 126/63, heart rate 84 per minute. Patient is afebrile. EXAMINATION OF THE HEART: S1 and S2. EXAMINATION OF LUNGS: Bilateral breath sounds are heard. ABDOMEN: Soft, non-tender. Examination of lower extremities shows no evidence of edema. HUNTER exam is grossly intact. LABS: Sodium 139, potassium 3.3, chloride 98, BUN 26, creatinine 1.64, hemoglobin 13.6 g/dL. ASSESSMENT: 1. Acute kidney injury secondary to acute tubular necrosis and obstructive uropathy, currently improving. Patient had cardiac catheterization this admission. 2. Chronic kidney disease, stage 3. Baseline creatinine about 1.3 secondary to nephrosclerosis and nephrolithiasis. 3. ST-elevation myocardial infarction, status post cardiac catheterization. 4. Hypertension with chronic kidney disease. 5. Mild volume overload, status post IV Lasix yesterday. PLAN: Agree with maintaining low-dose loop diuretics on a daily basis. Repeat labs as outpatient. Follow up with Urology and Nephrology post discharge. MMODL / IJN: [id number] /
--- NOTE | 2020-12-05 08:38 | ECHOF ---
Referral Reason:LV Function, assess for wall motion abnorm MEASUREMENTS -------- HEIGHT: 157.5 cm WEIGHT: 93.9 kg BP: FINDINGS -------- Sinus rhythm. Pt had echo 11/26/20: Limited echo for lv function. Overall left ventricular systolic function is normal with, an EF between 55 - 60 %. There is no pericardial effusion. CONCLUSIONS -------- 1. Sinus rhythm. 2. Pt had echo 11/26/20: Limited echo for lv function. 3. There is no pericardial effusion. [employer] MECH[employer]IC: Nishi Monahan RDCS
== END 2020-12-04 14:04 | disposition home or self-care (01) | DRG 987 ==
LOC: SUPCPDRO 06:45 → CATHCVL 06:45 → 2SICU 06:49 → 3SCARD 08:26 → 2SICU 11:15 → 3SCARD 11-27 16:30
PROVIDERS: ADMIT Internal Medicine; ATTEND Internal Medicine
PROC: B2111ZZ Fluoroscopy of Multiple Coronary Arteries using Low Osmolar Contrast (ICD-10-PCS; 2020-11-26 08:25)
PROC: B3101ZZ Fluoroscopy of Thoracic Aorta using Low Osmolar Contrast (ICD-10-PCS; 2020-11-26 08:25)
PROC: 4A023N7 Measurement of Cardiac Sampling and Pressure, Left Heart, Percutaneous Approach (ICD-10-PCS; 2020-11-26 08:25)
PROC: 0T778DZ Dilation of Left Ureter with Intraluminal Device, Via Natural or Artificial Opening Endoscopic (ICD-10-PCS; principal; 2020-12-01 07:30)
PROC: 0TC78ZZ Extirpation of Matter from Left Ureter, Via Natural or Artificial Opening Endoscopic (ICD-10-PCS; principal; 2020-12-01 07:30)
DX: I21.19 ST elevation (STEMI) myocardial infarction involving other coronary artery of inferior wall (principal); N17.0 Acute kidney failure with tubular necrosis; J96.01 Acute respiratory failure with hypoxia; I26.99 Other pulmonary embolism without acute cor pulmonale; I16.1 Hypertensive emergency; E87.1 Hypo-osmolality and hyponatremia; E87.3 Alkalosis; N13.2 Hydronephrosis with renal and ureteral calculous obstruction; E03.9 Hypothyroidism, unspecified; N18.31 Chronic kidney disease, stage 3a; I12.9 Hypertensive chronic kidney disease with stage 1 through stage 4 chronic kidney disease, or unspecified chronic kidney disease; Z20.822 Contact with and (suspected) exposure to COVID-19; N14.1 Nephropathy induced by other drugs, medicaments and biological substances; R00.1 Bradycardia, unspecified; T50.8X5A Adverse effect of diagnostic agents, initial encounter; E87.70 Fluid overload, unspecified; E78.5 Hyperlipidemia, unspecified; I07.1 Rheumatic tricuspid insufficiency; T50.2X5A Adverse effect of carbonic-anhydrase inhibitors, benzothiadiazides and other diuretics, initial encounter; F17.210 Nicotine dependence, cigarettes, uncomplicated; Z71.6 Tobacco abuse counseling; E66.9 Obesity, unspecified; Z68.36 Body mass index [BMI] 36.0-36.9, adult; Z79.890 Hormone replacement therapy; Z79.899 Other long term (current) drug therapy; Z90.49 Acquired absence of other specified parts of digestive tract; Z87.81 Personal history of (healed) traumatic fracture; Z87.19 Personal history of other diseases of the digestive system; Z90.710 Acquired absence of both cervix and uterus; Z87.42 Personal history of other diseases of the female genital tract; Z90.722 Acquired absence of ovaries, bilateral; Z87.442 Personal history of urinary calculi; Z98.890 Other specified postprocedural states; Z71.3 Dietary counseling and surveillance; Z88.8 Allergy status to other drugs, medicaments and biological substances; Z82.49 Family history of ischemic heart disease and other diseases of the circulatory system; Z83.3 Family history of diabetes mellitus; Z80.9 Family history of malignant neoplasm, unspecified
CPT/HCPCS: 71045; 74176; 74420; 76770; 78580; 80048; 80053; 80061; 81001; 82365; 82570; 83690; 83735; 83880; 84300; 84484; 84540; 85025; 85027; 85049; 85610; 85730; 87635; 93005; 93306; 93308; 93458; 93567; 93970; 94760; 99285

== ENCOUNTER 2021-09-30 08:05 | Day surgery (SDC) | payer MEDICARE, OTHER ==
[2021-09-25 11:55] VITALS: BMI 36.6
[~2021-09-30 08:05] MED LIST: LIDOCAINE 1% (10MG/ML) FOR IV START INTRADERMA PRN
[2021-09-30] MEDS: LACTATED RINGERS 1,000 ML IV SCH ×2 (08:21→08:43)
[2021-09-30 08:44] VITALS: TEMP 98.1
[2021-09-30] MEDS ORDERED: PROPOFOL 10 MG/ML 20 ML VIAL IV ONE (08:46)
--- NOTE | 2021-09-30 09:12 | P.PCN ---
Date of Procedure: 09/30/21 Procedure(s) Performed: BRIEF HISTORY: Patient is a in 71-year-old pleasant white female scheduled for an elective colonoscopy as a part of evaluation of prior history of colon polyps. Her last colonoscopy was about 3 years ago in [place] and patient states that she was diagnosed with multiple colon polyps and had colonoscopies 6 months apart part and was told had serrated adenomas. PROCEDURE PERFORMED: Colonoscopy with snare polypectomy. PREOPERATIVE DIAGNOSIS: History of colon polyps. IV sedation per Anesthesia. PROCEDURE: After informed consent was obtained, the patient, was brought into the endoscopy unit. IV sedation was administered by Anesthesia under continuous monitoring. Digital rectal examination was normal. Initially the Olympus CF-160 flexible video colonoscope was then inserted in the rectum, gradually advanced into the cecum without any difficulty. Careful examination was performed as the scope was gradually being withdrawn. Ileocecal valve and the appendiceal orifice were visualized and appeared normal. Prep was excellent. Mucosa of the cecum, appeared normal. In the ascending colon there was a 3 mm polyp that was removed by snare polypectomy. There was tattooing from previous colonoscopy in the ascending colon but no residual polyp identified. In the transverse colon there was a 5 mm and 7 mm sessile polyps removed by snare polypectomy. In the descending colon there was another area with that was noted but no residual polyp identified. Scattered sigmoid diverticulosis seen. Rest of the descending colon, sigmoid colon, and rectum appeared normal. Retroflexion was performed in the rectum and no lesions were seen. The patient tolerated the procedure well. IMPRESSION: 3 mm ascending colon polyp status post polypectomy 7-8 mm transverse colon polyp and a 5 mm transverse colon polyp status post polypectomy Scattered sigmoid diverticulosis RECOMMENDATIONS: Findings of this examination were discussed with the patient as well as her family. She was advised to follow with the biopsy results and have a repeat colonoscopy in 3 years..
[2021-09-30 09:48] VITALS: BP 130/82; PULSE 70; RESP 20
== END 2021-09-30 10:02 | disposition home or self-care (01) ==
LOC: ORWHC2ENDO 08:05
PROVIDERS: ATTEND Internal Medicine Gastroenterology
DX: Z12.11 Encounter for screening for malignant neoplasm of colon (principal); D12.3 Benign neoplasm of transverse colon; K63.5 Polyp of colon; K57.30 Diverticulosis of large intestine without perforation or abscess without bleeding; Z86.010 Personal history of colon polyps; I25.10 Atherosclerotic heart disease of native coronary artery without angina pectoris; I25.2 Old myocardial infarction; E07.9 Disorder of thyroid, unspecified; Z90.710 Acquired absence of both cervix and uterus; Z90.49 Acquired absence of other specified parts of digestive tract; Z79.890 Hormone replacement therapy; Z79.899 Other long term (current) drug therapy
CPT/HCPCS: 88305; 45385; J2704

== ENCOUNTER → 2022-07-05 | Outpatient (CLI) | payer MEDICARE ==
[2022-07-05 15:36] LABS: HCT 51.5 % (37.2-46.3); HGB 16.7 g/dL (12.0-15.0); MCH 30.8 pg (27.0-32.0); MCHC 32.4 g/dL (32.0-37.0); Mean Platelet Volume 11.8 fL (9.5-12.2); NRBC Per 100 WBC 0 /100 WBCS (0.0-0.0); Platelet Count 191 X 10*3/uL (140-440); RBC 5.42 X 10*6/uL (4.10-5.20); WBC 5.84 X 10*3/uL (4.50-10.00)
[2022-07-05 17:12] LABS: ALT 43 U/L (8-44); AST 38 U/L (13-35); African American GFR (CKD) 36.7 (60.0-200.0); Albumin 4.4 g/dL (3.8-4.9); Albumin/Globulin Ratio 1.57 (1.60-3.17); Alkaline Phosphatase 77 U/L (41-126); BUN/Creat Ratio 18.38 Ratio (12.00-20.00); Blood Urea Nitrogen 29.4 mg/dL (9.0-27.0); Calcium 10.1 mg/dL (8.7-10.3); Carbon Dioxide 30.3 mmol/L (20.0-27.5); Chloride 96 mmol/L (96-109); Chol/HDL Ratio 1.97 Ratio; Creatine Kinase 89 U/L (26-186); Globulin 2.8 g/dL (1.6-3.3); Glucose 124 mg/dL (70-110); Non-African American GFR(CKD) 31.6 (60.0-200.0); Potassium 3.2 mmol/L (3.5-5.5); Sodium 146 mmol/L (135-145); Total Protein 7.2 g/dL (6.2-8.2)
== END | disposition home or self-care (01) ==
LOC: LABWHC1 08:30
PROVIDERS: ATTEND Internal Medicine Cardiovascular Disease
DX: I12.9 Hypertensive chronic kidney disease with stage 1 through stage 4 chronic kidney disease, or unspecified chronic kidney disease (principal); E11.22 Type 2 diabetes mellitus with diabetic chronic kidney disease; E11.65 Type 2 diabetes mellitus with hyperglycemia; N18.9 Chronic kidney disease, unspecified; R60.9 Edema, unspecified; R82.993 Hyperuricosuria; E53.8 Deficiency of other specified B group vitamins; E53.9 Vitamin B deficiency, unspecified; E03.9 Hypothyroidism, unspecified; E55.9 Vitamin D deficiency, unspecified
CPT/HCPCS: 36415; 80053; 80061; 82306; 82550; 82607; 83036; 83880; 84439; 84443; 84479; 84550; 85027

== ENCOUNTER → 2022-09-10 | Outpatient (CLI) | payer MEDICARE ==
--- NOTE | 2022-09-10 11:03 | CTL ---
EXAMINATION TYPE: CT Low Dose Lung DATE OF EXAM ORDERED: 09/10/2022 HISTORY: . Lung cancer screening CT DLP: 120.[address] CTDI: 3.4 mGy Automated exposure control for dose reduction was used. SCREENING VISIT: COMPARISON: None TECHNIQUE: Low dose computed tomography scan was performed through the chest at 1 mm thick sections a nd reconstructed images in multiple planes at 1 mm and [address] DIAGNOSTIC QUALITY: Satisfactory FINDINGS: There is central and basilar bronchiectasis. Mild emphysematous changes noted. There is no evidence o f consolidative pneumonia. There is a 2 mm subpleural nodule axial image 141 within the right lower lobe. There is a 2 mm nodule axial image 108 and 107 anterior segment is right upper lobe Postcholecystectomy clips are seen in the right upper quadrant. Hypertrophic and degenerative changes spine. Heart size mildly prominent. Calcification near the aortic root is now noted and there is coronary ar soo calcification. Ascending aorta measures a maximal dimension 3.5 cm. Atherosclerotic changes of t he aorta and shotty adenopathy is seen within the mediastinum. Calcification the tracheobronchial misael e. There is asymmetric soft tissue density along the medial margin of the left breast. IMPRESSION: 1. There are sub-5 mm benign-appearing pulmonary nodules. Emphysematous changes are noted as discusse d above. 2. Asymmetric density within the medial margin of the left breast measuring 3 cm with adjacent questi onable 8 mm nodule. Mammogram is recommended. CT LUNG RAD AND CT CHEST RECOMMENDATION: Lung-Rad 2 Benign Appearance or Behavior: Continue annual sc reening with LDCT in 12 months. S Modifier (other clinically significant findings): S
== END | disposition home or self-care (01) ==
LOC: RADCTMAIN 09:28
PROVIDERS: ATTEND Family Medicine
DX: Z12.2 Encounter for screening for malignant neoplasm of respiratory organs (principal); J43.9 Emphysema, unspecified; N64.89 Other specified disorders of breast; R91.8 Other nonspecific abnormal finding of lung field; Z87.891 Personal history of nicotine dependence
CPT/HCPCS: 71271

== ENCOUNTER → 2022-09-28 | Outpatient (CLI) | payer MEDICARE ==
--- NOTE | 2022-09-28 09:06 | MM ---
Reason for Exam: Clinical finding. Last screening mammogram was performed 12 month(s) ago. Patient History: Menarche at age 11. First Full-Term at age 16. Left ovary removed at age 45. Right ovary removed at age 45. Hysterectomy at age 45. Postmenopausal. Risk Values: Lilian 5 year model risk: 1.3%. NCI Lifetime model risk: 3.1%. Tissue Density: There are scattered fibroglandular densities. Findings: Analyzed By CAD. No new suspicious calcifications within either breast. There are vascular calcifications within both breasts. Increased focal asymmetry within the posterior aspect of the lower inner left breast near site of palpable marker. No suspicious mass within the right breast. Overall Assessment: Incomplete: need additional imaging evaluation, BI-RAD 0 Management: Diagnostic Breast Ultrasound of the left breast. A clinical breast exam by your physician is recommended on an annual basis and results should be correlated with mammographic findings. This exam should not preclude additional follow-up of suspicious palpable abnormalities. Results were given to the patient verbally at the time of exam. Electronically signed and approved by: Bernardino Taylor D.O.
--- NOTE | 2022-09-28 09:33 | USB ---
Reason for Exam: Clinical finding. Patient History: Menarche at age 11. First Full-Term at age 16. Left ovary removed at age 45. Right ovary removed at age 45. Hysterectomy at age 45. Postmenopausal. Risk Values: Lilian 5 year model risk: 1.3%. NCI Lifetime model risk: 3.1%. Technique: Method: Targeted. Prior Study Comparison: 08/31/2021 Bilateral MG 3D screening mammo w/cad, Unknown. Findings: The medial section of the breast of the left breast and the retroareolar of the left breast were scanned. The medial aspect of the left breast was scanned along with the retroareolar region. There is a irregular shaped mass that is predominantly hypoechoic measuring up to 1.8 x 1.1 x 1.7 cm 11:00 11 cm from the nipple. Overall Assessment: Highly suggestive of malignancy, BI-RAD 5 Management: Ultrasound Core Biopsy of the left breast. A clinical breast exam by your physician is recommended on an annual basis and results should be correlated with mammographic findings. This exam should not preclude additional follow-up of suspicious palpable abnormalities. Results were given to the patient verbally at the time of exam. Electronically signed and approved by: Dale Patterson DO
--- NOTE | 2022-09-28 11:46 | BD ---
EXAMINATION TYPE: Axial Bone Density DATE OF EXAM: 09/28/2022 COMPARISON: NONE CLINICAL HISTORY: 72 years old Female. 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 Height: 61 Weight: 200 FRAX RISK QUESTIONS: Family History (Parent hip fracture): NO History of Fracture in Adulthood: YES 2014 Secondary Osteoporosis: NO Rheumatoid Arthritis: NO Current Tobacco Use: YES RISK FACTORS HISTORY OF: Spine Fracture: YES L2-L3 When: 04/2016 History of Wrist Fracture: YES LEFT When: 02/2015 Surgery to Wrist (left): YES When: 02/2015 Family History of Osteoporosis: NO Active: YES Diet low in dairy products/other sources of calcium: YES Postmenopausal woman: YES Lost more than 2 inches in height since high school: NO Frequent falls: NO Poor Health: NO MEDICATIONS: Thyroid Medications: YES Which medication: Levothyroxine How Lon+ YEARS Additional Medications: YES WATER PILL , ZYRTEC , HEART MEDS, HBP , CHOLESTEROL EXAM MEASUREMENTS: Bone mineral densitometry was performed using the [employer] System. Bone mineral density as measured about the Lumbar spine is: ----- L1-L4(G/cm2): 0.879 T Score Values are as follows: ----- L1: -2.1 ----- L2: -2.8 ----- L3: -2.3 ----- L4: -2.9 ----- L1-L4: -2.5 Bone mineral density BASELINE Bone mineral density about the R hip (g/cm2): 0.791 Bone mineral density about the L hip (g/cm2): 0.758 T Score values are as follows: -----R Neck: -2.3 -----L Neck: -2.3 -----R Total: -1.7 -----L Total: -2.0 Bone mineral density BASELINE FRAX%s: The graph provided illustrates a 20.6% chance for a major osteoporotic fx and a 5.2% chance f or the hips probability for fx in 10 years time. IMPRESSION: Osteoporosis (T Score less than -2.5). There is increased fracture risk and therapy is usually indicated based on age. Re-Screen 1-2 years. NOTE: T-SCORE=SD OF THE YOUNG ADULT MEAN.
== END | disposition home or self-care (01) ==
LOC: RADMAMWWP 08:18
PROVIDERS: ATTEND Family Medicine
DX: N63.20 Unspecified lump in the left breast, unspecified quadrant (principal); M81.0 Age-related osteoporosis without current pathological fracture; R92.8 Other abnormal and inconclusive findings on diagnostic imaging of breast; M85.89 Other specified disorders of bone density and structure, multiple sites; Z78.0 Asymptomatic menopausal state
CPT/HCPCS: 77080; 77066; 76642; G0279; 77062

== ENCOUNTER → 2022-11-11 | Outpatient (CLI) | payer MEDICARE ==
--- NOTE | 2022-11-11 15:43 | P.PN ---
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 Moore regarding a biopsy proven cancer of the left breast. She had a bilateral ma mmogram on 09-28-22 which led to a left breast ultrasound on the same date. This showed a 1.8 cm lesion at 11:00 for which biopsy was done on 10-07-22. This was a G3 invasive ductal cancer ER+, AL+ her2-. The patient was being seen by the chiropractor in June and while laying on her abdomen felt soreness in her left breast. This led to her having this evaluated. She is not having any nipple discharge or skin changes. She is not complaining of any trauma or infection to the breast. She has never had any surgery on her breast. Note Dr. Noel of [id number] reviewed, she had an Oncotype recurrent score of 0 Desyrel be no clinical benefit to chemotherapy She may have adjuvant endocrine therapy following her surgery Note from Dr. Shaw Piña [id number] reviewed they will follow up with her post surgery to determine whether radiation therapy will be recommended. Caffeine: 1 cup/day nicotine: 8 cig/day; used to smoke 1 PPD since ; had stopped 2019 but recently started again chocolate: weekly BCP: no hormones: after hysterectomy for 5 years stopped 2001 Family History: daughter: cervical cancer daughter: uterine cancer Hormonal History: menarche: 11 1 at ; breast fed: no, age at first :18 menopause: hysterectomy at 47; took ovaries no cancer fibroids Surgical History: JERROD BSO gallbladder left wrist after falling kidney stone/ lithotripsy Medical History: ? [place] HTN diabetic hypothyroid CVA/TIA gout Social History: nicotine: as above alcohol: none drugs: none - Constitutional Constitutional: Denies chills, Denies fever - EENT Comment: wears glasses Ears: deny: decreased hearing, tinnitus Ears, nose, mouth and throat: Denies headache, Denies sore throat - Breasts Breasts: bilateral: as per HPI - Cardiovascular Cardiovascular: Reports as per HPI, Reports shortness of breath - Respiratory Respiratory: Denies cough - Gastrointestinal Comment: PUD in the past Gastrointestinal: Denies abdominal pain, Denies diarrhea, Denies nausea, Denies vomiting - Genitourinary (Female) Genitourinary: Reports kidney stones - Menstruation Menstruation: Reports post hysterectomy - Musculoskeletal Comment: leg pains - Integumentary Integumentary: Denies pruritus, Denies rash - Neurological Neurological: Reports numbness, Denies weakness - Psychiatric Psychiatric: Denies anxiety, Denies depression - Endocrine Endocrine: Reports as per HPI - Hematologic/Lymphatic Comment: Eliquis - Allergic/Immunologic Allergic/Immunologic: Reports seasonal allergies Past Medical History Past Medical History: Coronary Artery Disease (CAD), CVA/TIA, Hypertension, Myocardial Infarction ([place]), Thyroid Disorder Additional Past Medical History / Comment(s): hx colon polyps, gout, kidney stones., states hx stroke on x-ray-pt was unaware. Last Myocardial Infarction Date:: october 2020 History of Any Multi-Drug Resistant Organisms: None Reported Past Surgical History: Cholecystectomy, Heart Catheterization, Hysterectomy Additional Past Surgical History / Comment(s): BILATERAL OOPHORECTOMY, heart cath attempt Past Anesthesia/Blood Transfusion Reactions: No Reported Reaction Past Psychological History: No Psychological Hx Reported Smoking Status: Current every day smoker Past Alcohol Use History: None Reported Additional Past Alcohol Use History / Comment(s): smokes 3-4 cigarettes per day, trying to quit , hx of 1 ppd or more., started smokig age 19. Past Drug Use History: None Reported - Past Family History Mother Daughter(s) Family Medical History: Cancer Medications and Allergies Home Medications Medication Instructions Recorded Confirmed Type Levothyroxine Sodium [Synthroid] 88 mcg PO MOWEFR 02/24/15 10/15/22 History Fish Oil/Dha/Epa [Fish Oil 1,200 1 cap PO DAILY 11/26/20 10/15/22 History mg Fish Oil] Levothyroxine Sodium [Synthroid] 100 mcg PO SUTUTHSA 11/26/20 10/15/22 History Furosemide [Lasix] 20 mg PO DAILY #30 tab 11/29/20 10/15/22 Rx Metoprolol Tartrate [Lopressor] 25 mg PO BID #60 tab 11/29/20 10/15/22 Rx hydrALAZINE HCL [Apresoline] 50 mg PO QID #120 tab 12/04/20 10/15/22 Rx Apixaban [Eliquis] 5 mg PO DAILY 09/25/21 10/15/22 History Atorvastatin [Lipitor] 40 mg PO DAILY 09/25/21 10/15/22 History Ibuprofen 200 mg PO DIRECTED PRN 09/25/21 10/15/22 History allopurinoL [Zyloprim] 100 mg PO DAILY 09/25/21 10/15/22 History Allergies Allergy/AdvReac Type Severity Reaction Status Date / Time adhesive tape AdvReac Rash/Hives Unverified 10/15/22 09:08 NITRILE GLOVES Allergy Rash/Hives-SYSTEMIC Uncoded 10/15/22 09:08 REACTION Objective - Constitutional General appearance: Present: cooperative - EENT Eyes: Present: EOMI ENT: Present: hearing grossly normal - Neck Neck: Present: normal ROM - Respiratory Respiratory: bilateral: CTA - Cardiovascular Rhythm: regular Heart sounds: normal: S1, S2 - Gastrointestinal General gastrointestinal: Present: soft - Musculoskeletal Musculoskeletal: Present: gait normal - Psychiatric Psychiatric: Present: A&O x's 3, appropriate affect, intact judgment & insight - Additional findings Additional findings: Breast Exam: BRA: 42C Inspection: Bilateral grade 3 ptosis Palpation: Right breast: multi-ositional exam fibrocystic changes no dominant masses or nodules of concern Right axilla: No adenopathy of concern Left breast: Multi-positional exam 11 o'clock position fullness which does not appear fixed to the chest wall approximately 2 cm in size Left axilla: No adenopathy of concern Assessment and Plan Assessment: Impression: ? [place] HTN diabetic hypothyroid CVA/TIA gout left bresat stage I invasive ductal cancer Case presented at tumor board and [id number] Plan: Clearance from Dr. Moore Needle localization left breast cancer and lumpectomy, left breast sentinel node injection, left breast sentinel node biopsy, possible left axillary node d issection, left onco- plastic tissue transfer Risks and benefits of the procedure were discussed with the patient. Risks include but are not limited to bleeding, infection, reaction to the anesthetic. If the margins would be positive the patient would need to have a reexcision performed. She understands this and wishes to proceed. We've also discussed the risk of sentinel node biopsy. This includes but is not limited to bleeding, infection, reaction to the anesthetic. Again the patient could develop a seroma, she can have decreased sensation to the inner arm lymphedema. Possible injury to the thoracodorsal or long thoracic nerves are discussed. She understands and wishes to proceed. CC: Dr. Moore
[2022-11-11 15:54] VITALS: BP 135/91; PULSE 93; RESP 17; TEMP 97.9
== END ==
LOC: WWCWWP 15:26
PROVIDERS: ATTEND Surgery
DX: D05.12 Intraductal carcinoma in situ of left breast (principal); I10 Essential (primary) hypertension; E11.9 Type 2 diabetes mellitus without complications; E03.9 Hypothyroidism, unspecified; M10.9 Gout, unspecified; I21.9 Acute myocardial infarction, unspecified; I25.10 Atherosclerotic heart disease of native coronary artery without angina pectoris; Z88.8 Allergy status to other drugs, medicaments and biological substances; F17.210 Nicotine dependence, cigarettes, uncomplicated

== ENCOUNTER → 2022-11-26 | Outpatient (CLI) | payer MEDICARE ==
[2022-11-26 18:49] LABS: Basophils # (A) 0.06 X 10*3/uL (0.00-0.10); Basophils % (A) 0.9 %; Eosinophils # (A) 0.27 X 10*3/uL (0.04-0.35); Eosinophils % (A) 4.1 %; HCT 53.3 % (37.2-46.3); HGB 16.5 g/dL (12.0-15.0); Immature Grans, Automated 0.3 %; Lymphocytes # (A) 1.86 X 10*3/uL (0.90-5.00); Lymphocytes % (A) 28.5 %; MCH 31.2 pg (27.0-32.0); MCV 100.8 fL (80.0-97.0); Mean Platelet Volume 11.7 fL (9.5-12.2); Monocytes % (A) 18.4 %; NRBC Per 100 WBC 0 /100 WBCS (0.0-0.0); Neutrophils # (A) 3.12 X 10*3/uL (1.80-7.70); Neutrophils % (A) 47.8 %; Platelet Count 190 X 10*3/uL (140-440); RBC 5.29 X 10*6/uL (4.10-5.20); RDW 14.6 % (11.5-14.5); WBC 6.53 X 10*3/uL (4.50-10.00)
[2022-11-26 19:25] LABS: African American GFR (CKD) 39.6 (60.0-200.0); Anion Gap 12.7 mmol/L (10.00-18.00); BUN/Creat Ratio 16.67 Ratio (12.00-20.00); Calcium 9.8 mg/dL (8.7-10.3); Carbon Dioxide 28.3 mmol/L (20.0-27.5); Non-African American GFR(CKD) 34.2 (60.0-200.0); Potassium 4.5 mmol/L (3.5-5.5)
[2022-11-26 19:56] LABS: INR 0.94 (0.90-1.11); Prothrombin Time 10.6 sec (9.9-11.9)
== END | disposition home or self-care (01) ==
LOC: LABWHC1 11:00
PROVIDERS: ATTEND Family Medicine
DX: Z01.812 Encounter for preprocedural laboratory examination (principal); E11.65 Type 2 diabetes mellitus with hyperglycemia; E11.22 Type 2 diabetes mellitus with diabetic chronic kidney disease; N18.9 Chronic kidney disease, unspecified; N63.20 Unspecified lump in the left breast, unspecified quadrant
CPT/HCPCS: 36415; 80048; 83036; 85025; 85610

== ENCOUNTER 2022-11-30 09:12 | Day surgery (SDC) | payer MEDICARE ==
[~2022-11-30 09:12] MED LIST changes: +DEXAMETHASONE SOD PHOSPHATE 4 MG/ML 1 ML VIAL IV ONE; +HEPARIN SODIUM,PORCINE/PF 5,000 UNIT/0.5 ML SYRINGE SQ PRN; +HYDROmorphone 0.5 MG/0.5 ML SYRINGE IVP PRN; +LACTATED RINGERS 1,000 ML IV SCH; +MIDAZOLAM 2 MG/2 ML VIAL IV PRN; +ONDANSETRON 4 MG/2 ML VIAL IVP ONE; +Pre Op ABX Message 1 EACH MISC MISCELLANE ONE
[2022-11-30] MEDS ORDERED: ALPRAZolam 0.25 MG TAB ONE (10:09)
[2022-11-30 10:23] LABS: Glucose,Whole Blood 106 mg/dL (70-110)
[2022-11-30] MEDS ORDERED: LIDOCAINE 1% INJ 10MG/ML (20 ML MDV) SQ ONE (10:48)
--- NOTE | 2022-11-30 11:35 | NM ---
EXAMINATION TYPE: NM sentinel node injection DATE OF EXAM: 11/30/2022 COMPARISON: NONE HISTORY: D05.12 INTRADUCTAL CARCINOMA IN SITU OF LEFT BREAST TECHNIQUE AND FINDINGS: The procedure of sentinel lymph node injection was explained to the patient. The benefits, alternatives, and risks were discussed. An informed consent was then obtained. Overlying skin is cleaned with sterile alcohol. Following this, 537 uCi Tc99m Tilmanocept was inject ed in the upper outer aspect of the left nipple intradermally. The patient tolerated the procedure well without any immediate complication. The patient was kept in the radiology department for short stay after the procedure and then taken to surgery for surgical p rocedure what is presumed intraoperative gamma probe will be used for sentinel lymph node detection. IMPRESSION: Left breast radiotracer injection for sentinel node localization as above.
--- NOTE | 2022-11-30 12:17 | P.NAPBC ---
NAPBC Queries - NAPBC Queries Was patient's case review presented at [facility] tumor board? If no, comment.: Yes Was patient's pathology reviewed at [facility]? If no, comment.: Yes Was breast conservation surgery offered? If no, comment.: Yes Was sentinel node biopsy offered? If no, comment.: Yes Was diagnosis confirmed by percutaneous core biopsy? If no, comment.: Yes Is patient mastectomy patient?: No Was a preop referral to reconstructive surgeon offered?: No Clinical Stage: left breast stage I invasive ductal cancer [id number]+Pr+Her2-G3
[2022-11-30] MEDS ORDERED: fentaNYL (PF) 50 MCG/ML 2 ML AMP ONE (12:55)
[2022-11-30] MEDS ORDERED: ePHEDrine 50 MG/ML 1 ML VIAL ONE (12:55)
[2022-11-30] MEDS ORDERED: LIDOCAINE 2% INJ 20 MG/ML (2 ML VIAL) ONE (12:55)
[2022-11-30] MEDS ORDERED: MIDAZOLAM 2 MG/2 ML VIAL ONE (12:55)
[2022-11-30] MEDS ORDERED: GLYCOPYRROLATE 0.2 MG/ML 2 ML VIAL ONE (12:55)
[2022-11-30] MEDS ORDERED: ROCURONIUM 10 MG/ML (5 ML VIAL) IV ONE (12:55)
[2022-11-30] MEDS ORDERED: NEOSTIGMINE 1 MG/ML 10 ML VIAL ONE (12:55)
[2022-11-30] MEDS ORDERED: SUCCINYLCHOLINE CHLORIDE 200 MG/10 ML VIAL IV ONE (12:55)
[2022-11-30] MEDS ORDERED: PROPOFOL 10 MG/ML 20 ML VIAL IV ONE (12:55)
[2022-11-30] MEDS ORDERED: ALBUTEROL INHALER 60 PUFF/8 GM INHALER (MHU) INHALATION ONE (12:55)
[2022-11-30] MEDS ORDERED: EPINEPHrine 10 ML SYRINGE (0.1 MG/ML) ONE (12:55)
[2022-11-30] MEDS ORDERED: SODIUM CHLORIDE 0.9% 100 ML with ceFAZolin 2,000 MG IV ONE ×2 (13:16)
--- NOTE | 2022-11-30 14:34 | P.OP ---
Date of Procedure: 11/30/22 Preoperative Diagnosis: Left breast invasive ductal carcinoma Postoperative Diagnosis: Same Procedure(s) Performed: Left breast sentinel node biopsy, needle localization left breast lumpectomy, onco-plastic tissue transfer 57 cm Anesthesia: SELENE Cardiac Monitor #1: Kanika Choudhury Estimated Blood Loss (ml): 15 IV fluids (ml): 600 Pathology: other (Breast tissue, axillary lymph nodes) Condition: stable Disposition: same day Indications for Procedure: Invasive ductal carcinoma left breast Operative Findings: Fibrofatty breast tissue Description of Procedure: The patient was first taken to the radiology department. In the radiology Department needle localization of the cancer in the left breast was performed. Following this the patient was injected with radioactive tracer to identify the sentinel lymph node. The patient was brought to the operative suite. Following induction of anesthesia interrogation of the axilla revealed that the radioactivity had traveled. The left breast and axilla were then prepped and draped in a sterile fashion. Using the neoprobe for direction an incision was made over the area of greatest radioactivity. Dissection was carried down into the axillary tissues. The first lymph node identified had a a in vivo count of 12,000 and a 10 second count which was off the scale on the [employer] counter major bleeding device. Additional interrogation of the axilla revealed a second axillary lymph node which was radioactive. This was removed using the Harmonic scalpel and the 10 second count was 265. Following this interrogation of the axilla revealed background count of 29. No other lymph nodes of concern were identified. After assured that hemostasis was attained the wound was irrigated. The deep tissues were closed using 3-0 Vicryl suture. The skin was closed using a 4-0 subcuticular Monocryl. The area of the breast was approached. Incision was made and carried down to the hook of the needle. The surrounding tissue was widely excised. The sp ecimen was painted for orientation. The specimen was sent to radiology and the area of concern was noted to have been removed. Posterior dissection was on the pectoralis muscle. Anterior dissection was directly under the skin. The medial margin appeared to be close and additional medial tissue was obtained. After we were assured that hemostasis was attained in the cavity titanium clips were p laced. Superior and inferior pillars were formed. The inferior pillar was 7 x 3 cm. The superior pillar was 4 x 3 cm. The cavity was 6 x 4 cm. Total tissue transfer was 57 cm. After the pillars had been formed there were brought together and secured using Vicryl suture. The deep tissues were closed using 3-0 Vicryl suture. The skin was closed using 4-0 Monocryl. The patient tolerated the procedure in stable condition. All instrument and sponge counts were correct at the end of the case.
--- NOTE | 2022-11-30 14:36 | P.DS ---
Providers Attending physician: Kanika Choudhury Primary care physician: Genesis Moore Plan - Discharge Summary Discharge Rx Participant: No New Discharge Prescriptions: New HYDROcodone/APAP 5-325MG [[place] 5] 1 - 2 each PO Q4H PRN #14 tab PRN Reason: Pain No Action Levothyroxine Sodium [Synthroid] 88 mcg PO MOWEFR Levothyroxine Sodium [Synthroid] 100 mcg PO SUTUTHSA Metoprolol Tartrate [Lopressor] 25 mg PO BID #60 tab hydrALAZINE HCL [Apresoline] 50 mg PO QID #120 tab allopurinoL [Zyloprim] 300 mg PO MOWEFR Potassium Chloride ER [K-Dur 20] 20 meq PO DAILY Melatonin 5 mg PO HS Fish Oil/Dha/Epa [Fish Oil 1,200 mg Fish Oil] 1 cap PO DAILY Atorvastatin [Lipitor] 20 mg PO DAILY Furosemide [Lasix] 40 mg PO DAILY Empagliflozin [Jardiance] 10 mg PO DAILY Discharge Medication List Levothyroxine Sodium [Synthroid] 88 mcg PO MOWEFR 02/24/15 [History] Fish Oil/Dha/Epa [Fish Oil 1,200 mg Fish Oil] 1 cap PO DAILY 11/26/20 [History] Levothyroxine Sodium [Synthroid] 100 mcg PO SUTUTHSA 11/26/20 [History] Metoprolol Tartrate [Lopressor] 25 mg PO BID #60 tab 11/29/20 [Rx] hydrALAZINE HCL [Apresoline] 50 mg PO QID #120 tab 12/04/20 [Rx] Atorvastatin [Lipitor] 20 mg PO DAILY 09/25/21 [History] allopurinoL [Zyloprim] 300 mg PO MOWEFR 09/25/21 [History] Empagliflozin [Jardiance] 10 mg PO DAILY 11/26/22 [History] Furosemide [Lasix] 40 mg PO DAILY 11/26/22 [History] Melatonin 5 mg PO HS 11/26/22 [History] Potassium Chloride ER [K-Dur 20] 20 meq PO DAILY 11/26/22 [History] HYDROcodone/APAP 5-325MG [[place] 5] 1 - 2 each PO Q4H PRN #14 tab 11/30/22 [Rx] Follow up Appointment(s)/Referral(s): Kanika Choudhury MD [STAFF PHYSICIAN] - 12/09/22 4:00 pm Activity/Diet/Wound Care/Special Instructions: do not drive for 24 hours from discharge or if taking narcotic pain medicine may shower after 48 hours wear bra at all times Discharge Disposition: HOME SELF-CARE
[2022-11-30 15:08] VITALS: TEMP 96.8
[2022-11-30 15:43] VITALS: RESP 16
[2022-11-30] MEDS ORDERED: HYDROcodone/APAP 5-325MG 1 EACH TAB PO ONE (16:45)
[2022-11-30] MEDS ORDERED: HYDROcodone/APAP 5-325MG 1 EACH TAB ONE (16:45)
[2022-11-30 17:02] VITALS: BP 125/82; PULSE 78
== END 2022-11-30 17:35 | disposition home or self-care (01) ==
LOC: OR 09:12
PROVIDERS: ATTEND Surgery
DX: D05.12 Intraductal carcinoma in situ of left breast (principal); I10 Essential (primary) hypertension; I48.91 Unspecified atrial fibrillation; F17.210 Nicotine dependence, cigarettes, uncomplicated; E11.9 Type 2 diabetes mellitus without complications; E03.9 Hypothyroidism, unspecified; M10.9 Gout, unspecified; Z91.048 Other nonmedicinal substance allergy status; Z88.8 Allergy status to other drugs, medicaments and biological substances; I25.2 Old myocardial infarction; I25.10 Atherosclerotic heart disease of native coronary artery without angina pectoris; Z87.19 Personal history of other diseases of the digestive system; Z87.442 Personal history of urinary calculi; K21.9 Gastro-esophageal reflux disease without esophagitis; Z86.73 Personal history of transient ischemic attack (TIA), and cerebral infarction without residual deficits; Z79.84 Long term (current) use of oral hypoglycemic drugs; Z79.899 Other long term (current) drug therapy; Z98.890 Other specified postprocedural states; Z80.49 Family history of malignant neoplasm of other genital organs
CPT/HCPCS: 19301; 38525; 19285; 38792; 88342; 88307; 88341; 77065; 76098; C1819; A9520; J2250; J0330; J1100; J2710; J2405; J0690; J2001 ×2; J0171; J3010; J2704; J1170; J1644

== ENCOUNTER → 2022-12-10 | Outpatient (CLI) | payer MEDICARE ==
--- NOTE | 2022-12-10 11:16 | P.PN ---
Progress Note - Text Progress Note Date: 12/10/22 Sybil is a 72 year old white female status post left breast lumpectomy and removal of 6 lymph nodes on 11-30-22. Her pathology was invasive ductal cancer, with 6 nodes all (-). Margins were negative. A new medial margin was obtained and that was negative as well. The patient is having some postoperative discomfort but is otherwise doing well. She is not having any fever or chills. Physical examination: Lungs: Clear Heart: Regular rate and rhythm Incisions clean and dry Mild erythema and the breast incision, with a questionable small seroma Impression: Patient doing well status post left breast lumpectomy and sentinel node biopsy Probable small seroma Plan: Attempted aspiration of seroma Prophylactic antibiotics as she has some erythema of the site Follow up with Dr. Davis in 1 week CC: Dr. Moore
== END ==
LOC: WWCWWP 10:18
PROVIDERS: ATTEND Surgery
DX: Z85.3 Personal history of malignant neoplasm of breast (principal); Z91.048 Other nonmedicinal substance allergy status; Z91.09 Other allergy status, other than to drugs and biological substances; F17.200 Nicotine dependence, unspecified, uncomplicated

== ENCOUNTER → 2022-12-17 | Outpatient (CLI) | payer MEDICARE ==
[2022-12-17 08:51] VITALS: BP 139/88; PULSE 66; RESP 17; TEMP 98.1
--- NOTE | 2022-12-17 09:12 | P.PN ---
Progress Note - Text Progress Note Date: 12/17/22 Progress Note - Text Progress Note Date: 12-17-22 Sybil is a 72 year old white female status post left breast lumpectomy and removal of 6 lymph nodes on 11-30-22. Her pathology was invasive ductal cancer, with 6 nodes all (-). Margins were negative. A new medial margin was obtained and that was negative as well. The patient is having some postoperative discomfort in the axilla which is improving. She is not having any fever or chills. She is complaining of some hemorrhoidal discomfort. She is following with Dr. Moore regarding this. On 12-10-22 Following informed consent the area of fullness in the right breast was prepped using alcohol. A 22-gauge needle on a 10 mL syringe was inserted into the area of concern and 30 mL of serous fluid was obtained. The patient tolerated procedure in stable condition. The patient will follow up with medical oncology and radiation oncology as well Physical examination: Lungs: Clear Heart: Regular rate and rhythm Incisions clean and dry Mild erythema and the breast incision, with a questionable small seroma aspiration of Seroma: The area of fullness in the left breast was prepped using alcohol A 22-gauge needle on it 12 mL syringe was inserted into the area of concern. A cc of serous fluid was obtained. The patient tolerated this without difficulty. Impression: Patient doing well status post left breast lumpectomy and sentinel node biopsy Probable small seroma Plan: Attempted aspiration of seroma Prophylactic antibiotics as she has some erythema of the site CC: Dr. Moore Additional CC's: Genesis Moore
== END ==
LOC: WWCWWP 08:30
PROVIDERS: ATTEND Surgery
DX: Z85.3 Personal history of malignant neoplasm of breast (principal); Z91.011 Allergy to milk products; F17.200 Nicotine dependence, unspecified, uncomplicated; Z91.048 Other nonmedicinal substance allergy status

== ENCOUNTER → 2023-04-16 | Outpatient (CLI) | payer MEDICARE ==
[2023-04-16 23:11] LABS: Basophils # (A) 0.05 X 10*3/uL (0.00-0.10); Basophils % (A) 0.9 %; Eosinophils # (A) 0.34 X 10*3/uL (0.04-0.35); Eosinophils % (A) 6.2 %; HCT 52.5 % (37.2-46.3); HGB 16.7 d/dL (12.0-15.0); Lymphocytes # (A) 1.45 X 10*3/uL (0.90-5.00); Lymphocytes % (A) 26.6 %; MCH 30.6 pg (27.0-32.0); MCHC 31.8 d/dL (32.0-37.0); MCV 96.3 FL (80.0-97.0); Mean Platelet Volume 11.8 FL (9.5-12.2); Monocytes # (A) 0.98 X 10*3/uL (0.20-1.00); NRBC Per 100 WBC 0 X 10*3/uL (0.00-0.01); Neutrophils # (A) 2.62 X 10*3/uL (1.80-7.70); Neutrophils % (A) 48.1 %; Platelet Count 169 X 10*3/uL (140-440); RBC 5.45 X 10*6/uL (4.10-5.20); WBC 5.45 X 10*3/uL (4.50-10.00)
[2023-04-16 23:29] LABS: ALT 36 U/L (8-44); AST 31 U/L (13-35); Albumin 4.3 d/dL (3.8-4.9); Albumin/Globulin Ratio 1.79 Ratio (1.60-3.17); Alkaline Phosphatase 74 U/L (41-126); BUN/Creat Ratio 13.07 Ratio (12.00-20.00); Blood Urea Nitrogen 19.6 mg/dL (9.0-27.0); Calcium 9.3 mg/dL (8.7-10.3); Carbon Dioxide 30.1 mmol/L (21.6-31.8); Chloride 102 mmol/L (96-109); Chol/HDL Ratio 2.17 Ratio; Globulin 2.4 d/dL (1.6-3.3); Glucose 109 mg/dL (70-110); LDL Cholesterol,Calculated 44.6 mg/dL (0.0-131.0); Potassium 4.1 mmol/L (3.5-5.5); Sodium 144 mmol/L (135-145); Total Bilirubin 0.5 mg/dL (0.3-1.2); Total Protein 6.7 d/dL (6.2-8.2)
== END | disposition home or self-care (01) ==
LOC: LABWHC1 10:58
PROVIDERS: ATTEND Family Medicine
DX: C50.112 Malignant neoplasm of central portion of left female breast (principal); E11.65 Type 2 diabetes mellitus with hyperglycemia; R91.1 Solitary pulmonary nodule
CPT/HCPCS: 36415; 80053; 80061; 83036; 84443; 85025

== ENCOUNTER → 2023-10-17 | Outpatient (CLI) | payer MEDICARE ==
--- NOTE | 2023-10-17 13:35 | MM ---
Reason for Exam: Follow-up at short interval from prior study. Last mammogram was performed 1 year(s) and 1 month(s) ago. Patient History: Menarche at age 11. First Full-Term at age 16. Left ovary removed at age 45. Right ovary removed at age 45. Hysterectomy at age 45. Postmenopausal. Breast cancer, left, age 72. Unspecified Hormone, starting at age 72. 11/30/2022, Lumpectomy on the Left side. 11/30/2022, Malignant US breast localization LT on the left side. 10/07/2022, Malignant US biopsy breast VAD LT on the left side. Prior Study Comparison: 08/31/2021 Bilateral MG 3D screening mammo w/cad, Unknown. 09/28/2022 Bilateral MG 3D diag mammo w/cad [facility], [facility]. 09/28/2022 Left US breast limited LT, [facility]. 10/07/2022 Left MG diagnostic mammo LT wo CAD., [facility]. 11/30/2022 Left MG diagnostic mammo LT wo CAD., [facility]. Tissue Density: The breast tissue is heterogeneously dense. This may lower the sensitivity of mammography. Findings: Analyzed By CAD. Postsurgical and posttreatment changes left breast. Prominent medial posterior global asymmetry remains likely corresponding to the patient's lumpectomy site. Short interval follow-up recommended to assess for any evolving posttreatment change. Medial subareolar nodularity left breast remains unchanged as well. Scar marker overlies the left axilla. Otherwise, no significant change. Overall Assessment: Probably benign, BI-RAD 3 Management: Diagnostic Mammogram of the left breast in 6 months. In order to assess for evolving posttreatment change. Results were given to the patient verbally at the time of exam. Patient should continue monthly self-breast exams. A clinical breast exam by your physician is recommended on an annual basis. This exam should not preclude additional follow-up of suspicious palpable abnormalities. Electronically signed and approved by: Heather Draper M.D. Radiologist
== END | disposition home or self-care (01) ==
LOC: RADMAMWWP 13:07
PROVIDERS: ATTEND Internal Medicine
DX: R92.333 Mammographic heterogeneous density, bilateral breasts (principal); Z78.0 Asymptomatic menopausal state; Z85.3 Personal history of malignant neoplasm of breast
CPT/HCPCS: 77066; G0279; 77062

== ENCOUNTER → 2023-10-17 | Outpatient (CLI) | payer MEDICARE ==
--- NOTE | 2023-10-17 15:36 | CTL ---
EXAMINATION TYPE: CT Low Dose Lung DATE OF EXAM ORDERED: 10/17/2023 HISTORY: Lung cancer screening CT DLP: 126.[address] CTDI: 3.8 mGy Automated exposure control for dose reduction was used. COMPARISON: 09/10/2022 TECHNIQUE: Low dose computed tomography scan was performed through the chest at 1 mm thick sections a nd reconstructed images in multiple planes at 1 mm and [address] DIAGNOSTIC QUALITY: Satisfactory FINDINGS: There are mild emphysematous changes. There are multiple scattered sub-5 mm pulmonary nodules all of which are stable. No new or suspicious lung nodules seen. There is no abnormal airspace/consolidative density or abnormal interstitial density. There is no pleural effusion, pleural thickening or pneumothorax. The great vessels of the chest are normal there is no mediastinal, hilar or axillary adenopathy. Limi rom scanning through the upper abdomen reveals cholecystectomy in the. No focal osseous lesions are seen. IMPRESSION: 1. BI-RADS Category 2 benign findings. Continue routine screening lateral 2. Mild emphysematous changes. 3. No acute cardiopulmonary disease.
== END | disposition home or self-care (01) ==
LOC: RADCTMAIN 13:38
PROVIDERS: ATTEND Family Medicine
DX: Z12.2 Encounter for screening for malignant neoplasm of respiratory organs (principal); F17.210 Nicotine dependence, cigarettes, uncomplicated; J43.9 Emphysema, unspecified
CPT/HCPCS: 71271

== ENCOUNTER → 2023-12-01 | Outpatient (CLI) | payer MEDICARE ==
--- NOTE | 2023-12-01 12:34 | XR ---
EXAMINATION TYPE: XR knee limited LT DATE OF EXAM: 12/01/2023 11:22 AM CLINICAL INDICATION:Female, 73 years old with history of R52 pain; COMPARISON: None. TECHNIQUE: XR knee limited LT; examined in Frontal, lateral and oblique projections. FINDINGS: No evidence of any acute osseous pathology, soft tissue swelling, or joint effusion is no rom. Tricompartmental osteophyte formation involving the femoral condyles, tibial plateau and patella . Mild joint space narrowing. A fabella is present. There is atherosclerosis IMPRESSION: 1. No acute osseous pathology. 2. Mild to moderate tricompartmental osteoarthritic changes.
== END | disposition home or self-care (01) ==
LOC: RADXRMAIN 10:58
PROVIDERS: ATTEND Internal Medicine
DX: C50.412 Malignant neoplasm of upper-outer quadrant of left female breast (principal); M17.12 Unilateral primary osteoarthritis, left knee; Z71.3 Dietary counseling and surveillance; I10 Essential (primary) hypertension; E78.5 Hyperlipidemia, unspecified

== ENCOUNTER → 2023-12-24 | Outpatient (CLI) | payer MEDICARE ==
[2023-12-24 22:37] LABS: Basophils # (A) 0.07 X 10*3/uL (0.00-0.10); Eosinophils # (A) 0.34 X 10*3/uL (0.04-0.35); Eosinophils % (A) 5.1 %; HCT 48.6 % (37.2-46.3); HGB 15.6 g/dL (12.0-15.0); Lymphocytes # (A) 1.94 X 10*3/uL (0.90-5.00); Lymphocytes % (A) 28.9 %; MCH 31.5 pg (27.0-32.0); MCHC 32.1 g/dL (32.0-37.0); Mean Platelet Volume 11.8 FL (9.5-12.2); Monocytes # (A) 1.14 X 10*3/uL (0.20-1.00); NRBC Per 100 WBC 0 X 10*3/uL (0.00-0.01); Neutrophils % (A) 47.7 %; Platelet Count 217 X 10*3/uL (140-440); RBC 4.96 X 10*6/uL (4.10-5.20); RDW 14.6 % (11.5-14.5); WBC 6.71 X 10*3/uL (4.50-10.00)
[2023-12-24 22:49] LABS: Erythrocyte Sedimentation Rate 28 mm/Hr (0-30)
[2023-12-24 23:11] LABS: ALT 29 U/L (8-44); AST 28 U/L (13-35); Albumin 4.4 g/dL (3.8-4.9); Albumin/Globulin Ratio 1.57 Ratio (1.60-3.17); Alkaline Phosphatase 65 U/L (41-126); BUN/Creat Ratio 16.07 Ratio (12.00-20.00); Blood Urea Nitrogen 22.5 mg/dL (9.0-27.0); C Reactive Protein <0.30 mg/dL (0.00-0.80); Calcium 9.5 mg/dL (8.7-10.3); Carbon Dioxide 27.9 mmol/L (21.6-31.8); Chloride 104 mmol/L (96-109); Chol/HDL Ratio 2.18 Ratio; Globulin 2.8 g/dL (1.6-3.3); Glucose 108 mg/dL (70-110); Potassium 4.1 mmol/L (3.5-5.5); Sodium 143 mmol/L (135-145); T4, Free (Free Thyroxine) 1.46 ng/dL (0.80-1.80); Total Bilirubin 0.4 mg/dL (0.3-1.2); Total Protein 7.2 g/dL (6.2-8.2); Uric Acid 6.7 mg/dL (2.9-7.7)
[2023-12-26 10:03] LABS: Angiotensin-1 Converting Enz. 39 U/L (8-52)
== END | disposition home or self-care (01) ==
LOC: LABWHC1 09:36
PROVIDERS: ATTEND Family Medicine
DX: M13.0 Polyarthritis, unspecified (principal); E11.65 Type 2 diabetes mellitus with hyperglycemia; N18.31 Chronic kidney disease, stage 3a; I25.10 Atherosclerotic heart disease of native coronary artery without angina pectoris; R79.9 Abnormal finding of blood chemistry, unspecified
CPT/HCPCS: 36415; 80053; 80061; 82043; 82164; 82306; 82570; 82607; 83036; 83516; 83970; 84100; 84439; 84443; 84550; 85025; 85652; 86038; 86140; 86225; 86235; 86618; 86812

== ENCOUNTER → 2024-05-19 | Outpatient (CLI) | payer MEDICARE ==
[2024-05-19 23:36] LABS: HGB 15.7 g/dL (12.0-15.0); Lymphocytes % (A) 30.1 %; MCH 31.2 pg (27.0-32.0); MCV 97.2 FL (80.0-97.0); Mean Platelet Volume 11.9 FL (9.5-12.2); NRBC Per 100 WBC 0 X 10*3/uL (0.00-0.01); Neutrophils % (A) 47.4 %; Platelet Count 142 X 10*3/uL (140-440); RBC 5.04 X 10*6/uL (4.10-5.20); RDW 13.8 % (11.5-14.5); WBC 5.95 X 10*3/uL (4.50-10.00)
[2024-05-19 23:37] LABS: Basophils # (A) 0.06 X 10*3/uL (0.00-0.10); Lymphocytes # (A) 1.79 X 10*3/uL (0.90-5.00); Monocytes # (A) 0.97 X 10*3/uL (0.20-1.00); Monocytes % (A) 16.3 %; Neutrophils # (A) 2.82 X 10*3/uL (1.80-7.70)
[2024-05-19 23:56] LABS: Erythrocyte Sedimentation Rate 8 mm/Hr (0-30)
[2024-05-20 10:52] LABS: C Reactive Protein <0.30 mg/dL (0.00-0.80); Uric Acid 8.2 mg/dL (2.9-7.7)
[2024-05-20 11:44] LABS: ALT 32 U/L (8-44); AST 26 U/L (13-35); Albumin 4.3 g/dL (3.8-4.9); Albumin/Globulin Ratio 1.79 Ratio (1.60-3.17); Alkaline Phosphatase 66 U/L (41-126); BUN/Creat Ratio 13.07 Ratio (12.00-20.00); Blood Urea Nitrogen 19.6 mg/dL (9.0-27.0); Calcium 9.7 mg/dL (8.7-10.3); Carbon Dioxide 25.6 mmol/L (21.6-31.8); Chloride 101 mmol/L (96-109); Chol/HDL Ratio 1.89 Ratio; Globulin 2.4 g/dL (1.6-3.3); Glucose 107 mg/dL (70-110); LDL Cholesterol,Calculated 38.3 mg/dL (0.0-131.0); Potassium 3.8 mmol/L (3.5-5.5); Sodium 146 mmol/L (135-145); Total Bilirubin 0.5 mg/dL (0.3-1.2); Total Protein 6.7 g/dL (6.2-8.2)
== END | disposition home or self-care (01) ==
LOC: LABWHC1 09:48
PROVIDERS: ATTEND Family Medicine
DX: A26.0 Cutaneous erysipeloid (principal); E11.65 Type 2 diabetes mellitus with hyperglycemia; E11.22 Type 2 diabetes mellitus with diabetic chronic kidney disease; N18.31 Chronic kidney disease, stage 3a; M35.05 Sjogren syndrome with inflammatory arthritis
CPT/HCPCS: 36415; 80053; 80061; 82043; 82570; 83036; 84443; 84550; 85025; 85652; 86140; 86618

== ENCOUNTER → 2024-05-23 | Outpatient (CLI) | payer MEDICARE ==
--- NOTE | 2024-05-23 10:22 | MM ---
Reason for Exam: Hx of breast cancer, conservation therapy. Last screening mammogram was performed 7 month(s) ago. Patient History: Menarche at age 11. First Full-Term at age 16. Left ovary removed at age 45. Right ovary removed at age 45. Hysterectomy at age 45. Postmenopausal. Breast cancer, left, age 72. Unspecified Hormone, starting at age 72. 11/30/2022, Lumpectomy on the Left side. 11/30/2022, Malignant US breast localization LT on the left side. 10/07/2022, Malignant US biopsy breast VAD LT on the left side. Prior Study Comparison: 10/07/2022 Left MG diagnostic mammo LT wo CAD., [facility]. 11/30/2022 Left MG diagnostic mammo LT wo CAD., [facility]. 10/17/2023 Bilateral MG 3D diag mammo w/cad [facility], [facility]. Tissue Density: Left: The breasts are heterogeneously dense, which may obscure small masses. Findings: Analyzed By CAD. The pattern is stable. Slight increased densities at the prior biopsy site. Benign vascular calcifications within the left breast. Benign spherical calcification is present. No suspicious groups of microcalcifications, spiculated or lobular masses, architectural distortion or other secondary signs of malignancy are mammographically apparent. Overall Assessment: Benign, BI-RAD 2 Management: Screening Mammogram of both breasts in 6 months. A negative mammogram report should not preclude additional follow up of suspicious palpable abnormalities. Patient should continue monthly self breast exam. A clinical breast exam by your physician is recommended on an annual basis and results should be correlated with mammographic findings. Note on Lilian scores and lifetime risk: 1. A Lilian score greater than 3% is considered moderate risk. If this is the case, consider specialist referral to assess eligibility for a risk reducing agent. 2. If overall lifetime risk for the development of breast cancer is 20% or higher, the patient may qualify for future screening with alternating mammogram and breast MRI. [facility], , 05/23/2024 10:19 AM. Electronically signed and approved by: Carlos Addison D.O. Radiologis
== END | disposition home or self-care (01) ==
LOC: RADMAMWWP 09:55
PROVIDERS: ATTEND Internal Medicine
DX: C50.412 Malignant neoplasm of upper-outer quadrant of left female breast
CPT/HCPCS: 77061; 77065

== ENCOUNTER → 2024-09-07 | Outpatient (CLI) | payer MEDICARE ==
--- NOTE | 2024-09-07 12:33 | XR ---
EXAMINATION TYPE: XR tibia fibula RT DATE OF EXAM: 09/07/2024 COMPARISON: NONE CLINICAL INDICATION: Female, 74 years old with history of M79.604 PAIN IN RIGHT LEG; TECHNIQUE: 2 views FINDINGS: Osteopenia. Tiny plantar heel spur. Moderate degenerative change at the medial compartment of the knee. No periostitis or osteolysis. No acute fracture seen. IMPRESSION: Osteopenia. No acute osseous abnormality seen. There may be moderate degenerative change within the m edial compartment of the knee. [facility], , 09/07/2024 12:31 PM
[2024-09-07 15:19] LABS: ALT 22 U/L (8-44); AST 24 U/L (13-35); Albumin 4.2 g/dL (3.8-4.9); Albumin/Globulin Ratio 1.62 Ratio (1.60-3.17); Alkaline Phosphatase 67 U/L (41-126); Blood Urea Nitrogen 25.8 mg/dL (9.0-27.0); Calcium 9.6 mg/dL (8.7-10.3); Carbon Dioxide 29.6 mmol/L (21.6-31.8); Chloride 103 mmol/L (96-109); Chol/HDL Ratio 2.05 Ratio; Globulin 2.6 g/dL (1.6-3.3); Glucose 104 mg/dL (70-110); LDL Cholesterol,Calculated 43.1 mg/dL (0.0-131.0); Potassium 3.9 mmol/L (3.5-5.5); Sodium 146 mmol/L (135-145); T4, Free (Free Thyroxine) 1.66 ng/dL (0.80-1.80); Total Bilirubin 0.5 mg/dL (0.3-1.2); Total Protein 6.8 g/dL (6.2-8.2)
[2024-09-07 21:45] LABS: Basophils # (A) 0.04 X 10*3/uL (0.00-0.10); Basophils % (A) 0.7 %; Eosinophils % (A) 3.5 %; HCT 50.2 % (37.2-46.3); HGB 15.7 g/dL (12.0-15.0); Lymphocytes # (A) 1.94 X 10*3/uL (0.90-5.00); Lymphocytes % (A) 33.5 %; MCH 31.3 pg (27.0-32.0); MCHC 31.3 g/dL (32.0-37.0); MCV 100.2 FL (80.0-97.0); Mean Platelet Volume 12.2 FL (9.5-12.2); Monocytes # (A) 0.97 X 10*3/uL (0.20-1.00); Monocytes % (A) 16.8 %; NRBC Per 100 WBC 0 X 10*3/uL (0.00-0.01); Neutrophils # (A) 2.63 X 10*3/uL (1.80-7.70); Neutrophils % (A) 45.3 %; Platelet Count 175 X 10*3/uL (140-440); RBC 5.01 X 10*6/uL (4.10-5.20); RDW 15.3 % (11.5-14.5); WBC 5.79 X 10*3/uL (4.50-10.00)
== END | disposition home or self-care (01) ==
LOC: LABWHC1 11:05
PROVIDERS: ATTEND Family Medicine
DX: I12.9 Hypertensive chronic kidney disease with stage 1 through stage 4 chronic kidney disease, or unspecified chronic kidney disease (principal); E11.22 Type 2 diabetes mellitus with diabetic chronic kidney disease; E11.65 Type 2 diabetes mellitus with hyperglycemia; E03.9 Hypothyroidism, unspecified; M85.80 Other specified disorders of bone density and structure, unspecified site; M79.604 Pain in right leg; N18.9 Chronic kidney disease, unspecified
CPT/HCPCS: 36415; 80053; 80061; 83036; 84439; 84443; 85025; 85379

== ENCOUNTER → 2024-09-11 | Outpatient (CLI) | payer MEDICARE ==
--- NOTE | 2024-09-11 15:05 | US ---
EXAMINATION TYPE: US arterial LE multi level DATE OF EXAM: 09/11/2024 2:44 PM COMPARISONS: None. CLINICAL INDICATION: Female, 74 years old with history of M79.604 PAIN RIGHT LEG; Pain in right leg m ostly when walking, but sometimes at rest. *Patient was unable to tolerate cuff on right calf. TECHNIQUE: Systolic pressures were taken of the upper and lower extremity arteries with ankle-brachia l indices and toe brachial indices calculated bilaterally. History of: Smoker: Current Smoker Hypertension: Yes Diabetic: Yes Hyperlipidemia: ?? TIA/CVA: Yes Previous Vascular Surgery: No CAD: ?? MO: No Vascular Ulcers: No Claudication: Right Gangrene: None FINDINGS: Doppler Waveforms: Right: Monophasic Left: Biphasic Brachial Artery systolic pressure: Right: 162 Left: 161 Posterior Tibial artery systolic pressure: Right: 158 Left: 156 Dorsalis Pedis artery systolic pressure: Right: 132 Left: 134 Toe artery systolic pressure: Right: 99 Left: 137 Ankle-Brachial Indices: Right: 0.98 Left: 0.96 Toe Brachial Indices: Right: 0.61 Left: 0.85 (Normal > 0.6; Mild 0.35 - 0.59, Moderate 0.12 - 0.34, Severe <0.12) IMPRESSION: GIGI: Right: Normal 0.9 - 1.4, Recommendation: None Left: Normal 0.9 - 1.4, Recommendation: None [facility], , 09/11/2024 3:03 PM
== END | disposition home or self-care (01) ==
LOC: RADUSWWP 13:34
PROVIDERS: ATTEND Family Medicine
DX: M79.604 Pain in right leg (principal); I10 Essential (primary) hypertension; E11.51 Type 2 diabetes mellitus with diabetic peripheral angiopathy without gangrene
CPT/HCPCS: 93923

== ENCOUNTER → 2024-11-07 | Outpatient (CLI) | payer MEDICARE ==
--- NOTE | 2024-11-07 13:11 | US ---
EXAMINATION TYPE: US venous doppler duplex LE RT DATE OF EXAM: 11/07/2024 12:52 PM COMPARISON: Bilateral venous ultrasound December 03, 2020 CLINICAL INDICATION: Female, 74 years old with history of R22.41 SWELLING, MASS AND LUMP RLE; No hx o f DVT. Patient takes baby aspirin. Pain and swelling, no injury. TECHNIQUE: The lower extremity deep venous system is examined utilizing real time linear array sonog reyes with graded compression, color doppler sonography, and spectral doppler. SIDE PERFORMED: Right FINDINGS: VESSELS IMAGED: Common Femoral Vein Deep Femoral Vein Greater Saphenous Vein * Femoral Vein Popliteal Vein Small Saphenous Vein * Proximal Calf Veins (* superficial vessels) Right Leg: No evidence of DVT. Unable to visualize peroneal veins. No abnormalities seen right anterior sosa. IMPRESSION: 1. No evidence of deep vein thrombosis of the right lower extremity. [facility], , 11/07/2024 1:09 PM
== END | disposition home or self-care (01) ==
LOC: RADUSWWP 12:28
PROVIDERS: ATTEND Internal Medicine
DX: R22.41 Localized swelling, mass and lump, right lower limb (principal)

== ENCOUNTER → 2024-11-08 | Outpatient (CLI) | payer MEDICARE ==
--- NOTE | 2024-11-08 09:54 | US ---
EXAMINATION TYPE: US renal artery duplex complete DATE OF EXAM: 11/08/2024 COMPARISON: CT abdomen and pelvis 2020 CLINICAL INDICATION: Female, 74 years old with history of I10 Essential primary hypertension; N20.0 C ALCULUS; TECHNIQUE: Grayscale, color Doppler and spectral Doppler imaging of the bilateral renal arteries and kidneys. FINDINGS: MEASUREMENTS: RENAL SIZE: Right Kidney: 8.9 x 3.2 x 3.7cm Left Kidney: 9.7 x 4.1 x 4.7cm Right Kidney: 3.9cm hypoechoic area with calcified border seen laterally, 1.0cm echogenic focus infe rior pole Left Kidney: wnl Abd Aorta: wnl RESISTANCE INDEX Right: 0.74 Left: 0.70 RA/AO RATIO (< 3.5 ) Right: 1.4 Left: 2.5 RENAL ARTERY VELOCITY ( < 180 cm/s) Right: 84.6 Left: 149.0 Difficult and limited evaluation of right renal artery due to overlying bowel gas Grayscale imaging of the kidneys and show no evidence for hydronephrosis. There is exophytic rim calc ified approximate 3.9 cm cyst of the right kidney redemonstrated. IMPRESSION: Suboptimal study without convincing evidence for hemodynamically significant focal renal artery stenosis bilaterally. [facility], , 11/08/2024 9:51 AM
== END | disposition home or self-care (01) ==
LOC: RADUSWWP 08:24
PROVIDERS: ATTEND Family Medicine
DX: N20.0 Calculus of kidney (principal); N28.1 Cyst of kidney, acquired; I10 Essential (primary) hypertension
CPT/HCPCS: 93975

== ENCOUNTER → 2024-11-08 | Outpatient (CLI) | payer MEDICARE ==
--- NOTE | 2024-11-08 08:51 | CTL ---
EXAMINATION TYPE: CT Low Dose Lung DATE OF EXAM ORDERED: 11/08/2024 COMPARISON: Prior CT's 2023 and 2022. CLINICAL INDICATION: Female, 74 years old with history of F17.210 nicotine dependence; [facility], smoker, L yulia cancer screening, History of Smoking/tobacco use. TECHNIQUE: Low dose computed tomography scan was performed through the chest at 1 mm thick sections a nd reconstructed images in multiple planes at 1 mm and [address] DLP: [address] CTDI: 3.8 mGy Automated exposure control for dose reduction was used. CT DIAGNOSTIC QUALITY: Satisfactory FINDINGS: Nodules: A few scattered tiny nodules bilaterally are redemonstrated. For reference is a stable 2 mm peripheral right lower lobe nodule image 146. For reference is a 2 to 3 mm probable calcified nodule anteriorly right mid lung axial image 127. No greater than 6 mm noncalcified pulmonary nodules. LUNGS: COPD: Severity: Mild Fibrosis: Severity: None Lymph nodes: None Other findings: Scar tissue medial aspect of the left breast is redemonstrated RIGHT PLEURAL SPACE: Effusion: None Calcification: None Thickening: None Pneumothorax: None LEFT PLEURAL SPACE: Effusion: None Calcification: None Thickening: None Pneumothorax: None HEART: Heart Size: Mildly Enlarged Coronary Calcification: Moderate Pericardial Effusion: None OTHER FINDINGS: Upper abdomen: Cholecystectomy clips are redemonstrated Bony thorax: Scoliotic curvature upper thoracic spine again seen. Supraclavicular region: None Other: None IMPRESSION: Stable tiny scattered pulmonary nodules. No new greater than 4 mm pulmonary nodules. No s ignificant change from prior. CT LUNG RAD AND CT CHEST RECOMMENDATION: Lung-Rad 2 Benign Appearance or Behavior: Continue annual sc reening with LDCT in 12 months. S Modifier (other clinically significant findings): None [facility], , 11/08/2024 8:49 AM
== END | disposition home or self-care (01) ==
LOC: RADCTMAIN 08:08
PROVIDERS: ATTEND Family Medicine
DX: Z12.2 Encounter for screening for malignant neoplasm of respiratory organs (principal); J44.9 Chronic obstructive pulmonary disease, unspecified; F17.210 Nicotine dependence, cigarettes, uncomplicated; R91.8 Other nonspecific abnormal finding of lung field
CPT/HCPCS: 71271

== ENCOUNTER → 2024-12-25 | Outpatient (CLI) | payer MEDICARE ==
--- NOTE | 2024-12-25 15:10 | MM ---
Reason for Exam: Screening (asymptomatic). Last mammogram was performed 1 year(s) and 2 month(s) ago. Patient History: Menarche at age 11. First Full-Term at age 16. Left ovary removed at age 45. Right ovary removed at age 45. Hysterectomy at age 45. Postmenopausal. Breast cancer, left, age 72. Unspecified Hormone, starting at age 72. 11/30/2022, Lumpectomy on the Left side. 11/30/2022, Malignant US breast localization LT on the left side. 10/07/2022, Malignant US biopsy breast VAD LT on the left side. Prior Study Comparison: 11/30/2022 Left MG diagnostic mammo LT wo CAD., [facility]. 10/17/2023 Bilateral MG 3D diag mammo w/cad [facility], [facility]. 05/23/2024 Left MG 3D diag mammo w/cad LT, [facility]. Tissue Density: There are scattered areas of fibroglandular density. Findings: Analyzed By CAD. Benign-appearing vascular calcifications bilaterally is redemonstrated. Benign-appearing bilateral axillary lymph nodes are again seen. There is no suspicious group of microcalcifications or new suspicious mass in either breast. Overall Assessment: Benign, BI-RAD 2 Management: Screening Mammogram of both breasts in 1 year. . Patient should continue monthly self-breast exams. A clinical breast exam by your physician is recommended on an annual basis. This exam should not preclude additional follow-up of suspicious palpable abnormalities. Note on Lilian scores and lifetime risk: 1. A Lilian score greater than 3% is considered moderate risk. If this is the case, consider specialist referral to assess eligibility for a risk reducing agent. 2. If overall lifetime risk for the development of breast cancer is 20% or higher, the patient may qualify for future screening with alternating mammogram and breast MRI. [facility], , 12/25/2024 3:06 PM. Electronically signed and approved by: Mauri Simmons M.D.
== END | disposition home or self-care (01) ==
LOC: RADMAMWWP 13:43
PROVIDERS: ATTEND Internal Medicine
DX: Z12.31 Encounter for screening mammogram for malignant neoplasm of breast (principal); R92.323 Mammographic fibroglandular density, bilateral breasts; Z78.0 Asymptomatic menopausal state; Z85.3 Personal history of malignant neoplasm of breast
CPT/HCPCS: 77063; 77067